=== PATIENT | male | born 1955 | race Caucasian/White ===

== ENCOUNTER 2016-06-23 09:46 | Inpatient (IN) | payer OTHER ==
[2016-06-23] VITALS (51 sets, daily range): BP systolic 98–162; BP diastolic 46–104; PULSE 65–125; RESP 12–41; Ht 170.2 cm; Wt 114.0 kg
[~2016-06-23] VITALS: Ht 170.2 cm; Wt 114.0 kg
[~2016-06-23 09:46] MED LIST: BISA-57 PO; CEFAZOLIN 1 GM INJ ONE; ENAL10TA78 PO; HYDR-762 PO; SENN-53 PO; SUCCINYLCHOLINE CHLORIDE 100 MG/5 ML SYG IV ONE
[2016-06-23] MEDS ORDERED: morphine 2 MG INJ IV ONE (12:00)
[2016-06-23] MEDS ORDERED: MIDAZOLAM 1 MG/ML 2 ML INJ ONE ×2 (12:03→13:05)
[2016-06-23] MEDS ORDERED: GLYCOPYRROLATE 0.4 MG INJ ONE (12:03)
[2016-06-23] MEDS ORDERED: ROCURONIUM 50 MG INJ ONE (12:03)
[2016-06-23] MEDS ORDERED: PROPOFOL 20 ML ONE (12:03)
[2016-06-23] MEDS ORDERED: FENTAnyl 50 MCG/ML VIAL ONE ×2 (12:03→15:34)
[2016-06-23] MEDS ORDERED: NEOSTIGMINE 3 MG/3 ML SYRINGE ONE (12:03)
[2016-06-23] MEDS ORDERED: LIDOCAINE 2% (SDV) 5 ML INJ ONE (12:03)
[2016-06-23] MEDS ORDERED: DEXAMETHASONE 4 MG/ML 1 ML INJ ONE (12:04)
[2016-06-23] MEDS ORDERED: ONDANSETRON 4 MG INJ ONE (12:04)
[2016-06-23] MEDS ORDERED: ATOR10TA65 PO (12:05)
[2016-06-23] MEDS ORDERED: QUIN10TA19 PO (12:05)
[2016-06-23] MEDS ORDERED: ASPI-664 PO (12:05)
[2016-06-23] MEDS ORDERED: DOCU-159 PO (12:05)
[2016-06-23] MEDS ORDERED: TEMA30CA PO (12:05)
[2016-06-23] MEDS ORDERED: CEPH500C PO (12:05)
--- NOTE | 2016-06-23 12:09 | HPN ---
Date/Time of Note Date/Time of Note DATE: 06/23/16 TIME: 12:09 Interval H&P Admission Note Pt. seen H&P reviewed: No system changes SHERLY ROGERS PA-C Jun 23, 2016 12:09
[2016-06-23] MEDS ORDERED: morphine 4 MG/ML VIAL IV STA (12:13)
[2016-06-23] MEDS ORDERED: FENTAnyl 50 MCG/ML VIAL IV PRN ×2 (12:30)
[2016-06-23] MEDS ORDERED: EPHEDrine SULFATE 50 MG/5 ML SYG IV PRN (12:30)
[2016-06-23] MEDS ORDERED: morphine (1 MG/ML) 10ML SYRINGE IV PRN ×3 (12:30)
[2016-06-23] MEDS ORDERED: DIPHENHYDRAMINE 50 MG INJ IV PRN (12:30)
[2016-06-23] MEDS ORDERED: HYDROmorphONE (0.2 MG/ML) 10ML SYG IV PRN ×2 (12:30)
[2016-06-23] MEDS ORDERED: MEPERIDINE 25 MG INJ IV PRN (12:30)
[2016-06-23] MEDS ORDERED: ATROPINE 1 MG/10 ML SYRINGE IV PRN (12:30)
[2016-06-23] MEDS ORDERED: OXYCODONE/ACETAMINOPHEN (5/325) TAB PO PRN ×2 (12:30)
[2016-06-23] MEDS ORDERED: MIDAZOLAM 1 MG/ML 2 ML INJ IV PRN (12:30)
[2016-06-23] MEDS ORDERED: ONDANSETRON 4 MG INJ IV PRN ×2 (12:30→14:30)
[2016-06-23] MEDS ORDERED: hydrALAzine 20 MG INJ IV PRN (12:30)
[2016-06-23] MEDS ORDERED: LABETALOL HCL 20MG INJ IV PRN (12:30)
[2016-06-23] MEDS ORDERED: MIDAZOLAM 1 MG/ML 2 ML INJ IV ONE (13:00)
[2016-06-23] MEDS ORDERED: LIDOCAINE 0.5%/EPI (MDV) 50 ML INJ ONE (13:03)
[2016-06-23] MEDS ORDERED: GELATIN SIZE 100 SPONGE ONE (13:03)
[2016-06-23] MEDS ORDERED: THROMBIN 5000 UNIT VIAL ONE (13:04)
[2016-06-23] MEDS ORDERED: POLYMYXIN/BACITRACIN 1L IRRIG ONE (13:04)
--- NOTE | 2016-06-23 13:42 | PREOPHP ---
DATE OF ADMISSION: 06/23/2016 HISTORY OF PRESENT ILLNESS: The patient was originally seen in the office with a complaint of low b ack pain, pain shooting down to both of his lower extremities, especially on the right side. He sta luis that he was also having neck pain, with pain to the shoulders and has not been ambulatory, using a wheelchair to get around. The patient was sent for MRI of the cervical, thoracic and lumbar spin e. Results were reviewed, which showed the patient had severe cervical stenosis at C6 C7, with evid ence of cord compression. The patient had evidence of radiculopathy, had evidence of myelopathy. H e was quadriplegic, could not walk. He uses a wheelchair to get around. His condition is getting w orse. The patient will need surgical decompression of the cervical spine as soon as possible. He i s having myelopathy with quadriparesis. PAST MEDICAL HISTORY: Per chart. PAST SURGICAL HISTORY: Complex genitalia surgery, cholecystectomy, lymphedema surgery. SOCIAL HISTORY: Lives with . ALLERGIES: PER CHART. FAMILY HISTORY: Unremarkable. REVIEW OF SYSTEMS: Additional 10-point review of systems conducted. Pertinent positives in the HPI, otherwise negative. PHYSICAL EXAMINATION: GENERAL: The patient is awake, alert, oriented, followed commands properly. HEENT: Head is atraumatic, normocephalic. Eyes, sclerae area clear, nonicteric. TMs intact. Pupi ls equal and reactive. No . NECK: Supple, no thyromegaly, no JVD. No accessory muscle usage. PULMONARY: No dyspnea, no tachypnea. CARDIOVASCULAR: The patient has extensive pedal edema, especially on the right side, possibly lymph edema as well. ABDOMEN: Soft, without guarding. PERIPHERAL VASCULAR: Has lymphedema, right greater than left. NEUROLOGIC: GCS 15. Cranial nerves I through XII are intact. No gross abnormalities noted. EXTREMITIES: Upper extremity examination, the patient has weakness in both of his lower and upper ex tremities, right side greater than the left. Sensation is intact throughout. Lower extremity exami nation difficulty with range of motion in the hips, right greater than left. Difficulty with range of motion of the right knee, greater than left. Difficulty with ankle flexion and extension, right greater than left. Sensation is intact. Strength, right side is weaker compared to the left. MRI findings: Severe cervical stenosis C6-C7, with cord compression. RECOMMENDATION: The patient is a middle-aged male who arrived to the office with a complaint of nec k pain, weakness in the upper and lower extremities, and difficulty with ambulation. MRI reviewed, and shows severe cervical stenosis at C6-C7, with cord compression and myelopathy. Patient is quadr iplegic at this point. Conservative management will not benefit this patient. He has been develope d quadriplegia at this point, he has cord compression on cervical MRI. The patient will need immedi ate decompression of the cervical spine, in the form of cervical 6 and cervical 7 laminectomy with p ossible in situ fusion. The operation was discussed with the patient in great detail. Complication s were explained, including bleeding, infection, permanent neurological damage, complications with a nesthesia, including a myocardial infarction . The patient has agreed to the surgical interven tion. Preop was performed. The patient has been cleared by the primary physician. The patient will be admitted to the hospital after surgical decompression of the cervical spine for further care and management. Thank you again. The patient was seen and examined. Discussed with Dr. Castellano. Dictated By: SHERLY SUH for RAFAEL MCKINLEY/MARILYN Conf#: [id number] DID#: [id number]
[2016-06-23] MEDS ORDERED: hydrALAzine 20 MG INJ ONE (14:39)
[2016-06-23] MEDS ORDERED: LABETALOL HCL 20MG INJ ONE (15:32)
[2016-06-23] MEDS ORDERED: HYDROmorphONE (0.2 MG/ML) 10ML SYG IV ONE (16:53)
[2016-06-23] MEDS ORDERED: ALBUTEROL 0.083% (NEB) 2.5 MG/3 ML AMP ONE (17:03)
[2016-06-23] MEDS ORDERED: DIAZEPAM 5 MG/ML SYG ONE (17:06)
[2016-06-23] MEDS ORDERED: DIAZEPAM 5 MG/ML SYG IV STA (17:31)
[2016-06-23] MEDS: HYDROmorphONE (0.2 MG/ML) 10ML SYG IV PRN ×4 (17:34→18:22)
[2016-06-23] MEDS ORDERED: HALOPERIDOL 5 MG INJ ONE (19:59)
[2016-06-23] MEDS: DEXTROSE 5%-LR 1,000 ML IV SCH (20:19)
[2016-06-23] MEDS: CEFAZOLIN 1 GM/50 ML (PMX) 50 ML IVPB SCH (21:42)
[2016-06-23] MEDS: morphine 2 MG INJ IV PRN (22:10)
[2016-06-23] MEDS: HYDROCODONE/APAP (10/325) TAB PO PRN (23:45)
[2016-06-24] MEDS ORDERED: ACETAMINOPHEN 1000MG/100ML IV 100 ML IVPB PRN
[2016-06-24] MEDS: morphine 2 MG INJ IV PRN ×6 (01:03→22:26)
[2016-06-24 04:00] VITALS: BP 134/62; PULSE 92; RESP 18
[2016-06-24] MEDS: DEXTROSE 5%-LR 1,000 ML IV SCH ×2 (04:48→12:02)
[2016-06-24] MEDS: HYDROCODONE/APAP (10/325) TAB PO PRN ×3 (04:50→23:36)
[2016-06-24 05:08] LABS: ADD SCAN DIFF NO
[2016-06-24 05:17] LABS: BASOPHILS % 0.2 % (0.0-2.0); HEMATOCRIT 40.5 % (42.0-52.0); HEMOGLOBIN 13.3 g/dl (14.0-18.0); LYMPHOCYTES # 0.9 10^3/ul (0.8-2.9); LYMPHOCYTES % 7.5 % (15.0-51.0); MEAN CORPUSCULAR HGB CONC 32.8 g/dl (32.0-37.0); MEAN CORPUSCULAR VOLUME 88.2 fl (82.0-101.0); MEAN PLATELET VOLUME 10.2 fl (7.4-10.4); MONOCYTE # 0.8 10^3/ul (0.3-0.9); MONOCYTES % 6.8 % (0.0-11.0); NEUTROPHIL # 10.4 10^3/ul (1.6-7.5); NEUTROPHILS % 85.3 % (39.0-77.0); PLATELET COUNT 267 10^3/UL (140-415); RED BLOOD COUNT 4.59 10^6/ul (4.70-6.10); RED CELL DISTRIBUTION WIDTH 13.7 % (11.5-14.5); WHITE BLOOD COUNT 12.2 10^3/ul (4.8-10.8)
[2016-06-24] MEDS: LORAZEPAM 1 MG TAB PO PRN ×2 (05:33→12:02)
[2016-06-24 05:46] LABS: POTASSIUM 3.7 mmol/L (3.5-5.1)
[2016-06-24 05:49] LABS: CREATININE 0.69 mg/dl (0.61-1.24)
[2016-06-24 05:50] LABS: CALCIUM 8.6 mg/dl (8.4-10.2)
[2016-06-24] MEDS: CEFAZOLIN 1 GM/50 ML (PMX) 50 ML IVPB SCH ×3 (06:13→22:20)
[2016-06-24 07:00] VITALS: BP 167/81; RESP 20
--- NOTE | 2016-06-24 08:15 | HP ---
DATE OF ADMISSION: 06/23/2016 HISTORY OF PRESENT ILLNESS: The patient is a 60-year-old gentleman with history of hypertension, ch ronic lymphedema secondary to [place] disease, hypertension, anxiety, depression, schizoaffective dis order, coronary artery disease, peripheral vascular disease, dyslipidemia, morbid obesity. Was eval uated by Dr. Singh initially with lower back pain radiating to both lower extremities. Subsequent ly, the patient also started having neck pain with pain to the shoulder and was having difficulty am bulating and was using a wheelchair to get around. The patient underwent MRI of the C-spine, thorac ic spine and lumbar spine, and was noted to have a severe cervical stenosis at C6-C7 with evidence o f cord compression. The patient also had evidence of radiculopathy and myelopathy. The patient was quadriplegic and was progressively getting worse. The patient underwent elective decompression of the cervical spine. The patient postoperatively has transient agitation which was managed with jonah odiazepine. The patient was seen in the recovery room and was lethargic. Review of systems could n ot be obtained. Patient did not have any vomiting after surgery. The patient was not short of samara th or wheezing. PAST MEDICAL HISTORY: The patient has history of chronic pain syndrome, anxiety, hypotestosteronism . PAST SURGICAL HISTORY: Status post skin graft, cholecystectomy, debridement of the leg, skin graft of the leg, debridement of leg wounds with skin graft. FAMILY HISTORY: Father had stroke. Mother had congenital lymphedema. ALLERGIES: NONE. SOCIAL HISTORY: No smoking, no alcohol. PHYSICAL EXAMINATION: GENERAL: The patient is lethargic, arousable. C-spine collar in place. VITAL SIGNS: Temperature 97.1, pulse 98, respirations 20, blood pressure 138/72, O2 saturation 100% on mask, which was subsequently removed and the patient was put on nasal cannula and was saturating 97%. HEENT: Conjunctivae and lids normal. Nose and ears normal externally. NECK: The patient has C-spine collar on. CHEST: Fairly clear. CARDIOVASCULAR: S1, S2 normal. No murmur. ABDOMEN: Soft, obese, nontender. EXTREMITIES: Bilateral lymphedema of both lower extremities and also evidence of previous surgery i n the legs. NEUROLOGIC: The patient is lethargic but arousable, however, a detailed neurological examination wa s deferred due to patient's postoperative status. IMPRESSION: 1. Cervical myelopathy. 2. Coronary artery disease. 3. Congenital lymphedema. 4. Hypertension. 5. Depression. 6. Schizoaffective disorder. 7. Hypotestosteronism. 8. Dyslipidemia. PLAN: The patient will be admitted on medical floor. He will be continued on IV cefazolin as per pr otocol and will be given IV fluid, IV morphine for pain control. The patient will also be given Per cocet for moderate pain. The patient will be continued on Lipitor, Vasotec, and stool softener as a t home. The patient's preop labs revealed a white count of 6.3, hemoglobin 15.6. We will continue t o follow him postoperatively. Further recommendations will depend on the patient's hospital course and recommendations from Dr. Singh. Dictated By: WILIAN SAMAYOA/MARILYN Conf#: [id number] DID#: [id number] CC: RAFAEL SINGH MD; WILIAN OLIVARES MD;*End*
[2016-06-24 08:30] VITALS: BP 130/68; PULSE 90; RESP 18
[2016-06-24] MEDS: SENNA TAB PO SCH ×2 (09:00→21:00)
[2016-06-24] MEDS: BISACODYL (EC) 5 MG TAB PO SCH (09:00)
[2016-06-24] MEDS: DOCUSATE SODIUM 100 MG CAP PO SCH ×2 (09:00→21:00)
[2016-06-24] MEDS: ENALAPRIL 10 MG TAB PO SCH (09:04)
--- NOTE | 2016-06-24 10:36 | RADRPT ---
PROCEDURE: Intraoperative imaging of the cervical spine with fluoroscopy. CLINICAL INDICATION: Neck pain. Intraoperative. TECHNIQUE: A single lateral image of the cervical spine once obtained in the operating room with a n image intensifier. No radiologist was in attendance. 5.6 seconds of fluoroscopy time was used. COMPARISON: No prior study is available for comparison. FINDINGS: Surgical instruments are noted overlying the cervical spine. IMPRESSION: 1. Intraoperative imaging of the cervical spine. RPTAT: QQ .Gonsalo Christopher MD, MD Date Time Electronically viewed and signed by .Gonsalo Christopher MD, MD on 06/24/2016 10:35 .R/
--- NOTE | 2016-06-24 11:09 | PN ---
Date/Time of Note Date/Time of Note DATE: 06/24/16 TIME: 11:07 Assessment/Plan VTE Prophylaxis VTE Prophylaxis Intervention: other Lines/Catheters IV Catheter Type (from Nrsg): Peripheral IV Urinary Cath still in place: Yes Reason Cath still needed: skin wounds contaminated by urine Assessment/Plan Chief Complaint/Hosp Course 1. Cervical myelopathy. - s/p surgery 2. Coronary artery disease. - continue to monitor 3. Congenital lymphedema. 4. Hypertension. 5. Depression. 6. Schizoaffective disorder. 7. Hypotestosteronism. 8. Dyslipidemia. Problems: Subjective 24 Hr Interval Summary Free Text/Dictation Patient is uncomfortable with neck pain Exam/Review of Systems Vital Signs Vitals Vital Signs Date Time Temp Pulse Resp B/P Pulse Ox O2 Delivery O2 Flow Rate FiO2 06/24/16 07:00 98.7 90 20 167/81 99 06/24/16 04:00 Nasal Cannula 06/23/16 16:45 80 Intake and Output 06/23/16 06/23/16 06/24/16 15:00 23:00 07:00 Intake Total 20 ml 850 ml 1350 ml Output Total 850 ml 1320 ml Balance 20 ml 0 ml 30 ml Exam Constitutional: well developed Head: atraumatic, normocephalic Neck: supple Cardiovascular: regular rate and rhythm Gastrointestinal: non-tender, soft Results Result Diagram: 06/24/16 0429 06/24/16 0429 Results 24 hrs Laboratory Tests Test 06/24/16 04:29 Anion Gap 15 Basophils # 0.0 Basophils % 0.2 Blood Urea Nitrogen 10 Calcium Level 8.6 Carbon Dioxide Level 27 Chloride Level 100 Creatinine 0.69 Eosinophils # 0.0 Eosinophils % 0.0 Glucose Level 168 Hematocrit 40.5 L Hemoglobin 13.3 L Lymphocytes # 0.9 Lymphocytes % 7.5 L Mean Corpuscular Hemoglobin 29.0 Mean Corpuscular Hemoglobin Concent 32.8 Mean Corpuscular Volume 88.2 Mean Platelet Volume 10.2 Monocytes # 0.8 Monocytes % 6.8 Neutrophils # 10.4 H Neutrophils % 85.3 H Nucleated Red Blood Cells # 0.0 Nucleated Red Blood Cells % 0.0 Platelet Count 267 Potassium Level 3.7 Red Blood Count 4.59 L Red Cell Distribution Width 13.7 Sodium Level 138 White Blood Count 12.2 H Medications Medications Current Medications Dextrose/Lactated Ringer's (D5-Lr) 1,000 ml @ 70 mls/hr [id number] IV Last administered on 06/23/16 20:19; Admin Dose 70 MLS/HR; Start 06/23/16 at 14:30 Morphine Sulfate (morphine) 2 mg Q3H PRN IV severe pain Last administered on 10:24; Admin Dose 2 MG; Start 06/23/16 at 14:30 Acetaminophen/ Hydrocodone Bitart ([place] (10/325)) 1 tab Q4H PRN PO PAIN Last administered on 06/24/16 04:50; Admin Dose 1 TAB; Start 06/23/16 at 14:30 Ondansetron HCl 4 mg 4 mg Q6H PRN IV NAUSEA AND/OR VOMITING; Start 06/23/16 at 14:30 Cefazolin Sodium (Ancef 1 Gm/50 ml (Pmx)) 50 ml @ 100 mls/hr Q8 IVPB Last administered on 06/24/16 06:13; Admin Dose 100 MLS/HR; Start 06/23/16 at 22:00; Stop 06/24/16 at 22:00 Atorvastatin Calcium (Lipitor) 10 mg QHS PO ; Start 06/24/16 at 21:00 Bisacodyl (Dulcolax) 5 mg DAILY PO ; Start 06/24/16 at 09:00 Docusate Sodium (Colace) 100 mg BID PO ; Start 06/24/16 at 09:00 Enalapril Maleate (Vasotec) 10 mg DAILY PO Last administered on 06/24/16 09:04 ; Admin Dose 10 MG; Start 06/24/16 at 09:00 Senna 1 tab 1 tab BID PO ; Start 06/24/16 at 09:00 Acetaminophen (Ofirmev 1000mg/ 100ml Iv) 100 ml @ 400 mls/hr Q6H PRN IVPB PAIN LEVEL 1-3 OR FEVER; Start 06/24/16 at 00:00 Lorazepam (Ativan) 1 mg Q6H PRN PO ANXIETY Last administered on 06/24/16 05:33 ; Admin Dose 1 MG; Start 06/24/16 at 05:30 AMILCAR RICK Jun 24, 2016 11:09
[2016-06-24] MEDS: CYCLOBENZAPRINE 10 MG TAB PO PRN (16:32)
[2016-06-24 21:15] VITALS: BP 147/74; RESP 20
[2016-06-24] MEDS: ATORVASTATIN 10 MG TAB PO SCH (22:19)
[2016-06-25] MEDS: LORAZEPAM 1 MG TAB PO PRN ×2 (00:12→14:19)
[2016-06-25 00:45] VITALS: BP 142/67; RESP 20
[2016-06-25] MEDS: CYCLOBENZAPRINE 10 MG TAB PO PRN (01:08)
[2016-06-25] MEDS: DEXTROSE 5%-LR 1,000 ML IV SCH ×3 (06:10→21:21)
[2016-06-25] MEDS: HYDROCODONE/APAP (10/325) TAB PO PRN ×3 (06:54→23:29)
--- NOTE | 2016-06-25 07:18 | CONS ---
Date/Time of Note Date/Time of Note DATE: 06/25/16 TIME: 07:14 Assessment/Plan Assessment/Plan Additional Assessment/Plan seen/examined awake/alert/follows/moves all/sensation intact cervical 6-7 laminectomy drain intact,40 cc overnight will change morphine to dilaudid, pt co morphine causes dry mouth. pt/ot mri cervical pending wound care Consultation Date/Type/Reason Admit Date/Time Jun 23, 2016 at 09:46 Initial Consult Date Exam/Review of Systems Vital Signs Vitals Vital Signs Date Time Temp Pulse Resp B/P Pulse Ox O2 Delivery O2 Flow Rate FiO2 06/25/16 00:45 97.5 102 20 142/67 93 06/24/16 21:30 Nasal Cannula 2.0 06/23/16 16:45 80 Intake and Output 06/24/16 06/24/16 06/25/16 15:00 23:00 07:00 Intake Total 50 ml 1860 ml 1650 ml Output Total 3050 ml 2540 ml Balance 50 ml -1190 ml -890 ml Results Result Diagram: 06/24/16 0429 06/24/16 0429 Medications Medications Current Medications Dextrose/Lactated Ringer's (D5-Lr) 1,000 ml @ 70 mls/hr [id number] IV Last administered on 06/25/16 06:10; Admin Dose 70 MLS/HR; Start 06/23/16 at 14:30 Acetaminophen/ Hydrocodone Bitart ([place] (10/325)) 1 tab Q4H PRN PO PAIN Last administered on 06/25/16 06:54; Admin Dose 1 TAB; Start 06/23/16 at 14:30 Ondansetron HCl (Zofran Inj) 4 mg Q6H PRN IV NAUSEA AND/OR VOMITING; Start 06/23 at 14:30 Atorvastatin Calcium (Lipitor) 10 mg QHS PO Last administered on 06/24/16 22:19 ; Admin Dose 10 MG; Start 06/24/16 at 21:00 Bisacodyl (Dulcolax) 5 mg DAILY PO ; Start 06/24/16 at 09:00 Docusate Sodium (Colace) 100 mg BID PO ; Start 06/24/16 at 09:00 Enalapril Maleate (Vasotec) 10 mg DAILY PO Last administered on 06/24/16 09:04 ; Admin Dose 10 MG; Start 06/24/16 at 09:00 Senna 1 tab 1 tab BID PO ; Start 06/24/16 at 09:00 Acetaminophen (Ofirmev 1000mg/ 100ml Iv) 100 ml @ 400 mls/hr Q6H PRN IVPB PAIN LEVEL 1-3 OR FEVER; Start 06/24/16 at 00:00 Lorazepam (Ativan) 1 mg Q6H PRN PO ANXIETY Last administered on 06/25/16 00:12 ; Admin Dose 1 MG; Start 06/24/16 at 05:30 Cyclobenzaprine HCl (Flexeril) 10 mg Q8 PRN PO spasm Last administered on 01:08; Admin Dose 10 MG; Start 06/24/16 at 16:30 Hydromorphone HCl (Dilaudid) 1 mg Q4HWA PRN IV PAIN; Start 06/25/16 at 07:30; Status SHERLY JIMENES PA-C Jun 25, 2016 07:18
[2016-06-25 07:39] VITALS: BP 137/69; RESP 16
[2016-06-25] MEDS: HYDROmorphONE 1 MG/ML SYG IV PRN ×3 (07:43→11:35)
[2016-06-25] MEDS: SENNA TAB PO SCH ×2 (09:00→21:21)
[2016-06-25] MEDS: ENALAPRIL 10 MG TAB PO SCH (09:00)
[2016-06-25] MEDS: DOCUSATE SODIUM 100 MG CAP PO SCH ×2 (09:00→21:21)
[2016-06-25] MEDS: BISACODYL (EC) 5 MG TAB PO SCH (09:00)
--- NOTE | 2016-06-25 12:38 | PN ---
Date/Time of Note Date/Time of Note DATE: 06/25/16 TIME: 12:37 Assessment/Plan VTE Prophylaxis VTE Prophylaxis Intervention: other Lines/Catheters IV Catheter Type (from Nrsg): Peripheral IV Urinary Cath still in place: Yes Reason Cath still needed: skin wounds contaminated by urine Assessment/Plan Chief Complaint/Hosp Course 1. Cervical myelopathy. - s/p surgery 2. Coronary artery disease. - continue to monitor 3. Congenital lymphedema. 4. Hypertension. 5. Depression. 6. Schizoaffective disorder. 7. Hypotestosteronism. 8. Dyslipidemia. Problems: Subjective 24 Hr Interval Summary Free Text/Dictation Still with neck pain Exam/Review of Systems Vital Signs Vitals Vital Signs Date Time Temp Pulse Resp B/P Pulse Ox O2 Delivery O2 Flow Rate FiO2 06/25/16 08:00 Nasal Cannula 2.0 06/25/16 07:39 98.5 99 16 137/69 98 06/23/16 16:45 80 Intake and Output 06/24/16 06/24/16 06/25/16 15:00 23:00 07:00 Intake Total 50 ml 1860 ml 1650 ml Output Total 3050 ml 2540 ml Balance 50 ml -1190 ml -890 ml Exam Constitutional: well developed Head: normocephalic Neck: supple Respiratory: clear to auscultation Cardiovascular: regular rate and rhythm Gastrointestinal: non-tender, soft Extremities: normal pulses Results Result Diagram: 06/24/16 0429 06/24/16 0429 Medications Medications Current Medications Dextrose/Lactated Ringer's (D5-Lr) 1,000 ml @ 70 mls/hr [id number] IV Last administered on 06/25/16 06:10; Admin Dose 70 MLS/HR; Start 06/23/16 at 14:30 Acetaminophen/ Hydrocodone Bitart ([place] (10/325)) 1 tab Q4H PRN PO PAIN Last administered on 06/25/16 06:54; Admin Dose 1 TAB; Start 06/23/16 at 14:30 Ondansetron HCl (Zofran Inj) 4 mg Q6H PRN IV NAUSEA AND/OR VOMITING; Start 06/23 at 14:30 Atorvastatin Calcium (Lipitor) 10 mg QHS PO Last administered on 06/24/16 22:19 ; Admin Dose 10 MG; Start 06/24/16 at 21:00 Bisacodyl (Dulcolax) 5 mg DAILY PO ; Start 06/24/16 at 09:00 Docusate Sodium (Colace) 100 mg BID PO ; Start 06/24/16 at 09:00 Enalapril Maleate (Vasotec) 10 mg DAILY PO Last administered on 06/24/16 09:04 ; Admin Dose 10 MG; Start 06/24/16 at 09:00 Senna 1 tab 1 tab BID PO ; Start 06/24/16 at 09:00 Acetaminophen (Ofirmev 1000mg/ 100ml Iv) 100 ml @ 400 mls/hr Q6H PRN IVPB PAIN LEVEL 1-3 OR FEVER; Start 06/24/16 at 00:00 Lorazepam (Ativan) 1 mg Q6H PRN PO ANXIETY Last administered on 06/25/16 00:12 ; Admin Dose 1 MG; Start 06/24/16 at 05:30 Cyclobenzaprine HCl (Flexeril) 10 mg Q8 PRN PO spasm Last administered on 01:08; Admin Dose 10 MG; Start 06/24/16 at 16:30 Hydromorphone HCl (Dilaudid) 1 mg Q4HWA PRN IV PAIN Last administered on 11:35; Admin Dose 1 MG; Start 06/25/16 at 07:30 AMILCAR RICK 5, 2017 12:38
[2016-06-25] MEDS ORDERED: HYDROmorphONE 1 MG/ML SYG IV STA (12:51)
[2016-06-25] MEDS ORDERED: HYDROmorphONE 2 MG/ML SYG IV SCH (12:58)
[2016-06-25] MEDS: HYDROmorphONE 2 MG/ML SYG IV PRN ×3 (15:02→21:23)
--- NOTE | 2016-06-25 18:13 | RADRPT ---
PROCEDURE: MR Cervical Spine. CLINICAL INDICATION: Status post cervical decompression, cord compression. TECHNIQUE: An MRI of the cervical spine was performed on a [employer] short bore high-definition 3 meghan [employer]ir[employer] utilizing the following sequences: Sagittal T1 weighted, sagittal and axial T2 weighted, sagi ttal STIR, and axial GRE. COMPARISON: No prior studies are available for comparison. FINDINGS: There is straightening of the normal lordosis of the cervical spine. Trace anterolisthesis of C3 on C4 is evident. 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 Postsurgical changes are seen at multiple levels will be described below. The craniocervical junction is unremarkable. There is evidence of underlying congenital central s tenosis with the AP diameter of the canal measuring approximately 10 mm at multiple levels. C2-3: Moderate disk space narrowing is evident. There is a broad-based osteophyte/disk complex with a superimposed central disk protrusion measuring approximately 3.6 mm. This together ligamentum fl avum hypertrophy results in severe acquired central canal stenosis with the AP diameter of the canal measuring approximately 4.7 mm centrally. There is cord effacement without cord signal abnormality . Uncovertebral osteophytes and facet arthropathy contribute to moderate - severe bilateral foramina l narrowing. There is evidence of fluid signal intensity surrounding the right greater than left fa cet joints and lamina. Edema is seen within the adjacent soft tissues. A small amount of preverteb ral fluid is evident. C3-4: The disk is normal in height an osteophyte/disk complex is noted. This effaces the ventral th ecal sac resulting in severe acquired central canal stenosis with the AP diameter of the canal measu ring just under 6 mm. Mild cord effacement is seen without cord signal abnormality. Uncovertebral o steophytes and facet arthropathy contribute to moderate - severe right and severe left foraminal naila rowing. C4-5: Mild disk space narrowing is seen. An osteophyte/disk complex is present. There has been pos terior decompression at the lower disk level with no gross central stenosis seen at the upper C5 lev el. At the C4-5 disk level there appears to be moderate central stenosis. Moderate right and modera tely severe left foraminal narrowing is evident. Postsurgical changes are seen within the posterior soft tissues and along the lateral musculature of the spine bilaterally. 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 There appears t o have been posterior decompression at this level with partial hemilaminectomies identified. There is no gross evidence of bony central stenosis. There may be a very small amount of postoperative fl uid or possibly blood products in the posterior epidural space, though no significant mass effect up on the cord is seen. The foramen appear adequately patent. Postsurgical changes are seen in the la teral neck musculature as described above. C6-7: There is moderately severe discogenic disease with Modic type 2 discogenic endplate changes. T here is prominent anterior spondylosis. There is an osteophyte/disk complex with prominent T2-weigh luis hypointensity and T1-weighted hyperintensity in what appears to be a central disk extrusion that migrates below the disk space. This may reflect blood products or calcification. This presumed ex truded disk measures just over 5 mm in AP diameter. There has been posterior decompression at this level without evidence of significant residual central stenosis. The cord is displaced posteriorly by this presumed disk extrusion. There is increased T2-weighted signal intensity seen within the co rd at the lower C6 level and extending down to the mid C7 level, likely reflecting edema/myelomalaci a. Minimal postoperative changes are seen within the posterior epidural space, likely reflecting fl uid or possibly hemorrhage. This measures less than 2 mm in thickness and does not cause significant mass effect on the cord. Uncovertebral osteophytes and facet arthropathy contributes to severe bilateral foraminal narrowing. Postoperative changes are seen within the posterior and later al soft tissues. C7-T1: The disk is normal in height. There is a small osteophyte/disk complex with what appears to be minimal extruded disk extending below the disk space measuring approximate 2 mm in AP diameter. There is no significant central stenosis. There has been posterior decompression at the C7 level wi th a small amount of postoperative fluid or hemorrhage in the epidural space posteriorly. This does not cause significant mass effect upon the thecal sac. Uncovertebral osteophytes and facet arthrop athy results in moderately severe left and minimal right foraminal narrowing. IMPRESSION: 1. The patient has undergone recent posterior decompression from C5-C7 with no gross bony central s tenosis seen at these levels as described above. Postoperative changes are seen within the adjacent soft tissues. There is minimal fluid/hemorrhage in the posterior epidural space without significan t mass effect upon the thecal sac. 2. At C6-7, there is moderately severe discogenic disease. There is what appears to be extruded di sk, containing possibly blood products or significant calcifications, measuring just over 5 mm in AP diameter. This does displace the cervical cord; where, due to posterior decompression there is no significant mass effect at this time upon the cord. There is evidence of myelomalacia/edema within the cord. Continued follow-up is recommended. Correlated with prior studies may be useful. 3. Severe acquired central canal stenosis at C2-3 and C3-4 as described above. The findings are mo re pronounced at C2-3. Again, this is superimposed upon a congenitally slender canal. 4. There is moderate central stenosis at C4-5 just above the posterior decompression level. 5. 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 6. Multilevel significant foraminal stenosis as outlined above. RPTAT: HJAH .Nehal Claros MD, MD Date Time Electronically viewed and signed by .Nehal Claros MD, on 06/25/2016 18:13 .H/
[2016-06-25 19:59] VITALS: BP 131/80; RESP 20
[2016-06-25] MEDS: ATORVASTATIN 10 MG TAB PO SCH (21:21)
[2016-06-26] MEDS: HYDROmorphONE 2 MG/ML SYG IV PRN ×5 (00:59→15:31)
[2016-06-26 08:39] VITALS: BP 138/81; RESP 20
[2016-06-26] MEDS: HYDROCODONE/APAP (10/325) TAB PO PRN ×2 (08:46→22:56)
[2016-06-26] MEDS: ENALAPRIL 10 MG TAB PO SCH (08:47)
[2016-06-26] MEDS: SENNA TAB PO SCH ×2 (09:00→21:00)
[2016-06-26] MEDS: DOCUSATE SODIUM 100 MG CAP PO SCH ×2 (09:00→21:00)
[2016-06-26] MEDS: BISACODYL (EC) 5 MG TAB PO SCH (09:00)
[2016-06-26] MEDS: CYCLOBENZAPRINE 10 MG TAB PO PRN ×2 (09:11→20:43)
[2016-06-26 11:16] LABS: ADD SCAN DIFF NO
[2016-06-26 11:25] LABS: BASOPHILS % 0.3 % (0.0-2.0); EOSINOPHILS # 0.1 10^3/ul (0.0-0.5); EOSINOPHILS % 1.1 % (0.0-7.0); HEMATOCRIT 38.1 % (42.0-52.0); HEMOGLOBIN 12.4 g/dl (14.0-18.0); LYMPHOCYTES # 1.5 10^3/ul (0.8-2.9); LYMPHOCYTES % 14.3 % (15.0-51.0); MEAN CORPUSCULAR HGB CONC 32.5 g/dl (32.0-37.0); MEAN CORPUSCULAR VOLUME 89.2 fl (82.0-101.0); MEAN PLATELET VOLUME 9.9 fl (7.4-10.4); MONOCYTE # 1.1 10^3/ul (0.3-0.9); NEUTROPHIL # 7.8 10^3/ul (1.6-7.5); PLATELET COUNT 226 10^3/UL (140-415); RED BLOOD COUNT 4.27 10^6/ul (4.70-6.10); RED CELL DISTRIBUTION WIDTH 13.4 % (11.5-14.5); WHITE BLOOD COUNT 10.5 10^3/ul (4.8-10.8)
[2016-06-26] MEDS: DEXTROSE 5%-LR 1,000 ML IV SCH (12:34)
--- NOTE | 2016-06-26 16:38 | CONS ---
Date/Time of Note Date/Time of Note DATE: 06/26/16 TIME: 16:37 Assessment/Plan Assessment/Plan Additional Assessment/Plan seen/examined awake/alert/moves upper extremities/weakness in lower extremities cervical lami with in situ fusion repeat mri shows good decompression drain dced cont pt/ot dc planning Consultation Date/Type/Reason Admit Date/Time Jun 23, 2016 at 09:46 Exam/Review of Systems Vital Signs Vitals Vital Signs Date Time Temp Pulse Resp B/P Pulse Ox O2 Delivery O2 Flow Rate FiO2 06/26/16 08:39 97.8 74 20 138/81 96 06/25/16 08:00 Nasal Cannula 2.0 06/23/16 16:45 80 Intake and Output 06/25/16 06/25/16 06/26/16 15:00 23:00 07:00 Intake Total 750 ml 975 ml Output Total 1150 ml 2545 ml Balance -400 ml -1570 ml Results Result Diagram: 06/26/16 1105 06/24/16 0429 Results 24 hrs Laboratory Tests Test 06/25/16 20:34 06/26/16 11:05 Bedside Glucose 137 Basophils # 0.0 Basophils % 0.3 Eosinophils # 0.1 Eosinophils % 1.1 Hematocrit 38.1 L Hemoglobin 12.4 L Lymphocytes # 1.5 Lymphocytes % 14.3 L Mean Corpuscular Hemoglobin 29.0 Mean Corpuscular Hemoglobin Concent 32.5 Mean Corpuscular Volume 89.2 Mean Platelet Volume 9.9 Monocytes # 1.1 H Monocytes % 10.0 Neutrophils # 7.8 H Neutrophils % 74.0 Nucleated Red Blood Cells # 0.0 Nucleated Red Blood Cells % 0.0 Platelet Count 226 Red Blood Count 4.27 L Red Cell Distribution Width 13.4 White Blood Count 10.5 Medications Medications Current Medications Dextrose/Lactated Ringer's (D5-Lr) 1,000 ml @ 70 mls/hr [id number] IV Last administered on 06/26/16 12:34; Admin Dose 70 MLS/HR; Start 06/23/16 at 14:30 Acetaminophen/ Hydrocodone Bitart ([place] (10/325)) 1 tab Q4H PRN PO PAIN Last administered on 06/26/16 08:46; Admin Dose 1 TAB; Start 06/23/16 at 14:30 Ondansetron HCl (Zofran Inj) 4 mg Q6H PRN IV NAUSEA AND/OR VOMITING; Start 06/23 at 14:30 Atorvastatin Calcium (Lipitor) 10 mg QHS PO Last administered on 06/25/16 21:21 ; Admin Dose 10 MG; Start 06/24/16 at 21:00 Bisacodyl (Dulcolax) 5 mg DAILY PO ; Start 06/24/16 at 09:00 Docusate Sodium (Colace) 100 mg BID PO Last administered on 06/25/16 21:21; Admin Dose 100 MG; Start 06/24/16 at 09:00 Enalapril Maleate (Vasotec) 10 mg DAILY PO Last administered on 06/26/16 08:47 ; Admin Dose 10 MG; Start 06/24/16 at 09:00 Senna 1 tab 1 tab BID PO Last administered on 06/25/16 21:21; Admin Dose 1 TAB ; Start 06/24/16 at 09:00 Acetaminophen (Ofirmev 1000mg/ 100ml Iv) 100 ml @ 400 mls/hr Q6H PRN IVPB PAIN LEVEL 1-3 OR FEVER; Start 06/24/16 at 00:00 Lorazepam (Ativan) 1 mg Q6H PRN PO ANXIETY Last administered on 06/25/16 14:19 ; Admin Dose 1 MG; Start 06/24/16 at 05:30 Cyclobenzaprine HCl (Flexeril) 10 mg Q8 PRN PO spasm Last administered on 09:11; Admin Dose 10 MG; Start 06/24/16 at 16:30 Hydromorphone HCl (Dilaudid) 1.5 mg Q3H PRN IV PAIN Last administered on 15:31; Admin Dose 1.5 MG; Start 06/25/16 at 15:00 SHERLY ROGERS PA-C Jun 26, 2016 16:38
--- NOTE | 2016-06-26 16:49 | PN ---
Date/Time of Note Date/Time of Note DATE: 06/26/16 TIME: 16:43 Assessment/Plan VTE Prophylaxis VTE Prophylaxis Intervention: SCD's Lines/Catheters [facility]from [facility]): Peripheral IV Urinary Cath still in place: Yes Reason Cath still needed: urinary retention Assessment/Plan Assessment/Plan 1. Cervical myelopathy. Status post cervical 6-7 laminectomy. Continue to follow-up surgery recommendations. 2. Coronary artery disease. 3. Congenital lymphedema. 4. Hypertension. 5. Depression. 6. Schizoaffective disorder. 7. Hypotestosteronism. 8. Dyslipidemia. Continue Lipitor Further recommendations based on clinical course. Plan of care discussed with Dr. Olivera. Exam/Review of Systems Vital Signs Vitals Vital Signs Date Time Temp Pulse Resp B/P Pulse Ox O2 Delivery O2 Flow Rate FiO2 06/26/16 08:39 97.8 74 20 138/81 96 06/25/16 08:00 Nasal Cannula 2.0 06/23/16 16:45 80 Intake and Output 06/25/16 06/25/16 06/26/16 15:00 23:00 07:00 Intake Total 750 ml 975 ml Output Total 1150 ml 2545 ml Balance -400 ml -1570 ml Exam PHYSICAL EXAMINATION: GENERAL: Well-developed male in no acute distress HEENT: Conjunctivae and lids normal. Nose and ears normal externally. NECK: The patient has C-spine collar on. CHEST: Clear bilaterally CARDIOVASCULAR: S1, S2 normal. No murmur. ABDOMEN: Soft, obese, nontender. EXTREMITIES: Bilateral lymphedema of both lower extremities. Status post left above ankle amputation. NEUROLOGIC: Alert and oriented 3 Results Result Diagram: 06/26/16 1105 06/24/16 0429 Results 24 hrs Laboratory Tests Test 06/25/16 20:34 06/26/16 11:05 Bedside Glucose 137 Basophils # 0.0 Basophils % 0.3 Eosinophils # 0.1 Eosinophils % 1.1 Hematocrit 38.1 L Hemoglobin 12.4 L Lymphocytes # 1.5 Lymphocytes % 14.3 L Mean Corpuscular Hemoglobin 29.0 Mean Corpuscular Hemoglobin Concent 32.5 Mean Corpuscular Volume 89.2 Mean Platelet Volume 9.9 Monocytes # 1.1 H Monocytes % 10.0 Neutrophils # 7.8 H Neutrophils % 74.0 Nucleated Red Blood Cells # 0.0 Nucleated Red Blood Cells % 0.0 Platelet Count 226 Red Blood Count 4.27 L Red Cell Distribution Width 13.4 White Blood Count 10.5 Medications Medications Current Medications Dextrose/Lactated Ringer's (D5-Lr) 1,000 ml @ 70 mls/hr [id number] IV Last administered on 06/26/16 12:34; Admin Dose 70 MLS/HR; Start 06/23/16 at 14:30 Acetaminophen/ Hydrocodone Bitart ([place] (10/325)) 1 tab Q4H PRN PO PAIN Last administered on 06/26/16 08:46; Admin Dose 1 TAB; Start 06/23/16 at 14:30 Ondansetron HCl (Zofran Inj) 4 mg Q6H PRN IV NAUSEA AND/OR VOMITING; Start 06/23 at 14:30 Atorvastatin Calcium (Lipitor) 10 mg QHS PO Last administered on 06/25/16 21:21 ; Admin Dose 10 MG; Start 06/24/16 at 21:00 Bisacodyl (Dulcolax) 5 mg DAILY PO ; Start 06/24/16 at 09:00 Docusate Sodium (Colace) 100 mg BID PO Last administered on 06/25/16 21:21; Admin Dose 100 MG; Start 06/24/16 at 09:00 Enalapril Maleate (Vasotec) 10 mg DAILY PO Last administered on 06/26/16 08:47 ; Admin Dose 10 MG; Start 06/24/16 at 09:00 Senna 1 tab 1 tab BID PO Last administered on 06/25/16 21:21; Admin Dose 1 TAB ; Start 06/24/16 at 09:00 Acetaminophen (Ofirmev 1000mg/ 100ml Iv) 100 ml @ 400 mls/hr Q6H PRN IVPB PAIN LEVEL 1-3 OR FEVER; Start 06/24/16 at 00:00 Lorazepam (Ativan) 1 mg Q6H PRN PO ANXIETY Last administered on 06/25/16 14:19 ; Admin Dose 1 MG; Start 06/24/16 at 05:30 Cyclobenzaprine HCl (Flexeril) 10 mg Q8 PRN PO spasm Last administered on 09:11; Admin Dose 10 MG; Start 06/24/16 at 16:30 Hydromorphone HCl (Dilaudid) 1 mg Q2H PRN IV PAIN; Start 06/26/16 at 17:00; Status TIMV MICHELLE KOROMA Jun 26, 2016 16:48
[2016-06-26] MEDS: HYDROmorphONE 1 MG/ML SYG IV PRN ×2 (17:45→20:43)
[2016-06-26 20:08] VITALS: BP 132/79; RESP 20
[2016-06-26] MEDS: ATORVASTATIN 10 MG TAB PO SCH (20:43)
[2016-06-27] MEDS: HYDROCODONE/APAP (10/325) TAB PO PRN ×4 (04:34→23:47)
[2016-06-27] MEDS: DEXTROSE 5%-LR 1,000 ML IV SCH ×2 (04:34→18:26)
[2016-06-27 04:57] LABS: ADD SCAN DIFF NO
[2016-06-27 05:08] LABS: BASOPHILS % 0.4 % (0.0-2.0); EOSINOPHILS # 0.2 10^3/ul (0.0-0.5); EOSINOPHILS % 2.1 % (0.0-7.0); HEMATOCRIT 38.6 % (42.0-52.0); HEMOGLOBIN 12.8 g/dl (14.0-18.0); LYMPHOCYTES # 2.5 10^3/ul (0.8-2.9); LYMPHOCYTES % 23.8 % (15.0-51.0); MEAN CORPUSCULAR HEMOGLOBIN 29.3 pg (29.0-33.0); MEAN CORPUSCULAR HGB CONC 33.2 g/dl (32.0-37.0); MEAN CORPUSCULAR VOLUME 88.3 fl (82.0-101.0); MEAN PLATELET VOLUME 9.9 fl (7.4-10.4); MONOCYTE # 1.1 10^3/ul (0.3-0.9); MONOCYTES % 10.2 % (0.0-11.0); NEUTROPHIL # 6.6 10^3/ul (1.6-7.5); NEUTROPHILS % 63.2 % (39.0-77.0); PLATELET COUNT 265 10^3/UL (140-415); RED BLOOD COUNT 4.37 10^6/ul (4.70-6.10); RED CELL DISTRIBUTION WIDTH 13.2 % (11.5-14.5); WHITE BLOOD COUNT 10.4 10^3/ul (4.8-10.8)
[2016-06-27 05:33] LABS: CREATININE 0.68 mg/dl (0.61-1.24)
[2016-06-27 05:34] LABS: CALCIUM 8.8 mg/dl (8.4-10.2)
[2016-06-27 08:17] VITALS: BP 130/80; RESP 20
[2016-06-27] MEDS: DOCUSATE SODIUM 100 MG CAP PO SCH ×2 (09:00→19:47)
[2016-06-27] MEDS: BISACODYL (EC) 5 MG TAB PO SCH (09:00)
[2016-06-27] MEDS: SENNA TAB PO SCH ×2 (09:00→19:47)
[2016-06-27] MEDS: CYCLOBENZAPRINE 10 MG TAB PO PRN ×2 (09:59→19:46)
[2016-06-27] MEDS: ENALAPRIL 10 MG TAB PO SCH (09:59)
--- NOTE | 2016-06-27 18:33 | PN ---
Date/Time of Note Date/Time of Note DATE: 06/27/16 TIME: 18:32 Assessment/Plan VTE Prophylaxis VTE Prophylaxis Intervention: SCD's Lines/Catheters IV Catheter Type (from [facility]): Peripheral IV Central line still needed: Yes Urinary Cath still in place: Yes Reason Cath still needed: urinary retention Assessment/Plan Chief Complaint/Hosp Course Assessment/Plan 1. Cervical myelopathy. Status post cervical 6-7 laminectomy. Continue to follow-up surgery recommendations. 2. Coronary artery disease. 3. Congenital lymphedema. 4. Hypertension. 5. Depression. 6. Schizoaffective disorder. 7. Hypotestosteronism. 8. Dyslipidemia. Continue Lipitor Further recommendations based on clinical course. Plan of care discussed with Dr. Olivera. Problems: Subjective 24 Hr Interval Summary Free Text/Dictation Patient stated he has less pain today, had bowel movement, refused PT due to pain. Exam/Review of Systems Vital Signs Vitals Vital Signs Date Time Temp Pulse Resp B/P Pulse Ox O2 Delivery O2 Flow Rate FiO2 06/27/16 08:17 98.0 100 20 130/80 94 06/25/16 08:00 Nasal Cannula 2.0 06/23/16 16:45 80 Intake and Output 06/26/16 06/26/16 06/27/16 15:00 23:00 07:00 Intake Total 350 ml 1150 ml 840 ml Output Total 1150 ml Balance 350 ml 0 ml 840 ml Exam PHYSICAL EXAMINATION: GENERAL: Well-developed male in no acute distress HEENT: Conjunctivae and lids normal. Nose and ears normal externally. NECK: The patient has C-spine collar on. CHEST: Clear bilaterally CARDIOVASCULAR: S1, S2 normal. No murmur. ABDOMEN: Soft, obese, nontender. EXTREMITIES: Bilateral lymphedema of both lower extremities. Status post left above ankle amputation. NEUROLOGIC: Alert and oriented 3 Results Result Diagram: 06/27/16 0440 06/27/16 0440 Results 24 hrs Laboratory Tests Test 06/27/16 04:40 06/27/16 08:05 Anion Gap 13 Basophils # 0.0 Basophils % 0.4 Blood Urea Nitrogen 9 Calcium Level 8.8 Carbon Dioxide Level 32 H Chloride Level 96 L Creatinine 0.68 Eosinophils # 0.2 Eosinophils % 2.1 Glucose Level 115 Hematocrit 38.6 L Hemoglobin 12.8 L Lymphocytes # 2.5 Lymphocytes % 23.8 Mean Corpuscular Hemoglobin 29.3 Mean Corpuscular Hemoglobin Concent 33.2 Mean Corpuscular Volume 88.3 Mean Platelet Volume 9.9 Monocytes # 1.1 H Monocytes % 10.2 Neutrophils # 6.6 Neutrophils % 63.2 Nucleated Red Blood Cells # 0.0 Nucleated Red Blood Cells % 0.0 Platelet Count 265 Potassium Level 4.0 Red Blood Count 4.37 L Red Cell Distribution Width 13.2 Sodium Level 137 White Blood Count 10.4 Bedside Glucose 130 Medications Medications Current Medications Dextrose/Lactated Ringer's (D5-Lr) 1,000 ml @ 70 mls/hr [id number] IV Last administered on 06/27/16 18:26; Admin Dose 70 MLS/HR; Start 06/23/16 at 14:30 Acetaminophen/ Hydrocodone Bitart ([place] (10/325)) 1 tab Q4H PRN PO PAIN Last administered on 06/27/16 15:26; Admin Dose 1 TAB; Start 06/23/16 at 14:30 Ondansetron HCl (Zofran Inj) 4 mg Q6H PRN IV NAUSEA AND/OR VOMITING; Start 06/23 at 14:30 Atorvastatin Calcium (Lipitor) 10 mg QHS PO Last administered on 06/26/16 20:43 ; Admin Dose 10 MG; Start 06/24/16 at 21:00 Bisacodyl (Dulcolax) 5 mg DAILY PO ; Start 06/24/16 at 09:00 Docusate Sodium (Colace) 100 mg BID PO Last administered on 06/25/16 21:21; Admin Dose 100 MG; Start 06/24/16 at 09:00 Enalapril Maleate (Vasotec) 10 mg DAILY PO Last administered on 06/27/16 09:59 ; Admin Dose 10 MG; Start 06/24/16 at 09:00 Senna 1 tab 1 tab BID PO Last administered on 06/25/16 21:21; Admin Dose 1 TAB ; Start 06/24/16 at 09:00 Acetaminophen (Ofirmev 1000mg/ 100ml Iv) 100 ml @ 400 mls/hr Q6H PRN IVPB PAIN LEVEL 1-3 OR FEVER; Start 06/24/16 at 00:00 Lorazepam (Ativan) 1 mg Q6H PRN PO ANXIETY Last administered on 06/25/16 14:19 ; Admin Dose 1 MG; Start 06/24/16 at 05:30 Cyclobenzaprine HCl (Flexeril) 10 mg Q8 PRN PO spasm Last administered on 09:59; Admin Dose 10 MG; Start 06/24/16 at 16:30 Hydromorphone HCl (Dilaudid) 1 mg Q2H PRN IV PAIN Last administered on 20:43; Admin Dose 1 MG; Start 06/26/16 at 17:00 MICHELLE KOROMA Jun 27, 2016 18:32
[2016-06-27] MEDS: ATORVASTATIN 10 MG TAB PO SCH (19:46)
[2016-06-27 20:12] VITALS: BP 117/69; RESP 20
[2016-06-28] MEDS: HYDROCODONE/APAP (10/325) TAB PO PRN ×4 (04:00→20:06)
[2016-06-28 05:42] LABS: ADD SCAN DIFF NO
[2016-06-28 05:53] LABS: BASOPHILS % 0.3 % (0.0-2.0); EOSINOPHILS # 0.2 10^3/ul (0.0-0.5); EOSINOPHILS % 3.1 % (0.0-7.0); HEMATOCRIT 36.7 % (42.0-52.0); LYMPHOCYTES # 1.7 10^3/ul (0.8-2.9); LYMPHOCYTES % 23.1 % (15.0-51.0); MEAN CORPUSCULAR HEMOGLOBIN 28.8 pg (29.0-33.0); MEAN CORPUSCULAR HGB CONC 32.7 g/dl (32.0-37.0); MEAN CORPUSCULAR VOLUME 88.2 fl (82.0-101.0); MONOCYTE # 0.7 10^3/ul (0.3-0.9); MONOCYTES % 9.7 % (0.0-11.0); NEUTROPHIL # 4.8 10^3/ul (1.6-7.5); NEUTROPHILS % 63.5 % (39.0-77.0); PLATELET COUNT 239 10^3/UL (140-415); RED BLOOD COUNT 4.16 10^6/ul (4.70-6.10); RED CELL DISTRIBUTION WIDTH 13.2 % (11.5-14.5); WHITE BLOOD COUNT 7.5 10^3/ul (4.8-10.8)
[2016-06-28 06:23] LABS: POTASSIUM 3.8 mmol/L (3.5-5.1)
[2016-06-28 06:26] LABS: CREATININE 0.63 mg/dl (0.61-1.24)
[2016-06-28 06:27] LABS: CALCIUM 8.3 mg/dl (8.4-10.2)
[2016-06-28 08:24] VITALS: BP 128/75; RESP 18
[2016-06-28] MEDS: DEXTROSE 5%-LR 1,000 ML IV SCH ×2 (08:54→23:12)
[2016-06-28] MEDS: SENNA TAB PO SCH ×2 (09:00→21:00)
[2016-06-28] MEDS: BISACODYL (EC) 5 MG TAB PO SCH (09:00)
[2016-06-28] MEDS: DOCUSATE SODIUM 100 MG CAP PO SCH ×2 (09:00→21:00)
[2016-06-28] MEDS: ENALAPRIL 10 MG TAB PO SCH (09:05)
[2016-06-28] MEDS: CYCLOBENZAPRINE 10 MG TAB PO PRN ×2 (12:05→20:06)
[2016-06-28] MEDS: HYDROmorphONE 1 MG/ML SYG IV PRN ×2 (16:14→23:50)
--- NOTE | 2016-06-28 16:37 | OPR ---
DATE OF OPERATION: 06/28/2016 PREOPERATIVE DIAGNOSES: 1. Cervical stenosis. 2. Cervical radiculopathy. 3. Cervical myelopathy with cervical quadriparesis. POSTOPERATIVE DIAGNOSES: 1. Cervical stenosis. 2. Cervical radiculopathy. 3. Cervical myelopathy with cervical quadriparesis. PROCEDURE: 1. C6-C7 posterolateral in situ fusion; CPT 30353. 2. C6 bilateral laminectomy, medial facetotomy, and foraminotomy; CPT 96327. 3. C7 bilateral laminectomy, medial facetotomy, and foraminotomy, CPT 82937. SURGEON: Rafael Castellano MD TELECOMMUNICATION LINES REPAIRER: VIKASH Corey COMPLICATIONS THROUGHOUT OPERATION: None. ANESTHESIA: General endotracheal. ESTIMATED BLOOD LOSS: Less than 100. COUNTS: Needle counts and sponge counts were correct. SPECIMENS: Multiple fragments of the lamina was sent to pathology. INDICATIONS FOR THE OPERATION: Patient is a well-known patient and has been seen in my office on multiple occasions, originally at the request of the primary care physician, Dr. Doris Salmeron. Patient has cervical and thoracic and lumbar stenosis. We will proceed with decompressive laminectomy of the cervical spine first. Then, we will address the thoracic and lumbar spine later phase. Neurologically, patient is alert, awake, oriented. The patient agreed to proceed with the operation and signed the consent. PROCEDURE IN DETAIL: The patient was placed in supine position. Adequate general endotracheal anesthesia was obtained. Patient was turned prone on vertical bolsters. Back and neck was shaved, prepped and draped in normal sterile fashion, was infiltrated with lidocaine and epinephrine solution. Midline incision was made with a #10 blade, was carried to the lamina of C6-C7. Deep retractors were placed, and lateral masses were identified at C6-C7 level. Laminectomy first started with drilling the lamina with the high-speed Midas Sherman drill. All the bone was harvested in the Luk[place] trap. Laminectomy was done with #2, #3, and #4 Kerrison punch. Medial facetotomy and foraminotomy was done. Spinal monitoring showed improvement of signal. Following this, the area was irrigated with bacitracin saline solution. The bone that was harvested during laminectomy was packed and was placed as an onlay graft on the lateral mass of C6 and C7 after the lateral masses were completely decorticated. The closure of the wound at this time was started with placement of medium size Hemovac drain exiting from skin through a separate stab incision and was secured to the skin with sutures. Closure of the wound done with #1 Vicryl for cervical fascia, 2-0 and 3-0 Vicryl for subcutaneous tissue and dermis with Steri-Strips for the skin. Patient tolerated the procedure well, was taken to postanesthesia recovery in stable condition. Dictated By: RAFAEL SANDY/MARILYN Conf#: [id number] DID#: [id number] MTDD
--- NOTE | 2016-06-28 17:02 | PN ---
Date/Time of Note Date/Time of Note DATE: 06/28/16 TIME: 17:01 Assessment/Plan VTE Prophylaxis VTE Prophylaxis Intervention: SCD's Lines/Catheters [facility] [place] Urinary Cath still in place: No Assessment/Plan Chief Complaint/Hosp Course Assessment/Plan 1. Cervical myelopathy. Status post cervical 6-7 laminectomy. Continue to follow-up surgery recommendations. 2. Coronary artery disease. 3. Congenital lymphedema. 4. Hypertension. 5. Depression. 6. Schizoaffective disorder. 7. Hypotestosteronism. 8. Dyslipidemia. Continue Lipitor Patient did not qualify for acute rehab. [facility] facility placement pending. Further recommendations based on clinical course. Plan of care discussed with Dr. Olivera. Problems: Subjective 24 Hr Interval Summary Free Text/Dictation Patient refused to get out of bed with physical therapy stated that she is feeling tired, pain is better controlled with Flexeril, patient denies any nausea vomiting denies fever. Exam/Review of Systems Vital Signs Vitals Vital Signs Date Time Temp Pulse Resp B/P Pulse Ox O2 Delivery O2 Flow Rate FiO2 06/28/16 08:24 98.3 79 18 128/75 95 06/25/16 08:00 Nasal Cannula 2.0 Intake and Output 06/27/16 06/27/16 06/28/16 15:00 23:00 07:00 Intake Total 1400 ml 1660 ml Output Total 1300 ml 1800 ml Balance 100 ml -140 ml Exam PHYSICAL EXAMINATION: GENERAL: Well-developed male in no acute distress HEENT: Conjunctivae and lids normal. Nose and ears normal externally. NECK: The patient has C-spine collar on. CHEST: Clear bilaterally CARDIOVASCULAR: S1, S2 normal. No murmur. ABDOMEN: Soft, obese, nontender. EXTREMITIES: Bilateral lymphedema of both lower extremities. Status post left above ankle amputation. NEUROLOGIC: Alert and oriented 3 Results Result Diagram: 06/28/165 06/28/16444 Results 24 hrs Laboratory Tests Test 06/28/16 04:45 Anion Gap 14 Basophils # 0.0 Basophils % 0.3 Blood Urea Nitrogen 9 Calcium Level 8.3 L Carbon Dioxide Level 27 Chloride Level 98 Creatinine 0.63 Eosinophils # 0.2 Eosinophils % 3.1 Glucose Level 139 Hematocrit 36.7 L Hemoglobin 12.0 L Lymphocytes # 1.7 Lymphocytes % 23.1 Mean Corpuscular Hemoglobin 28.8 L Mean Corpuscular Hemoglobin Concent 32.7 Mean Corpuscular Volume 88.2 Mean Platelet Volume 10.0 Monocytes # 0.7 Monocytes % 9.7 Neutrophils # 4.8 Neutrophils % 63.5 Nucleated Red Blood Cells # 0.0 Nucleated Red Blood Cells % 0.0 Platelet Count 239 Potassium Level 3.8 Red Blood Count 4.16 L Red Cell Distribution Width 13.2 Sodium Level 135 White Blood Count 7.5 # Medications Medications Current Medications Dextrose/Lactated Ringer's (D5-Lr) 1,000 ml @ 70 mls/hr [id number] IV Last administered on 06/27/16 18:26; Admin Dose 70 MLS/HR; Start 06/23/16 at 14:30 Acetaminophen/ Hydrocodone Bitart ([place] (10/325)) 1 tab Q4H PRN PO PAIN Last administered on 06/28/16 13:37; Admin Dose 1 TAB; Start 06/23/16 at 14:30 Ondansetron HCl (Zofran Inj) 4 mg Q6H PRN IV NAUSEA AND/OR VOMITING; Start 06/23 at 14:30 Atorvastatin Calcium (Lipitor) 10 mg QHS PO Last administered on 06/27/16 19:46 ; Admin Dose 10 MG; Start 06/24/16 at 21:00 Bisacodyl (Dulcolax) 5 mg DAILY PO ; Start 06/24/16 at 09:00 Docusate Sodium (Colace) 100 mg BID PO Last administered on 06/25/16 21:21; Admin Dose 100 MG; Start 06/24/16 at 09:00 Enalapril Maleate (Vasotec) 10 mg DAILY PO Last administered on 06/28/16 09:05 ; Admin Dose 10 MG; Start 06/24/16 at 09:00 Senna 1 tab 1 tab BID PO Last administered on 06/25/16 21:21; Admin Dose 1 TAB ; Start 06/24/16 at 09:00 Acetaminophen (Ofirmev 1000mg/ 100ml Iv) 100 ml @ 400 mls/hr Q6H PRN IVPB PAIN LEVEL 1-3 OR FEVER; Start 06/24/16 at 00:00 Lorazepam (Ativan) 1 mg Q6H PRN PO ANXIETY Last administered on 06/25/16 14:19 ; Admin Dose 1 MG; Start 06/24/16 at 05:30 Cyclobenzaprine HCl (Flexeril) 10 mg Q8 PRN PO spasm Last administered on 12:05; Admin Dose 10 MG; Start 06/24/16 at 16:30 Hydromorphone HCl (Dilaudid) 1 mg Q2H PRN IV PAIN Last administered on 16:14; Admin Dose 1 MG; Start 06/26/16 at 17:00 MICHELLE KOROMA Jun 28, 2016 17:02
--- NOTE | 2016-06-28 17:35 | CONS ---
Date/Time of Note Date/Time of Note DATE: 06/28/16 TIME: 17:31 Assessment/Plan Assessment/Plan Additional Assessment/Plan seen/examined awake/alert/follows/moves all sp cervical lami with in situ fusion cont pt/ot rehab eval rehab eval if not accepted dc planning snf with rehab Consultation Date/Type/Reason Admit Date/Time Jun 23, 2016 at 09:46 Exam/Review of Systems Vital Signs Vitals Vital Signs Date Time Temp Pulse Resp B/P Pulse Ox O2 Delivery O2 Flow Rate FiO2 06/28/16 08:24 98.3 79 18 128/75 95 06/25/16 08:00 Nasal Cannula 2.0 Intake and Output 06/27/16 06/27/16 06/28/16 15:00 23:00 07:00 Intake Total 1400 ml 1660 ml Output Total 1300 ml 1800 ml Balance 100 ml -140 ml Results Result Diagram: 06/28/16 0445 06/28/16 0445 Results 24 hrs Laboratory Tests Test 06/28/16 04:45 Anion Gap 14 Basophils # 0.0 Basophils % 0.3 Blood Urea Nitrogen 9 Calcium Level 8.3 L Carbon Dioxide Level 27 Chloride Level 98 Creatinine 0.63 Eosinophils # 0.2 Eosinophils % 3.1 Glucose Level 139 Hematocrit 36.7 L Hemoglobin 12.0 L Lymphocytes # 1.7 Lymphocytes % 23.1 Mean Corpuscular Hemoglobin 28.8 L Mean Corpuscular Hemoglobin Concent 32.7 Mean Corpuscular Volume 88.2 Mean Platelet Volume 10.0 Monocytes # 0.7 Monocytes % 9.7 Neutrophils # 4.8 Neutrophils % 63.5 Nucleated Red Blood Cells # 0.0 Nucleated Red Blood Cells % 0.0 Platelet Count 239 Potassium Level 3.8 Red Blood Count 4.16 L Red Cell Distribution Width 13.2 Sodium Level 135 White Blood Count 7.5 # Medications Medications Current Medications Dextrose/Lactated Ringer's (D5-Lr) 1,000 ml @ 70 mls/hr [id number] IV Last administered on 06/27/16 18:26; Admin Dose 70 MLS/HR; Start 06/23/16 at 14:30 Acetaminophen/ Hydrocodone Bitart ([place] (10/325)) 1 tab Q4H PRN PO PAIN Last administered on 06/28/16 13:37; Admin Dose 1 TAB; Start 06/23/16 at 14:30 Ondansetron HCl (Zofran Inj) 4 mg Q6H PRN IV NAUSEA AND/OR VOMITING; Start 06/23 at 14:30 Atorvastatin Calcium (Lipitor) 10 mg QHS PO Last administered on 06/27/16 19:46 ; Admin Dose 10 MG; Start 06/24/16 at 21:00 Bisacodyl (Dulcolax) 5 mg DAILY PO ; Start 06/24/16 at 09:00 Docusate Sodium (Colace) 100 mg BID PO Last administered on 06/25/16 21:21; Admin Dose 100 MG; Start 06/24/16 at 09:00 Enalapril Maleate (Vasotec) 10 mg DAILY PO Last administered on 06/28/16 09:05 ; Admin Dose 10 MG; Start 06/24/16 at 09:00 Senna 1 tab 1 tab BID PO Last administered on 06/25/16 21:21; Admin Dose 1 TAB ; Start 06/24/16 at 09:00 Acetaminophen (Ofirmev 1000mg/ 100ml Iv) 100 ml @ 400 mls/hr Q6H PRN IVPB PAIN LEVEL 1-3 OR FEVER; Start 06/24/16 at 00:00 Lorazepam (Ativan) 1 mg Q6H PRN PO ANXIETY Last administered on 06/25/16 14:19 ; Admin Dose 1 MG; Start 06/24/16 at 05:30 Cyclobenzaprine HCl (Flexeril) 10 mg Q8 PRN PO spasm Last administered on 12:05; Admin Dose 10 MG; Start 06/24/16 at 16:30 Hydromorphone HCl (Dilaudid) 1 mg Q2H PRN IV PAIN Last administered on 16:14; Admin Dose 1 MG; Start 06/26/16 at 17:00 SHERLY ROGERS PA-C Jun 28, 2016 17:35
[2016-06-28] MEDS: ATORVASTATIN 10 MG TAB PO SCH (20:06)
[2016-06-28 20:56] VITALS: BP 139/78; RESP 18
[2016-06-29] MEDS: LORAZEPAM 1 MG TAB PO PRN ×2 (01:42→10:04)
[2016-06-29] MEDS: HYDROCODONE/APAP (10/325) TAB PO PRN ×2 (04:19→18:43)
[2016-06-29] MEDS: CYCLOBENZAPRINE 10 MG TAB PO PRN (04:19)
[2016-06-29 05:23] LABS: ADD SCAN DIFF NO
[2016-06-29 05:37] LABS: BASOPHILS % 0.2 % (0.0-2.0); EOSINOPHILS # 0.2 10^3/ul (0.0-0.5); EOSINOPHILS % 1.8 % (0.0-7.0); HEMATOCRIT 35.6 % (42.0-52.0); HEMOGLOBIN 12.1 g/dl (14.0-18.0); LYMPHOCYTES # 1.4 10^3/ul (0.8-2.9); LYMPHOCYTES % 15.5 % (15.0-51.0); MEAN CORPUSCULAR HEMOGLOBIN 29.7 pg (29.0-33.0); MEAN CORPUSCULAR VOLUME 87.3 fl (82.0-101.0); MEAN PLATELET VOLUME 9.8 fl (7.4-10.4); MONOCYTE # 0.8 10^3/ul (0.3-0.9); MONOCYTES % 8.6 % (0.0-11.0); NEUTROPHIL # 6.8 10^3/ul (1.6-7.5); NEUTROPHILS % 73.7 % (39.0-77.0); PLATELET COUNT 280 10^3/UL (140-415); RED BLOOD COUNT 4.08 10^6/ul (4.70-6.10); WHITE BLOOD COUNT 9.2 10^3/ul (4.8-10.8)
[2016-06-29 05:39] LABS: CREATININE 0.85 mg/dl (0.61-1.24)
[2016-06-29 05:40] LABS: CALCIUM 8.2 mg/dl (8.4-10.2)
[2016-06-29 08:01] VITALS: BP 124/82; RESP 20
[2016-06-29] MEDS: DOCUSATE SODIUM 100 MG CAP PO SCH ×2 (09:00→21:00)
[2016-06-29] MEDS: SENNA TAB PO SCH ×2 (09:00→21:00)
[2016-06-29] MEDS: BISACODYL (EC) 5 MG TAB PO SCH (09:00)
[2016-06-29] MEDS: ENALAPRIL 10 MG TAB PO SCH (09:00)
[2016-06-29] MEDS: HYDROmorphONE 1 MG/ML SYG IV PRN ×4 (10:03→23:26)
[2016-06-29] MEDS: DEXTROSE 5%-LR 1,000 ML IV SCH (13:30)
--- NOTE | 2016-06-29 16:06 | CONS ---
Date/Time of Note Date/Time of Note DATE: 06/29/16 TIME: 16:05 Assessment/Plan Assessment/Plan Additional Assessment/Plan seen/examined awake/alert/follows/sensation intact cervical decompression dc planning home with pt/ot fu 1 week. Consultation Date/Type/Reason Admit Date/Time Jun 23, 2016 at 09:46 Exam/Review of Systems Vital Signs Vitals Vital Signs Date Time Temp Pulse Resp B/P Pulse Ox O2 Delivery O2 Flow Rate FiO2 06/29/16 08:01 98.0 80 20 124/82 100 06/25/16 08:00 Nasal Cannula 2.0 Intake and Output 06/28/16 06/28/16 06/29/16 15:00 23:00 07:00 Intake Total 700 ml 2640 ml Output Total 2200 ml 1680 ml Balance -1500 ml 960 ml Results Result Diagram: 06/29/16 0435 06/29/16 0435 Results 24 hrs Laboratory Tests Test 06/29/16 04:35 Anion Gap 13 Basophils # 0.0 Basophils % 0.2 Blood Urea Nitrogen 11 Calcium Level 8.2 L Carbon Dioxide Level 29 Chloride Level 96 L Creatinine 0.85 Eosinophils # 0.2 Eosinophils % 1.8 Glucose Level 112 Hematocrit 35.6 L Hemoglobin 12.1 L Lymphocytes # 1.4 Lymphocytes % 15.5 Mean Corpuscular Hemoglobin 29.7 Mean Corpuscular Hemoglobin Concent 34.0 Mean Corpuscular Volume 87.3 Mean Platelet Volume 9.8 Monocytes # 0.8 Monocytes % 8.6 Neutrophils # 6.8 Neutrophils % 73.7 Nucleated Red Blood Cells # 0.0 Nucleated Red Blood Cells % 0.0 Platelet Count 280 Potassium Level 4.0 Red Blood Count 4.08 L Red Cell Distribution Width 13.0 Sodium Level 134 L White Blood Count 9.2 # Medications Medications Current Medications Dextrose/Lactated Ringer's (D5-Lr) 1,000 ml @ 70 mls/hr [id number] IV Last administered on 06/27/16 18:26; Admin Dose 70 MLS/HR; Start 06/23/16 at 14:30 Acetaminophen/ Hydrocodone Bitart ([place] (10/325)) 1 tab Q4H PRN PO PAIN Last administered on 06/29/16 04:19; Admin Dose 1 TAB; Start 06/23/16 at 14:30 Ondansetron HCl (Zofran Inj) 4 mg Q6H PRN IV NAUSEA AND/OR VOMITING; Start 06/23 at 14:30 Atorvastatin Calcium (Lipitor) 10 mg QHS PO Last administered on 06/28/16 20:06 ; Admin Dose 10 MG; Start 06/24/16 at 21:00 Bisacodyl (Dulcolax) 5 mg DAILY PO ; Start 06/24/16 at 09:00 Docusate Sodium (Colace) 100 mg BID PO Last administered on 06/25/16 21:21; Admin Dose 100 MG; Start 06/24/16 at 09:00 Enalapril Maleate (Vasotec) 10 mg DAILY PO Last administered on 06/28/16 09:05 ; Admin Dose 10 MG; Start 06/24/16 at 09:00 Senna 1 tab 1 tab BID PO Last administered on 06/25/16 21:21; Admin Dose 1 TAB ; Start 06/24/16 at 09:00 Acetaminophen (Ofirmev 1000mg/ 100ml Iv) 100 ml @ 400 mls/hr Q6H PRN IVPB PAIN LEVEL 1-3 OR FEVER; Start 06/24/16 at 00:00 Lorazepam (Ativan) 1 mg Q6H PRN PO ANXIETY Last administered on 06/29/16 10:04 ; Admin Dose 1 MG; Start 06/24/16 at 05:30 Cyclobenzaprine HCl (Flexeril) 10 mg Q8 PRN PO spasm Last administered on 04:19; Admin Dose 10 MG; Start 06/24/16 at 16:30 Hydromorphone HCl (Dilaudid) 1 mg Q2H PRN IV PAIN Last administered on 15:11; Admin Dose 1 MG; Start 06/26/16 at 17:00 SHERLY ROGERS PA-C Jun 29, 2016 16:06
--- NOTE | 2016-06-29 16:41 | PN ---
Date/Time of Note Date/Time of Note DATE: 06/29/16 TIME: 16:40 Assessment/Plan VTE Prophylaxis VTE Prophylaxis Intervention: other Lines/Catheters IV Catheter Type (from [facility]): Saline Lock Urinary Cath still in place: No Assessment/Plan Assessment/Plan 1. Cervical myelopathy. Status post cervical 6-7 laminectomy. Continue to follow-up surgery recommendations. 2. Coronary artery disease. 3. Congenital lymphedema. 4. Hypertension. 5. Depression. 6. Schizoaffective disorder. 7. Hypotestosteronism. 8. Dyslipidemia. Continue Lipitor Patient did not qualify for acute rehab. assisted facility placement pending. Further recommendations based on clinical course. Plan of care discussed with Dr. Olivera. Subjective 24 Hr Interval Summary Eyes: no complaints ENT: no complaints Respiratory: no complaints Cardiovascular: no complaints Gastrointestinal: no complaints Genitourinary: no complaints Musculoskeletal: no complaints Skin: no complaints Neurologic: no complaints Exam/Review of Systems Vital Signs Vitals Vital Signs Date Time Temp Pulse Resp B/P Pulse Ox O2 Delivery O2 Flow Rate FiO2 06/29/16 08:01 98.0 80 20 124/82 100 06/25/16 08:00 Nasal Cannula 2.0 Intake and Output 06/28/16 06/28/16 06/29/16 15:00 23:00 07:00 Intake Total 700 ml 2640 ml Output Total 2200 ml 1680 ml Balance -1500 ml 960 ml Exam Constitutional: alert Psych: nl mood/affect Eyes: nl sclera ENMT: nl external ears & nose Neck: non-tender Respiratory: clear to auscultation Cardiovascular: nl pulses Gastrointestinal: non-tender, soft Musculoskeletal: nl extremities to inspection Neurological: nl mental status, nl speech Lymph: nontender Results Result Diagram: 06/29/16 0435 06/29/165 Results 24 hrs Laboratory Tests Test 06/29/16 04:35 Anion Gap 13 Basophils # 0.0 Basophils % 0.2 Blood Urea Nitrogen 11 Calcium Level 8.2 L Carbon Dioxide Level 29 Chloride Level 96 L Creatinine 0.85 Eosinophils # 0.2 Eosinophils % 1.8 Glucose Level 112 Hematocrit 35.6 L Hemoglobin 12.1 L Lymphocytes # 1.4 Lymphocytes % 15.5 Mean Corpuscular Hemoglobin 29.7 Mean Corpuscular Hemoglobin Concent 34.0 Mean Corpuscular Volume 87.3 Mean Platelet Volume 9.8 Monocytes # 0.8 Monocytes % 8.6 Neutrophils # 6.8 Neutrophils % 73.7 Nucleated Red Blood Cells # 0.0 Nucleated Red Blood Cells % 0.0 Platelet Count 280 Potassium Level 4.0 Red Blood Count 4.08 L Red Cell Distribution Width 13.0 Sodium Level 134 L White Blood Count 9.2 # Medications Medications Current Medications Dextrose/Lactated Ringer's (D5-Lr) 1,000 ml @ 70 mls/hr [id number] IV Last administered on 06/27/16 18:26; Admin Dose 70 MLS/HR; Start 06/23/16 at 14:30 Acetaminophen/ Hydrocodone Bitart ([place] (10/325)) 1 tab Q4H PRN PO PAIN Last administered on 06/29/16 04:19; Admin Dose 1 TAB; Start 06/23/16 at 14:30 Ondansetron HCl (Zofran Inj) 4 mg Q6H PRN IV NAUSEA AND/OR VOMITING; Start 06/23 at 14:30 Atorvastatin Calcium (Lipitor) 10 mg QHS PO Last administered on 06/28/16 20:06 ; Admin Dose 10 MG; Start 06/24/16 at 21:00 Bisacodyl (Dulcolax) 5 mg DAILY PO ; Start 06/24/16 at 09:00 Docusate Sodium (Colace) 100 mg BID PO Last administered on 06/25/16 21:21; Admin Dose 100 MG; Start 06/24/16 at 09:00 Enalapril Maleate (Vasotec) 10 mg DAILY PO Last administered on 06/28/16 09:05 ; Admin Dose 10 MG; Start 06/24/16 at 09:00 Senna 1 tab 1 tab BID PO Last administered on 06/25/16 21:21; Admin Dose 1 TAB ; Start 06/24/16 at 09:00 Acetaminophen (Ofirmev 1000mg/ 100ml Iv) 100 ml @ 400 mls/hr Q6H PRN IVPB PAIN LEVEL 1-3 OR FEVER; Start 06/24/16 at 00:00 Lorazepam (Ativan) 1 mg Q6H PRN PO ANXIETY Last administered on 06/29/16 10:04 ; Admin Dose 1 MG; Start 06/24/16 at 05:30 Cyclobenzaprine HCl (Flexeril) 10 mg Q8 PRN PO spasm Last administered on 04:19; Admin Dose 10 MG; Start 06/24/16 at 16:30 Hydromorphone HCl (Dilaudid) 1 mg Q2H PRN IV PAIN Last administered on 15:11; Admin Dose 1 MG; Start 06/26/16 at 17:00 MAME SINGH Jun 29, 2016 16:41
[2016-06-29 19:53] VITALS: BP 149/84; RESP 20
[2016-06-29] MEDS: ATORVASTATIN 10 MG TAB PO SCH (21:00)
[2016-06-30] MEDS: HYDROmorphONE 1 MG/ML SYG IV PRN ×6 (03:17→16:56)
[2016-06-30] MEDS: DEXTROSE 5%-LR 1,000 ML IV SCH ×2 (03:48→17:19)
[2016-06-30 05:48] LABS: ADD SCAN DIFF NO
[2016-06-30 05:55] LABS: BASOPHILS % 0.3 % (0.0-2.0); EOSINOPHILS # 0.3 10^3/ul (0.0-0.5); EOSINOPHILS % 2.9 % (0.0-7.0); HEMATOCRIT 36.4 % (42.0-52.0); HEMOGLOBIN 12.1 g/dl (14.0-18.0); LYMPHOCYTES # 1.6 10^3/ul (0.8-2.9); LYMPHOCYTES % 18.2 % (15.0-51.0); MEAN CORPUSCULAR HEMOGLOBIN 29.2 pg (29.0-33.0); MEAN CORPUSCULAR HGB CONC 33.2 g/dl (32.0-37.0); MEAN CORPUSCULAR VOLUME 87.9 fl (82.0-101.0); MEAN PLATELET VOLUME 9.6 fl (7.4-10.4); MONOCYTE # 0.8 10^3/ul (0.3-0.9); MONOCYTES % 9.7 % (0.0-11.0); NEUTROPHILS % 68.7 % (39.0-77.0); PLATELET COUNT 283 10^3/UL (140-415); RED BLOOD COUNT 4.14 10^6/ul (4.70-6.10); RED CELL DISTRIBUTION WIDTH 13.1 % (11.5-14.5); WHITE BLOOD COUNT 8.7 10^3/ul (4.8-10.8)
[2016-06-30 06:10] LABS: POTASSIUM 3.7 mmol/L (3.5-5.1)
[2016-06-30 06:12] LABS: CREATININE 0.77 mg/dl (0.61-1.24)
[2016-06-30 06:13] LABS: CALCIUM 8.6 mg/dl (8.4-10.2)
[2016-06-30 07:00] VITALS: BP 138/84; RESP 20
[2016-06-30] MEDS: LORAZEPAM 1 MG TAB PO PRN (08:25)
[2016-06-30] MEDS: DOCUSATE SODIUM 100 MG CAP PO SCH ×2 (08:25→20:42)
[2016-06-30] MEDS: ENALAPRIL 10 MG TAB PO SCH (08:25)
[2016-06-30] MEDS: SENNA TAB PO SCH ×2 (08:25→20:41)
[2016-06-30] MEDS: BISACODYL (EC) 5 MG TAB PO SCH (08:25)
[2016-06-30] MEDS: HYDROCODONE/APAP (10/325) TAB PO PRN ×3 (11:20→22:39)
--- NOTE | 2016-06-30 15:22 | CONS ---
Date/Time of Note Date/Time of Note DATE: 06/30/16 TIME: 15:21 Assessment/Plan Assessment/Plan Additional Assessment/Plan seen/examined awake/alert/follows cervical decompression doing better may leave hosp fu office 1 week. Consultation Date/Type/Reason Admit Date/Time Jun 23, 2016 at 09:46 Exam/Review of Systems Vital Signs Vitals Vital Signs Date Time Temp Pulse Resp B/P Pulse Ox O2 Delivery O2 Flow Rate FiO2 06/30/16 07:00 98.7 101 20 138/84 96 Intake and Output 06/29/16 06/29/16 06/30/16 15:00 23:00 07:00 Intake Total 1660 ml 300 ml Output Total 1000 ml 400 ml Balance 660 ml -100 ml Results Result Diagram: 06/30/16 0425 06/30/16 0425 Results 24 hrs Laboratory Tests Test 06/30/16 04:25 Anion Gap 13 Basophils # 0.0 Basophils % 0.3 Blood Urea Nitrogen 12 Calcium Level 8.6 Carbon Dioxide Level 31 Chloride Level 97 Creatinine 0.77 Eosinophils # 0.3 Eosinophils % 2.9 Glucose Level 94 Hematocrit 36.4 L Hemoglobin 12.1 L Lymphocytes # 1.6 Lymphocytes % 18.2 Mean Corpuscular Hemoglobin 29.2 Mean Corpuscular Hemoglobin Concent 33.2 Mean Corpuscular Volume 87.9 Mean Platelet Volume 9.6 Monocytes # 0.8 Monocytes % 9.7 Neutrophils # 6.0 Neutrophils % 68.7 Nucleated Red Blood Cells # 0.0 Nucleated Red Blood Cells % 0.0 Platelet Count 283 Potassium Level 3.7 Red Blood Count 4.14 L Red Cell Distribution Width 13.1 Sodium Level 137 White Blood Count 8.7 Medications Medications Current Medications Dextrose/Lactated Ringer's (D5-Lr) 1,000 ml @ 70 mls/hr [id number] IV Last administered on 06/27/16 18:26; Admin Dose 70 MLS/HR; Start 06/23/16 at 14:30 Acetaminophen/ Hydrocodone Bitart ([place] (10/325)) 1 tab Q4H PRN PO PAIN Last administered on 06/30/16 11:20; Admin Dose 1 TAB; Start 06/23/16 at 14:30 Ondansetron HCl (Zofran Inj) 4 mg Q6H PRN IV NAUSEA AND/OR VOMITING; Start 06/23 at 14:30 Atorvastatin Calcium (Lipitor) 10 mg QHS PO Last administered on 06/29/16 21:00 ; Admin Dose 10 MG; Start 06/24/16 at 21:00 Bisacodyl (Dulcolax) 5 mg DAILY PO ; Start 06/24/16 at 09:00 Docusate Sodium (Colace) 100 mg BID PO Last administered on 06/25/16 21:21; Admin Dose 100 MG; Start 06/24/16 at 09:00 Enalapril Maleate (Vasotec) 10 mg DAILY PO Last administered on 06/28/16 09:05 ; Admin Dose 10 MG; Start 06/24/16 at 09:00 Senna 1 tab 1 tab BID PO Last administered on 06/25/16 21:21; Admin Dose 1 TAB ; Start 06/24/16 at 09:00 Acetaminophen (Ofirmev 1000mg/ 100ml Iv) 100 ml @ 400 mls/hr Q6H PRN IVPB PAIN LEVEL 1-3 OR FEVER; Start 06/24/16 at 00:00 Lorazepam (Ativan) 1 mg Q6H PRN PO ANXIETY Last administered on 06/30/16 08:25 ; Admin Dose 1 MG; Start 06/24/16 at 05:30 Cyclobenzaprine HCl (Flexeril) 10 mg Q8 PRN PO spasm Last administered on 04:19; Admin Dose 10 MG; Start 06/24/16 at 16:30 Hydromorphone HCl (Dilaudid) 1 mg Q2H PRN IV PAIN Last administered on 14:58; Admin Dose 1 MG; Start 06/26/16 at 17:00 SHERLY ROGERS PA-C Jun 30, 2016 15:22
[2016-06-30 20:07] VITALS: BP 137/84; RESP 19
[2016-06-30] MEDS: ATORVASTATIN 10 MG TAB PO SCH (20:41)
[2016-06-30 21:19] VITALS: BP 130/72; PULSE 70; RESP 18
--- NOTE | 2016-07-02 21:52 | DS ---
DATE OF ADMISSION: 06/23/2016 DATE OF DISCHARGE: 06/30/2016 FINAL DIAGNOSES: 1. 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 2. Coronary artery disease. 3. Congenital lymphedema. 4. Hypertension. 5. Depression. 6. Schizoaffective disorder. 7. Hypotestosteronism. 8. Dyslipidemia. 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 The patient was evaluated by Dr Nat Castellano for low back pain radiating to both lower extremities, neck pain, and shoulder pain. The patient underwent an MRI of the C spine, thoracic and lumbar spine, and noted to have severe cervica l stenosis at C6-C7 without evidence of cord compression. The patient was brought to the hospital a nd underwent surgery with Dr. Castellano on 06/23/2016. Postoperatively, the patient experienced some pain and transient agitation and patient was admitted for further evaluation and management. HOSPITAL COURSE: The patient was given Dilaudid for pain and Flexeril. The patient was also given IV fluids and postop regimen and antibiotics. The patient was also given some Valium p.r.n. for erickson tation in the immediate postoperative period. Gradually, the patient's condition improved and the p ain was better managed. The patient also complained of constipation and was started on bowel regime n with some resolution of constipation. The patient's condition improved and patient was discharged home with home health services. CONDITION ON DISCHARGE: Hemodynamically stable. ACTIVITY: As patient tolerates. DIET: A 2 g sodium, low fat, low cholesterol diet. MEDICATIONS ON DISCHARGE: 1. Aspirin. 2. Atorvastatin. 3. Dulcolax. 4. Colace. 5. Vasotec. 6. Quinapril. 7. Senna. 8. Temazepam. 9. The patient was given prescriptions for [place] 10/325 mg p.o. q.4h. p.r.n. for pain. FOLLOWUP: The patient was instructed to follow up with Dr. Castellano in postoperative appointment in 1 to 2 weeks. Interdisciplinary plan of care was established for this patient. Plan of care was discussed with Dr Nat Olivares. Dictated By: MICHELLE KOROMA ORDERING BOX OPERATOR for WILIAN OLIVARES MD SR/NTS Conf#: [id number] DID#: [id number] CC: RAFEAL CASTELLANO MD;*EndCC*
== END 2016-06-30 23:00 | disposition home health service (06) | DRG 471 ==
LOC: REC 09:46 → MS1 20:15
PROVIDERS: ADMIT Neurological Surgery; ATTEND Neurological Surgery
PROC: 0RG1071 Fusion of Cervical Vertebral Joint with Autologous Tissue Substitute, Posterior Approach, Posterior Column, Open Approach (ICD-10-PCS; principal; 2016-06-28)
DX: M48.02 Spinal stenosis, cervical region (principal); G82.50 Quadriplegia, unspecified; G95.29 Other cord compression; E66.01 Morbid (severe) obesity due to excess calories; I10 Essential (primary) hypertension; Z99.3 Dependence on wheelchair; Q82.0 Hereditary lymphedema; I25.10 Atherosclerotic heart disease of native coronary artery without angina pectoris; F25.9 Schizoaffective disorder, unspecified; I73.9 Peripheral vascular disease, unspecified; E78.5 Hyperlipidemia, unspecified; R45.1 Restlessness and agitation; E29.1 Testicular hypofunction; F32.9 Major depressive disorder, single episode, unspecified; K59.00 Constipation, unspecified; M54.12 Radiculopathy, cervical region; Z68.39 Body mass index [BMI] 39.0-39.9, adult
CPT/HCPCS: 72040; 72141; 80048; 82962; 85025; 86850; 86900; 86901; 87086; 94002; 97110; 97162; 97530; J0330; J0360; J0690; J1100; J1170; J1200; J1630; J1644; J2250; J2270; J2405; J2710; J3010; J3360; J7121

== ENCOUNTER 2016-11-23 09:52 | Inpatient (IN) | payer OTHER ==
[~2016-11-23] VITALS: Ht 170.2 cm; Wt 113.5 kg
[2016-11-23] VITALS (19 sets, daily range): BP systolic 124–150; BP diastolic 64–81; PULSE 65–88; RESP 16–38; Ht 170.2 cm; Wt 113.5 kg
[~2016-11-23 09:52] MED LIST changes: +ASPI-664 PO; +ATOR10TA65 PO; -CEFAZOLIN 1 GM INJ ONE; +DEXAMETHASONE 4 MG/ML 1 ML INJ ONE; +DOCU-159 PO; +ONDANSETRON 4 MG INJ ONE; +QUIN10TA19 PO; -SUCCINYLCHOLINE CHLORIDE 100 MG/5 ML SYG IV ONE; +TEMA30CA PO
[2016-11-23] MEDS ORDERED: FENTAnyl 50 MCG/ML VIAL ONE (10:21)
[2016-11-23] MEDS ORDERED: MIDAZOLAM 1 MG/ML 2 ML INJ ONE (10:21)
[2016-11-23] MEDS ORDERED: GLYCOPYRROLATE 0.4 MG INJ ONE (10:21)
[2016-11-23] MEDS ORDERED: PROPOFOL 20 ML ONE (10:21)
[2016-11-23] MEDS ORDERED: ROCURONIUM 50 MG INJ ONE (10:21)
[2016-11-23] MEDS ORDERED: NEOSTIGMINE 3 MG/3 ML SYRINGE ONE (10:21)
[2016-11-23] MEDS ORDERED: LIDOCAINE 2% (SDV) 5 ML INJ ONE (10:21)
[2016-11-23] MEDS ORDERED: DIPHENHYDRAMINE 50 MG INJ IV PRN (10:30)
[2016-11-23] MEDS ORDERED: HYDROmorphONE (0.2 MG/ML) 10ML SYG IV PRN ×2 (10:30)
[2016-11-23] MEDS ORDERED: morphine (1 MG/ML) 10ML SYRINGE IV PRN ×3 (10:30)
[2016-11-23] MEDS ORDERED: FENTAnyl 50 MCG/ML VIAL IV PRN ×2 (10:30)
[2016-11-23] MEDS ORDERED: MIDAZOLAM 1 MG/ML 2 ML INJ IV PRN (10:30)
[2016-11-23] MEDS ORDERED: EPHEDrine SULFATE 50 MG/5 ML SYG IV PRN (10:30)
[2016-11-23] MEDS ORDERED: hydrALAzine 20 MG INJ IV PRN (10:30)
[2016-11-23] MEDS ORDERED: MEPERIDINE 25 MG INJ IV PRN (10:30)
[2016-11-23] MEDS ORDERED: OXYCODONE/ACETAMINOPHEN (5/325) TAB PO PRN ×2 (10:30)
[2016-11-23] MEDS ORDERED: ATROPINE 1 MG/10 ML SYRINGE IV PRN (10:30)
[2016-11-23] MEDS ORDERED: LABETALOL HCL 20MG INJ IV PRN (10:30)
[2016-11-23] MEDS ORDERED: ONDANSETRON 4 MG INJ IV PRN ×2 (10:30→13:00)
[2016-11-23] MEDS ORDERED: THROMBIN 5000 UNIT VIAL ONE (10:45)
[2016-11-23] MEDS ORDERED: GELATIN SIZE 100 SPONGE ONE (10:45)
[2016-11-23] MEDS ORDERED: POLYMYXIN/BACITRACIN 1L IRRIG ONE (10:45)
[2016-11-23] MEDS ORDERED: LIDOCAINE 1% (MPF) 30 ML INJ ONE (10:45)
[2016-11-23] MEDS ORDERED: BUPIVACAINE 0.25% (MPF) 30 ML INJ ONE (10:45)
[2016-11-23 12:29] LABS: BASOPHILS % 0.6 % (0.0-2.0); EOSINOPHILS # 0.1 10^3/ul (0.0-0.5); EOSINOPHILS % 1.1 % (0.0-7.0); HEMATOCRIT 39.8 % (42.0-52.0); HEMOGLOBIN 13.6 g/dl (14.0-18.0); LYMPHOCYTES # 1.5 10^3/ul (0.8-2.9); LYMPHOCYTES % 28.1 % (15.0-51.0); MEAN CORPUSCULAR HEMOGLOBIN 28.8 pg (29.0-33.0); MEAN CORPUSCULAR HGB CONC 34.2 g/dl (32.0-37.0); MEAN CORPUSCULAR VOLUME 84.1 fl (82.0-101.0); MEAN PLATELET VOLUME 9.6 fl (7.4-10.4); MONOCYTE # 0.6 10^3/ul (0.3-0.9); MONOCYTES % 10.8 % (0.0-11.0); NEUTROPHIL # 3.1 10^3/ul (1.6-7.5); NEUTROPHILS % 59.2 % (39.0-77.0); PLATELET COUNT 222 10^3/UL (140-415); RED BLOOD COUNT 4.73 10^6/ul (4.70-6.10); RED CELL DISTRIBUTION WIDTH 14.4 % (11.5-14.5); WHITE BLOOD COUNT 5.3 10^3/ul (4.8-10.8)
--- NOTE | 2016-11-23 12:32 | HPN ---
Date/Time of Note Date/Time of Note DATE: 11/23/16 TIME: 12:31 Interval H&P Admission Note Pt. seen H&P reviewed: No system changes SHERLY ROGERS PA-C Nov 23, 2016 12:32
[2016-11-23 12:44] LABS: INR 0.97; PARTIAL THROMBOPLASTIN TIME 26.9 Sec (25.0-35.0); PROTIME 12.9 Sec (12.2-14.2)
[2016-11-23 12:46] LABS: ALBUMIN 4.1 g/dl (3.3-4.9); ALBUMIN/GLOBULIN RATIO 1.24; BILIRUBIN,INDIRECT 0.7 mg/dl (0-1.1); BILIRUBIN,TOTAL 0.7 mg/dl (0.2-1.3); TOTAL PROTEIN 7.4 g/dl (6.1-8.1)
[2016-11-23] MEDS ORDERED: niCARdipine 25 MG in SOD CHLORIDE 0.9% 250 ML IV PRN (13:00)
[2016-11-23 13:05] LABS: CALCIUM 9.2 mg/dl (8.4-10.2); CREATININE 0.83 mg/dl (0.61-1.24)
--- NOTE | 2016-11-23 13:38 | HP ---
DATE OF ADMISSION: 11/23/2016 HISTORY OF PRESENT ILLNESS: The patient is a 61-year-old male who originally was seen in the office for evaluation of gait instability. 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 Conservative management was offered to the patient. The patient has failed outpatient therapy and has failed conservative management. The patient is myelopathic. He has lower extremity paresis. His condition is not getting worse. Surgical intervention was discussed with the patient. The patient has agreed to surgery in the form of T10-T11 laminectomy with possible C2 fusion. PAST MEDICAL HISTORY: He has a history of severe cervical stenosis with cord compression, history of thoracic spine stenosis, as well as lumbar stenosis. SURGICAL HISTORY: Cervical 3-7 laminectomy. SOCIAL HISTORY: Lives with family. ALLERGIES: NONE. MEDICATIONS: Taking . FAMILY HISTORY: Unremarkable. REVIEW OF SYSTEMS: Additional 10-point review of systems conducted. Pertinent positives stated. PHYSICAL EXAMINATION: GENERAL APPEARANCE: The patient is awake, alert and oriented. Follows commands properly. HEENT: Unremarkable. Mouth, no lesions. NECK: Supple. No thyromegaly. PULMONARY: No dyspnea or tachypnea. CARDIAC: No JVD. No pedal edema. ABDOMEN: Soft without guarding. NEUROLOGIC: GCS 15, cranial II-XII are in intact. EXTREMITIES: Upper extremity examination, he moves both upper extremities equally but has a significant lymphedema in the right upper extremity compared to the left. The left side has significant muscle atrophy. Lower extremity examination, he is having difficult with the range of motion of the hips, knees and ankles. Overall strength is about 3/5. The patient is mostly well-chair bound. IMAGING STUDIES: MRI of the thoracic spine shows a severe stenosis T10 to T11 with cord compression. RECOMMENDATIONS: Recommendation is for patient to undergo surgical intervention in the form of thoracic T10-T11 laminectomy and if possible C2 fusion. This was discussed with the patient in great detail. Complications were explained in detail. The patient has agreed and wants to go ahead and proceed with the surgery. The patient will be admitted to the hospital and we will follow and make further recommendations. Dictated By: Diony Castellano MD /keegan/josefa /Document#: [id number]
[2016-11-23] MEDS: CEFAZOLIN 1 GM/50 ML (PMX) 50 ML IVPB SCH ×2 (14:00→20:08)
[2016-11-23] MEDS ORDERED: hydrALAzine 20 MG INJ ONE (14:30)
--- NOTE | 2016-11-23 14:32 | RADRPT ---
Vent Rate: 64 bpm RR Interval: 0 msec [place] Interval: 160 msec QRS Duration: 90 msec QT Interval: 404 msec QTC Interval: 416 msec P-R-T [place]: 38 - 77 - 13 degrees Normal sinus rhythm with sinus arrhythmia Normal ECG Electronically Signed By: Wallace Hernandez [id number]
[2016-11-23] MEDS ORDERED: SUGAMMADEX SODIUM 200 MG/2 ML VIAL IV ONE (14:37)
--- NOTE | 2016-11-23 15:34 | OPR ---
Date/Time of Note Date/Time of Note DATE: 11/23/16 TIME: 15:31 Operative Report Procedure Date: Nov 23, 2016 Preoperative Diagnosis thoracic stenosis t10-11 Postoperative Diagnosis MYELOPATHY WITH PARAPLEGIA DUE TO CORD COMPRESSION Operation Performed THORACIC 10-11 LAMIECTOMY WITH POSTEROLATERAL FUSION Surgeon: RAFAEL SINGH MD Client Executive: SHERLY ROGERS PA-C Anesthesiologist: VASQUEZ GARCIA MD Estimated Blood Loss: 250 - 300 ml's Specimens thoracic lamina Complications: None Pt Condition Post Procedure: stable Disposition: PACU RAFAEL SINGH MD Nov 23, 2016 15:34
[2016-11-23] MEDS ORDERED: HYDROmorphONE (0.2 MG/ML) 10ML SYG IV ONE (16:19)
[2016-11-23] MEDS: HYDROmorphONE (0.2 MG/ML) 10ML SYG IV PRN ×2 (16:39→16:49)
--- NOTE | 2016-11-23 17:07 | RADRPT ---
PROCEDURE: Intraoperative imaging of the thoracic spine with fluoroscopy. CLINICAL INDICATION: Back pain. Intraoperative. TECHNIQUE: 19 images of the thoracic spine were obtained in the operating room with an image inten sifier. No radiologist was in attendance. Fluoroscopy time is 54 seconds. COMPARISON: No prior study is available for comparison. FINDINGS: Images demonstrate surgical instruments overlying the thoracic spine posteriorly. IMPRESSION: 1. Intraoperative imaging of the thoracic spine. RPTAT: QQ .Gonsalo Christopher MD, MD Date Time Electronically viewed and signed by .Gonsalo Christopher MD, on 11/23/2016 17:06 .R/
[2016-11-23] MEDS: morphine 4 MG/ML VIAL IV PRN (18:21)
[2016-11-23] MEDS: DEXAMETHASONE 4 MG/ML 1 ML INJ IV SCH (18:22)
[2016-11-23] MEDS: HYDROmorphONE 0.2 MG/ML PCA IV SCH (18:40)
[2016-11-23] MEDS: DEXTROSE 5%-LR 1,000 ML IV SCH (20:07)
[2016-11-24] VITALS: BP 142/64; PULSE 70; RESP 16
[2016-11-24] MEDS: DEXAMETHASONE 4 MG/ML 1 ML INJ IV SCH ×4 (00:17→17:43)
[2016-11-24 02:00] VITALS: BP 121/56; RESP 19
[2016-11-24] MEDS: DEXTROSE 5%-LR 1,000 ML IV SCH ×2 (03:18→05:26)
[2016-11-24] MEDS: CEFAZOLIN 1 GM/50 ML (PMX) 50 ML IVPB SCH ×2 (05:26→13:01)
[2016-11-24 05:30] VITALS: BP 120/56; PULSE 75; RESP 18
[2016-11-24] MEDS: HYDROmorphONE 0.2 MG/ML PCA IV SCH (05:41)
[2016-11-24 07:19] LABS: ABNORMAL IP MESSAGE 1; BASOPHILS % 0.1 % (0.0-2.0); HEMATOCRIT 39.2 % (42.0-52.0); HEMOGLOBIN 12.7 g/dl (14.0-18.0); LYMPHOCYTES # 0.6 10^3/ul (0.8-2.9); LYMPHOCYTES % 6.3 % (15.0-51.0); MEAN CORPUSCULAR HGB CONC 32.4 g/dl (32.0-37.0); MEAN CORPUSCULAR VOLUME 86.3 fl (82.0-101.0); MEAN PLATELET VOLUME 9.7 fl (7.4-10.4); MONOCYTE # 0.4 10^3/ul (0.3-0.9); MONOCYTES % 4.2 % (0.0-11.0); NEUTROPHILS % 89.1 % (39.0-77.0); PLATELET COUNT 232 10^3/UL (140-415); POSITIVE DIFF @See below; RED BLOOD COUNT 4.54 10^6/ul (4.70-6.10); RED CELL DISTRIBUTION WIDTH 14.7 % (11.5-14.5)
[2016-11-24 08:11] VITALS: BP 123/57; RESP 20
[2016-11-24 14:22] VITALS: BP 130/69; RESP 20
--- NOTE | 2016-11-24 14:43 | HP ---
Date/Time of Note Date/Time of Note DATE: 11/24/16 TIME: 14:42 Assessment/Plan VTE Prophylaxis VTE Prophylaxis Intervention: other Lines/Catheters IV Catheter Type (from Nrs): Peripheral IV Urinary Cath still in place: Yes Reason Cath still needed: skin wounds contaminated by urine Assessment/Plan Chief Complaint/Hosp Course 1) spinal stenosis - s/p laminectomy Problems: HPI/ROS Admit Date/Time Admit Date/Time Nov 23, 2016 at 09:52 Hx of Present Illness Patient with gait instability was found to have spinal stenosis. Patient under laminectomy and is now having postoperative care. PMH/Family/Social Past Medical History obesity Social History Smoking Status: Never smoker Exam/Review of Systems Vital Signs Vitals Vital Signs Date Time Temp Pulse Resp B/P Pulse Ox O2 Delivery O2 Flow Rate FiO2 11/24/16 14:22 98.0 88 20 130/69 94 11/24/16 05:30 Nasal Cannula 2.0 Intake and Output 11/23/16 11/23/16 11/24/16 14:59 22:59 06:59 Intake Total 2100 ml 1220 ml Output Total 800 ml 1900 ml Balance 1300 ml -680 ml Exam Constitutional: well developed Head: atraumatic, normocephalic Neck: supple Respiratory: clear to auscultation Cardiovascular: regular rate and rhythm Gastrointestinal: non-tender, soft Extremities: normal pulses Labs Result Diagram: 11/24/16 0650 11/23/16 1201 Medications Medications Current Medications Dextrose/Lactated Ringer's (D5-Lr) 1,000 ml @ 70 mls/hr [id number] IV Last administered on 11/24/16 05:26; Admin Dose 70 MLS/HR; Start 11/23/16 at 13:00 Ondansetron HCl (Zofran Inj) 4 mg Q4H PRN IV NAUSEA AND/OR VOMITING; Start 11/23 at 13:00 Dexamethasone (Decadron) 4 mg Q6 IV Last administered on 11/24/16 13:01; Admin Dose 4 MG; Start 11/23/16 at 18:00 Morphine Sulfate (morphine) 2 mg Q3H PRN IV PAIN Last administered on 11/23/16 18:21; Admin Dose 2 MG; Start 11/23/16 at 18:12 Hydromorphone HCl (Dilaudid [employer]) MG/HR CONTINUOUS RATE ... Q4PCA IV Last administered on 11/24/16t 05:41; Admin Dose 6 MG; Start 11/23/16 at 18:30 AMILCAR RICK Nov 24, 2016 14:43
[2016-11-24] MEDS: morphine 4 MG/ML VIAL IV PRN ×2 (15:41→19:58)
[2016-11-24] MEDS: HYDROmorphONE 2 MG/ML SYG IV PRN ×2 (17:38→21:47)
[2016-11-24 19:52] VITALS: BP 124/63; RESP 20
[2016-11-25] MEDS: DEXAMETHASONE 4 MG/ML 1 ML INJ IV SCH ×4 (00:11→17:06)
[2016-11-25] MEDS: DEXTROSE 5%-LR 1,000 ML IV SCH ×2 (02:45→21:06)
[2016-11-25 02:58] VITALS: BP 129/50; RESP 18
[2016-11-25] MEDS: HYDROmorphONE 2 MG/ML SYG IV PRN ×2 (06:39→10:28)
[2016-11-25 08:37] VITALS: BP 115/59; RESP 18
--- NOTE | 2016-11-25 10:39 | CONS ---
Date/Time of Note Date/Time of Note DATE: 11/25/16 TIME: 10:38 Assessment/Plan Assessment/Plan Additional Assessment/Plan seen/examined awake/alert/follows, still having weakness in lower extremities sp T10-11 lami with in situ fusion drain with minimal collection, will dc pt/ot adjust pain meds. Consultation Date/Type/Reason Admit Date/Time Nov 23, 2016 at 09:52 Initial Consult Date Exam/Review of Systems Vital Signs Vitals Vital Signs Date Time Temp Pulse Resp B/P Pulse Ox O2 Delivery O2 Flow Rate FiO2 11/25/16 08:37 98.4 74 18 115/59 95 11/24/16 14:30 Nasal Cannula 1.0 Intake and Output 11/24/16 11/24/16 11/25/16 15:00 23:00 07:00 Intake Total 50 ml 1300 ml 860 ml Output Total 1840 ml 1600 ml Balance 50 ml -540 ml -740 ml Results Result Diagram: 11/24/16 0650 11/23/16 1201 Medications Medications Current Medications Dextrose/Lactated Ringer's (D5-Lr) 1,000 ml @ 70 mls/hr [id number] IV Last administered on 11/25/16 02:45; Admin Dose 70 MLS/HR; Start 11/23/16 at 13:00 Ondansetron HCl (Zofran Inj) 4 mg Q4H PRN IV NAUSEA AND/OR VOMITING; Start 11/23 at 13:00 Dexamethasone (Decadron) 4 mg Q6 IV Last administered on 11/25/16 06:42; Admin Dose 4 MG; Start 11/23/16 at 18:00 Morphine Sulfate (morphine) 2 mg Q3H PRN IV PAIN Last administered on 11/24/16 19:58; Admin Dose 2 MG; Start 11/23/16 at 18:12 Hydromorphone HCl (Dilaudid) 2 mg Q4H PRN IV PAIN Last administered on 10:28; Admin Dose 2 MG; Start 11/24/16 at 15:00 SHERLY ROGERS PA-C Nov 25, 2016 10:39
--- NOTE | 2016-11-25 12:04 | PN ---
Date/Time of Note Date/Time of Note DATE: 11/25/16 TIME: 12:03 Assessment/Plan VTE Prophylaxis VTE Prophylaxis Intervention: other Lines/Catheters IV Catheter Type (from Nrsg): Peripheral IV Urinary Cath still in place: Yes Reason Cath still needed: skin wounds contaminated by urine Assessment/Plan Chief Complaint/Hosp Course 1) spinal stenosis - s/p laminectomy Problems: Subjective 24 Hr Interval Summary Free Text/Dictation Patient complain of back pain, wants to have physical therapy Exam/Review of Systems Vital Signs Vitals Vital Signs Date Time Temp Pulse Resp B/P Pulse Ox O2 Delivery O2 Flow Rate FiO2 11/25/16 08:37 98.4 74 18 115/59 95 11/24/16 14:30 Nasal Cannula 1.0 Intake and Output 11/24/16 11/24/16 11/25/16 14:59 22:59 06:59 Intake Total 50 ml 1300 ml 860 ml Output Total 1840 ml 1600 ml Balance 50 ml -540 ml -740 ml Exam Constitutional: well developed Head: atraumatic, normocephalic Neck: supple Respiratory: clear to auscultation Cardiovascular: regular rate and rhythm Gastrointestinal: non-tender, soft Extremities: normal pulses Results Result Diagram: 11/24/16 0650 11/23/16 1201 Medications Medications Current Medications Dextrose/Lactated Ringer's (D5-Lr) 1,000 ml @ 70 mls/hr [id number] IV Last administered on 11/25/16 02:45; Admin Dose 70 MLS/HR; Start 11/23/16 at 13:00 Ondansetron HCl (Zofran Inj) 4 mg Q4H PRN IV NAUSEA AND/OR VOMITING; Start 11/23 at 13:00 Dexamethasone (Decadron) 4 mg Q6 IV Last administered on 11/25/16 06:42; Admin Dose 4 MG; Start 11/23/16 at 18:00 Morphine Sulfate (morphine) 2 mg Q3H PRN IV PAIN Last administered on 11/24/16 19:58; Admin Dose 2 MG; Start 11/23/16 at 18:12 Acetaminophen/ Hydrocodone Bitart ([place] (10/325)) 1 tab Q4H PRN PO mild to mod pain; Start 11/25/16 at 11:00 AMILCAR RICK Nov 25, 2016 12:04
[2016-11-25] MEDS: morphine 4 MG/ML VIAL IV PRN ×3 (15:07→21:07)
[2016-11-25 15:44] VITALS: BP 131/80; RESP 18
[2016-11-25 20:40] VITALS: BP 140/81; RESP 20
[2016-11-26] MEDS: DEXAMETHASONE 4 MG/ML 1 ML INJ IV SCH ×4 (00:09→17:46)
[2016-11-26] MEDS: morphine 4 MG/ML VIAL IV PRN ×5 (03:14→21:52)
[2016-11-26 03:48] VITALS: BP 129/64; RESP 20
[2016-11-26 07:58] VITALS: BP 127/61; RESP 20
--- NOTE | 2016-11-26 11:59 | PN ---
Date/Time of Note Date/Time of Note DATE: 11/26/16 TIME: 11:58 Assessment/Plan VTE Prophylaxis VTE Prophylaxis Intervention: other Lines/Catheters IV Catheter Type (from Nrsg): Peripheral IV Urinary Cath still in place: Yes Reason Cath still needed: skin wounds contaminated by urine Assessment/Plan Chief Complaint/Hosp Course 1) spinal stenosis - s/p laminectomy Problems: Subjective 24 Hr Interval Summary Free Text/Dictation Patient complain that he doesn't get enough pain medication Exam/Review of Systems Vital Signs Vitals Vital Signs Date Time Temp Pulse Resp B/P Pulse Ox O2 Delivery O2 Flow Rate FiO2 11/26/16 07:58 97.8 61 20 127/61 96 11/24/16 14:30 Nasal Cannula 1.0 Intake and Output 11/25/16 11/25/16 11/26/16 15:00 23:00 07:00 Intake Total 1680 ml 1360 ml Output Total 2200 ml 2600 ml Balance -520 ml -1240 ml Exam Constitutional: well developed Head: atraumatic, normocephalic Neck: supple Respiratory: clear to auscultation Cardiovascular: regular rate and rhythm Gastrointestinal: non-tender, soft Extremities: normal pulses Results Result Diagram: 11/24/16 0650 11/23/16 1201 Medications Medications Current Medications Dextrose/Lactated Ringer's (D5-Lr) 1,000 ml @ 70 mls/hr [id number] IV Last administered on 11/25/16 21:06; Admin Dose 70 MLS/HR; Start 11/23/16 at 13:00 Ondansetron HCl (Zofran Inj) 4 mg Q4H PRN IV NAUSEA AND/OR VOMITING; Start 11/23 at 13:00 Dexamethasone (Decadron) 4 mg Q6 IV Last administered on 11/26/16 05:55; Admin Dose 4 MG; Start 11/23/16 at 18:00 Morphine Sulfate (morphine) 2 mg Q3H PRN IV PAIN Last administered on 11/26/16 10:32; Admin Dose 2 MG; Start 11/23/16 at 18:12 Acetaminophen/ Hydrocodone Bitart ([place] (10/325)) 1 tab Q4H PRN PO mild to mod pain; Start 11/25/16 at 11:00 AMILCAR RICK Nov 26, 2016 11:59
[2016-11-26] MEDS: DEXTROSE 5%-LR 1,000 ML IV SCH (17:00)
--- NOTE | 2016-11-26 17:55 | CONS ---
Date/Time of Note Date/Time of Note DATE: 11/26/16 TIME: 17:51 Assessment/Plan Assessment/Plan Chief Complaint/Hosp Course co abd pain, no bm yet only flatus Problems: Additional Assessment/Plan seen/examined awake/alert/follows/moves all, weakness bilateral lower extremities, same as preop. right upper quadrant/ right lower quadrant tenderness cbc,liver panel,bmp abd ct with contrast Consultation Date/Type/Reason Admit Date/Time Nov 23, 2016 at 09:52 Exam/Review of Systems Vital Signs Vitals Vital Signs Date Time Temp Pulse Resp B/P Pulse Ox O2 Delivery O2 Flow Rate FiO2 11/26/16 07:58 97.8 61 20 127/61 96 11/24/16 14:30 Nasal Cannula 1.0 Intake and Output 11/25/16 11/25/16 11/26/16 15:00 23:00 07:00 Intake Total 1680 ml 1360 ml Output Total 2200 ml 2600 ml Balance -520 ml -1240 ml Results Result Diagram: 11/24/16 0650 11/23/16 1201 Medications Medications Current Medications Dextrose/Lactated Ringer's (D5-Lr) 1,000 ml @ 70 mls/hr [id number] IV Last administered on 11/25/16 21:06; Admin Dose 70 MLS/HR; Start 11/23/16 at 13:00 Ondansetron HCl (Zofran Inj) 4 mg Q4H PRN IV NAUSEA AND/OR VOMITING; Start 11/23 at 13:00 Dexamethasone (Decadron) 4 mg Q6 IV Last administered on 11/26/16 17:46; Admin Dose 4 MG; Start 11/23/16 at 18:00 Morphine Sulfate (morphine) 2 mg Q3H PRN IV PAIN Last administered on 11/26/16 15:18; Admin Dose 2 MG; Start 11/23/16 at 18:12 Acetaminophen/ Hydrocodone Bitart ([place] (10/325)) 1 tab Q4H PRN PO mild to mod pain; Start 11/25/16 at 11:00 HSERLY ROGERS PA-C Nov 26, 2016 17:55
[2016-11-26] MEDS ORDERED: BARIUM SULF 2% 450 ML BTL (BERRY SMOOTHIE) PO ONE (18:00)
[2016-11-26 18:56] LABS: HEMATOCRIT 33.9 % (42.0-52.0); LYMPHOCYTES # 0.8 10^3/ul (0.8-2.9); MEAN CORPUSCULAR HEMOGLOBIN 28.2 pg (29.0-33.0); MEAN CORPUSCULAR HGB CONC 32.4 g/dl (32.0-37.0); MEAN CORPUSCULAR VOLUME 86.9 fl (82.0-101.0); MONOCYTE # 0.4 10^3/ul (0.3-0.9); NEUTROPHIL # 6.4 10^3/ul (1.6-7.5); NEUTROPHILS % 84.5 % (39.0-77.0); PLATELET COUNT 206 10^3/UL (140-415); RED CELL DISTRIBUTION WIDTH 14.7 % (11.5-14.5); WHITE BLOOD COUNT 7.6 10^3/ul (4.8-10.8)
[2016-11-26 19:21] LABS: ALBUMIN 3.4 g/dl (3.3-4.9); BILIRUBIN,INDIRECT 0.1 mg/dl (0-1.1); BILIRUBIN,TOTAL 0.1 mg/dl (0.2-1.3); CALCIUM 8.6 mg/dl (8.4-10.2); CREATININE 0.68 mg/dl (0.61-1.24); POTASSIUM 4.4 mmol/L (3.5-5.1); TOTAL PROTEIN 6.1 g/dl (6.1-8.1)
[2016-11-26 20:26] VITALS: BP 129/75; RESP 16
[2016-11-26] MEDS: HYDROCODONE/APAP (10/325) TAB PO PRN (20:44)
[2016-11-26] MEDS ORDERED: SOD CHLORIDE 0.9% 100 ML ONE (21:03)
[2016-11-26] MEDS ORDERED: IOHEXOL 300MG/ML 150 ML BTL ONE (21:03)
[2016-11-27] MEDS: morphine 4 MG/ML VIAL IV PRN ×6 (01:19→19:27)
[2016-11-27 02:44] VITALS: BP 115/56; RESP 16
[2016-11-27] MEDS: HYDROCODONE/APAP (10/325) TAB PO PRN ×3 (05:02→22:05)
--- NOTE | 2016-11-27 07:09 | RADRPT ---
PROCEDURE: CT Abdomen and Pelvis with contrast. CLINICAL INDICATION: right-sided abdominal pain TECHNIQUE: CT of the abdomen and pelvis was performed on a multi-detector scanner following the un complicated IV administration of 100 cc of Omnipaque 300. Coronal and sagittal images were reformat luis from the axial data set. One or more of the following dose reduction techniques were used: auto mated exposure control, adjustment of the mA and/or kV according to patient size, use of iterative reconstruction technique. CTDI = 23.41 mGy. DLP = 1431.09 mGy-cm. COMPARISON: None. FINDINGS: CT abdomen: Reticulonodular hyperdensities are noted at the lung bases, possibly sequelae of prior aspirated bar ium. There is mild cardiomegaly, without pericardial effusion. The liver is enlarged (23 cm) and f atty infiltrated, without evidence of focal mass. Gallbladder is surgically absent. Biliary tree, pancreas, spleen, adrenal glands and kidneys are unremarkable except for benign renal cysts. No uro lithiasis or obstructive uropathy is identified. The stomach is grossly unremarkable. There is no abdominal aortic aneurysm or dissection. There is no retroperitoneal lymphadenopathy. The rebeka hepatis region is clear. CT pelvis: No bowel obstruction, free intraperitoneal air or abscess is identified. The appendix is well visua lized and normal. There is no diverticulosis, diverticulitis or colitis. Coles catheter balloon is within the urinary bladder. No pelvic mass, free fluid or lymphadenopathy is identified. The surrounding osseous structures are remarkable for degenerative enthesopathy of the spine. No os teolytic or osteoblastic lesion is detected. The patient is status post T9, T10 and T11 laminectomie s. IMPRESSION: 1. Hepatic steatosis and hepatomegaly. 2. Gallbladder is surgically absent. 3. Reticulonodular hyperdensities are noted at the lung bases, possibly sequelae of prior barium as piration. 4. Mild cardiomegaly. 5. Coles catheter balloon is within the urinary bladder. 6. No mass, lymphadenopathy, or focal acute inflammatory process is identified. RPTAT: PP .Danis Olivera MD, Date Time Electronically viewed and signed by .Danis Olivera MD, on 11/27/2016 07:09 .R/
[2016-11-27] MEDS: DEXAMETHASONE 4 MG TAB PO SCH (08:11)
[2016-11-27 08:13] VITALS: BP 143/75; RESP 19
--- NOTE | 2016-11-27 08:41 | PN ---
Date/Time of Note Date/Time of Note DATE: 11/27/16 TIME: 08:40 Assessment/Plan Lines/Catheters IV Catheter Type (from Nrsg): Saline Lock Coles in Place (from Nrsg): Yes Assessment/Plan Assessment/Plan pt seen and examined doing better alert moves all still with pain rec rehab eval and transfer if accepted otherwise half-way Exam/Review of Systems Vital Signs Vitals Vital Signs Date Time Temp Pulse Resp B/P Pulse Ox O2 Delivery O2 Flow Rate FiO2 11/27/16 08:13 98.6 52 19 143/75 96 11/24/16 14:30 Nasal Cannula 1.0 Intake and Output 11/26/16 11/26/16 11/27/16 15:00 23:00 07:00 Intake Total 1020 ml 540 ml Output Total 1900 ml 2050 ml Balance -880 ml -1510 ml Results Result Diagram: 11/26/16182911/26/16 183 RAFAEL SINGH MD Nov 27, 2016 08:41
--- NOTE | 2016-11-27 10:39 | OPR ---
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 PROCEDURES: 1. T10 bilateral laminectomy,and foraminotomy, CPT 41656. 2. T11 bilateral laminectomy and foraminotomy, CPT 76094. 3. T10-T11 posterolateral fusion, CPT 40252. SURGEON: MD Rishi Bowman PA COMPLICATIONS: None. ANESTHESIA: General endotracheal. ESTIMATED BLOOD LOSS: Less than 200. SPECIMEN: T10 and T11 lamina was sent to pathology. INDICATION: The patient is approximately 61-year-old with paraplegia due to severe thoracic stenosis at T10-T11 with cord compression, signal changes in the cord. We will proceed with thoracic laminectomy T10-T11 with decompression of thoracic spine. We discussed the patient the , risks of infection, bleeding, and was explained to the patient and he agrees to proceed with the operation and signed the consent. PROCEDURE IN DETAIL: After adequate general anesthesia the patient was placed in the prone position. The lumbar region was prepped and draped in normal sterile fashion. Fluoroscopy was utilized to identify the position at the T10-T11. Decompression laminectomy of T10-T11 was carried out. There was severe stenosis at T10-11, severe hypertrophy at the facet. There was evidence of old injury to the region. Across the transverse was decorticated and removed the from one pedicle to the other was done. The spinal markings showed no changes in the signal. Following this I proceeded with laminectomy at T10-T11. I pressed the bone the was harvested during the laminectomy across the transverse in the intervertebral space between the T10-T11 and achieved posterolateral fusion. We then space . Closure at this time was started. Irrigation of space. All the bleeders were stopped with bipolar cautery. Gelfoam was applied to stop any additional bleeding. Closure of the wound was done number 1-0 Vicryl for lumbar disk fascia and 3-0 Vicryl of the subcutaneous tissues and stay sutures of the skin. The patient tolerated the procedure well. He was taken to post anesthesia in stable condition. Dictated By: Diony Castellano MD /keegan/matias /Document#: [id number] BARON
[2016-11-27 14:01] VITALS: BP 117/76; RESP 19
[2016-11-27 19:20] VITALS: BP 133/61; RESP 20
[2016-11-27] MEDS ORDERED: ACETAMINOPHEN 325 MG TAB PO PRN (19:30)
[2016-11-27] MEDS ORDERED: BISACODYL (EC) 5 MG TAB PO PRN (19:30)
[2016-11-27] MEDS ORDERED: SENNA TAB PO PRN (19:30)
--- NOTE | 2016-11-27 21:34 | RADRPT ---
PROCEDURE: Right upper extremity venous ultrasound CLINICAL INDICATION: Right arm pain and swelling, deep venous thrombosis TECHNIQUE: Peck scale, color doppler, spectral doppler ultrasound imaging of the venous system of the right upper extremity. Augmentation maneuvers were utilized. COMPARISON: No prior studies are available for comparison. FINDINGS: RIGHT: Internal jugular vein: Patent. Subclavian vein: Patent. Axillary vein: Patent. Brachial vein: Patent. Basilic vein: Patent. Cephalic vein: Patent. Radial vein: Patent. Ulnar vein: Patent. IMPRESSION: No evidence of a deep vein thrombosis involving the right upper extremity. RPTAT: AADD .Gagan Bowers MD, MD Date Time Electronically viewed and signed by .Gagan Bowers MD, on 11/27/2016 21:34 .B/
[2016-11-27] MEDS: ATORVASTATIN 10 MG TAB PO SCH (22:06)
[2016-11-28 01:36] VITALS: BP 122/69; RESP 18
[2016-11-28] MEDS: morphine 4 MG/ML VIAL IV PRN ×5 (01:53→22:41)
--- NOTE | 2016-11-28 04:05 | PN ---
DATE: 11/27/2016 SUBJECTIVE DATA: Follow up on T10 to T11 laminectomy due to thoracic stenosis, thoracic myelopathy and paraplegia at T10 and T11. The patient denies any chest pain or short of breath. The patient no abdominal pain or vomiting. The patient has not had any BM since admission. No fever or chills. OBJECTIVE DATA: GENERAL: The patient to be conscious, awake, alert. VITAL SIGNS: Stable. Afebrile. Temperature 97.5. HEENT: No eye discharge or redness. Nose is normal. Oropharynx clear. NECK: No mass. CHEST: Fairly clear. HEART: S1, S2 normal. No murmur. ABDOMEN: Soft, nontender. EXTREMITIES: Both lower extremities are edematous due to chronic lymph edema. Patient has superficial ulceration of the left leg and also partial amputation of the left foot. The patient also noted to have right upper extremity swelling, which he reports that he has had since after he left the hospital in June 2016. At that time, he was admitted for cervical spine laminectomy. NEUROLOGIC: Patient is awake, alert, has paraplegia and also some weakness in both upper extremities due to cervical myelopathy. PLAN: We will add Senokot and we will give Senokot and Dulcolax. We will obtain venous Doppler of the right upper extremity. The patient does have a history of [place] disease, edema, and lymphedema. Meanwhile, we will continue to hold his antihypertensive medication due to his blood pressure being in the low 100s. We will resume Lipitor. Plan of care discussed with nursing staff. Dictated By: Joshua Olivera MD /keegan/rocael /Document#: [id number] BARON
[2016-11-28 08:38] VITALS: BP 141/85; RESP 20
[2016-11-28] MEDS: DEXAMETHASONE 4 MG TAB PO SCH (10:03)
[2016-11-28 13:57] VITALS: BP 132/86; RESP 20
--- NOTE | 2016-11-28 14:04 | PN ---
Date/Time of Note Date/Time of Note DATE: 11/28/16 TIME: 13:47 Assessment/Plan VTE Prophylaxis VTE Prophylaxis Intervention: SCD's Lines/Catheters IV Catheter Type (from Nrsg): Saline Lock Urinary Cath still in place: Yes Reason Cath still needed: urinary retention Assessment/Plan Chief Complaint/Hosp Course Patient's complains of postoperative pain not relieved with 2 mg of morphine every 4 hours, dose increased by surgery. Patient denies any fever nausea vomiting. Bowel movement 1 today. Problems: Assessment/Plan -Myelopathy with paraplegia due to cord compression, status post thoracic 10-11 laminectomy with posterolateral fusion by Dr. Castellano. Continue to follow-up surgical recommendation. Continue Decadron and [place] and morphine as needed for pain. -Chronic lymphedema -Hypertension, patient is currently normotensive. -Obesity -Status post left lower extremity partial amputation. -Constipation, resolved. Further recommendations based on clinical course. Plan of care discussed with Dr. Olivera. Exam/Review of Systems Vital Signs Vitals Vital Signs Date Time Temp Pulse Resp B/P Pulse Ox O2 Delivery O2 Flow Rate FiO2 11/28/16 08:38 97.7 64 20 141/85 97 11/24/16 14:30 Nasal Cannula 1.0 Intake and Output 11/27/16 11/27/16 11/28/16 15:00 23:00 07:00 Intake Total 1320 ml Output Total 3500 ml Balance -2180 ml Exam Constitutional: alert, oriented Head: normocephalic Neck: supple Respiratory: normal air movement Cardiovascular: nl pulses Gastrointestinal: non-tender, soft Extremities: edema, other (Left lower extremity status post partial amputation , edema of the right upper and lower extremities) Skin: nl turgor Results Result Diagram: 11/26/16 18311/26/16 1830 Medications Medications Current Medications Ondansetron HCl (Zofran Inj) 4 mg Q4H PRN IV NAUSEA AND/OR VOMITING; Start 11/23 at 13:00 Acetaminophen/ Hydrocodone Bitart ([place] (10/325)) 1 tab Q4H PRN PO mild to mod pain Last administered on 11/27/16 22:05; Admin Dose 1 TAB; Start 11/25/16 at 11:00 Dexamethasone (Decadron) 4 mg DAILY PO Last administered on 11/28/16 10:03; Admin Dose 4 MG; Start 11/27/16 at 09:00; Stop 11/29/16 at 09:00 Bisacodyl (Dulcolax) 10 mg DAILY PRN PO CONSTIPATION Last administered on 22:38; Admin Dose 10 MG; Start 11/27/16 at 19:30 Senna (Senokot) 2 tab DAILY PRN PO CONSTIPATION Last administered on 11/27/16 19:26; Admin Dose 2 TAB; Start 11/27/16 at 19:30 Acetaminophen (Tylenol Tab) 650 mg Q4H PRN PO PAIN AND OR ELEVATED TEMP; Start 11/27/16 at 19:30 Atorvastatin Calcium (Lipitor) 10 mg QHS PO Last administered on 11/27/16 22:06 ; Admin Dose 10 MG; Start 11/27/16 at 21:00 Morphine Sulfate (morphine) 4 mg Q4H PRN IV PAIN; Start 11/28/16 at 12:00 MICHELLE KOROMA Nov 28, 2016 13:58
[2016-11-28 19:05] VITALS: BP 136/74; RESP 18
[2016-11-28] MEDS: ATORVASTATIN 10 MG TAB PO SCH (21:47)
[2016-11-29 01:56] VITALS: BP 134/68; RESP 18
[2016-11-29] MEDS: morphine 4 MG/ML VIAL IV PRN ×6 (02:31→23:06)
[2016-11-29 05:14] LABS: BASOPHILS % 0.1 % (0.0-2.0); EOSINOPHILS # 0.1 10^3/ul (0.0-0.5); HEMATOCRIT 35.8 % (42.0-52.0); HEMOGLOBIN 11.8 g/dl (14.0-18.0); LYMPHOCYTES # 2.7 10^3/ul (0.8-2.9); LYMPHOCYTES % 28.5 % (15.0-51.0); MEAN CORPUSCULAR HEMOGLOBIN 28.2 pg (29.0-33.0); MEAN CORPUSCULAR VOLUME 85.4 fl (82.0-101.0); MEAN PLATELET VOLUME 9.4 fl (7.4-10.4); MONOCYTE # 0.7 10^3/ul (0.3-0.9); MONOCYTES % 6.8 % (0.0-11.0); NEUTROPHILS % 62.9 % (39.0-77.0); PLATELET COUNT 256 10^3/UL (140-415); RED BLOOD COUNT 4.19 10^6/ul (4.70-6.10); RED CELL DISTRIBUTION WIDTH 14.7 % (11.5-14.5); WHITE BLOOD COUNT 9.6 10^3/ul (4.8-10.8)
[2016-11-29 05:48] LABS: CALCIUM 8.4 mg/dl (8.4-10.2); CREATININE 0.78 mg/dl (0.61-1.24); POTASSIUM 3.9 mmol/L (3.5-5.1)
[2016-11-29 07:43] VITALS: BP 126/80; RESP 18
[2016-11-29] MEDS: DEXAMETHASONE 4 MG TAB PO SCH (08:17)
--- NOTE | 2016-11-29 12:54 | PN ---
Date/Time of Note Date/Time of Note DATE: 11/29/16 TIME: 12:52 Assessment/Plan VTE Prophylaxis VTE Prophylaxis Intervention: SCD's Lines/Catheters IV Catheter Type (from Nrs): Saline Lock Urinary Cath still in place: Yes Reason Cath still needed: urinary retention Assessment/Plan Chief Complaint/Hosp Course Patient remains hemodynamically stable, however complains of significant back pain, pending acute rehab evaluation Assessment/Plan -Myelopathy with paraplegia due to cord compression, status post thoracic 10-11 laminectomy with posterolateral fusion by Dr. Castellano. Continue to follow-up surgical recommendation. Continue Decadron and [place] and morphine as needed for pain. -Chronic lymphedema -Hypertension, patient is currently normotensive. -Obesity -Status post left lower extremity partial amputation. -Constipation, resolved. Further recommendations based on clinical course. Plan of care discussed with Dr. Olivera. Problems: Exam/Review of Systems Vital Signs Vitals Vital Signs Date Time Temp Pulse Resp B/P Pulse Ox O2 Delivery O2 Flow Rate FiO2 11/29/16 07:43 97.8 91 18 126/80 98 Intake and Output 11/28/16 11/28/16 11/29/16 15:00 23:00 07:00 Intake Total 1000 ml 920 ml Output Total 1900 ml 3300 ml Balance -900 ml -2380 ml Exam Constitutional: alert, oriented Head: normocephalic Neck: supple Respiratory: normal air movement Cardiovascular: nl pulses Gastrointestinal: non-tender, soft Extremities: edema, other (Left lower extremity status post partial amputation , edema of the right upper and lower extremities) Skin: nl turgor Results Result Diagram: 11/29/16 0448 11/29/16 0448 Results 24 hrs Laboratory Tests Test 11/29/16 04:48 White Blood Count 9.6 # Red Blood Count 4.19 L Hemoglobin 11.8 L Hematocrit 35.8 L Mean Corpuscular Volume 85.4 Mean Corpuscular Hemoglobin 28.2 L Mean Corpuscular Hemoglobin Concent 33.0 Red Cell Distribution Width 14.7 H Platelet Count 256 # Mean Platelet Volume 9.4 Neutrophils % 62.9 Lymphocytes % 28.5 Monocytes % 6.8 Eosinophils % 1.0 Basophils % 0.1 Nucleated Red Blood Cells % 0.0 Neutrophils # 6.0 Lymphocytes # 2.7 Monocytes # 0.7 Eosinophils # 0.1 Basophils # 0.0 Nucleated Red Blood Cells # 0.0 Sodium Level 138 Potassium Level 3.9 Chloride Level 99 Carbon Dioxide Level 27 Anion Gap 16 Blood Urea Nitrogen 15 Creatinine 0.78 Glucose Level 154 Calcium Level 8.4 Medications Medications Current Medications Ondansetron HCl (Zofran Inj) 4 mg Q4H PRN IV NAUSEA AND/OR VOMITING; Start 11/23 at 13:00 Acetaminophen/ Hydrocodone Bitart ([place] (10/325)) 1 tab Q4H PRN PO mild to mod pain Last administered on 11/27/16 22:05; Admin Dose 1 TAB; Start 11/25/16 at 11:00 Bisacodyl (Dulcolax) 10 mg DAILY PRN PO CONSTIPATION Last administered on 22:38; Admin Dose 10 MG; Start 11/27/16 at 19:30 Senna (Senokot) 2 tab DAILY PRN PO CONSTIPATION Last administered on 11/27/16 19:26; Admin Dose 2 TAB; Start 11/27/16 at 19:30 Acetaminophen (Tylenol Tab) 650 mg Q4H PRN PO PAIN AND OR ELEVATED TEMP; Start 11/27/16 at 19:30 Atorvastatin Calcium (Lipitor) 10 mg QHS PO Last administered on 11/28/16 21:47 ; Admin Dose 10 MG; Start 11/27/16 at 21:00 Morphine Sulfate (morphine) 4 mg Q4H PRN IV PAIN Last administered on 11/29/16 11:43; Admin Dose 4 MG; Start 11/28/16 at 12:00 MICHELLE KOROMA Nov 29, 2016 12:53
[2016-11-29 15:34] VITALS: BP 106/59; RESP 20
[2016-11-29] MEDS: ATORVASTATIN 10 MG TAB PO SCH (20:24)
[2016-11-29 21:09] VITALS: BP 142/69; RESP 20
[2016-11-30] MEDS: morphine 4 MG/ML VIAL IV PRN ×3 (02:21→11:27)
[2016-11-30 02:42] VITALS: BP 110/59; RESP 18
[2016-11-30 08:47] VITALS: BP 125/73; RESP 18
--- NOTE | 2016-11-30 13:05 | DS ---
Date/Time of Note Date/Time of Note DATE: 11/30/16 TIME: 13:05 Discharge Summary Admission/Discharge Info Admit Date/Time Nov 23, 2016 at 09:52 Discharge Date/Time Nov 30, 2016 at 12:20 Discharge Diagnosis -Myelopathy with paraplegia due to cord compression, status post thoracic 10-11 laminectomy with posterolateral fusion by Dr. Castellano. Continue to follow-up surgical recommendation. Continue Decadron and [place] and morphine as needed for pain. -Chronic lymphedema -Hypertension, patient is currently normotensive. -Obesity -Status post left lower extremity partial amputation. -Constipation, resolved. Patient Condition: Stable Hospital Course This is a 61 years old male patient was admitted with c/o gait instability was found to have spinal stenosis. Patient under laminectomy and is now having postoperative care. Patient remains hemodynamically stable, however complains of back pain, dc to acute rehab today. Further recommendations based on clinical course. Plan of care discussed with Dr. Olivera. Home Meds Reported Medications Quinapril Hcl (Quinapril Hcl) 10 Mg Tablet, 10 MG PO BID, #60 TAB 06/23/16 Docusate Sodium* (Docusate Sodium*) 100 Mg Capsule, 100 MG PO BID, #60 CAP 06/23/16 Atorvastatin Calcium (Atorvastatin Calcium) 10 Mg Tablet, 10 MG PO QHS, #30 TAB 06/23/16 Hydrocodone Bit-Acetaminophen* ([place]*) 10-325 Mg Tablet, 1 TAB PO Q4H Y for PAIN, TAB 07/17/14 Enalapril Maleate* (Vasotec*) 10 Mg Tablet, 10 MG PO DAILY, TAB 07/17/14 Primary Care Provider Doris Rolle Time spent on discharge: < 30 minutes MAME SINGH Nov 30, 2016 13:05 Sennosides* (Senna Lax*) 8.6 Mg Tablet, 1 TAB PO BID, TAB 07/17/14 Primary Care Provider MAME Gonzalez Nov 30, 2016 13:05
== END 2016-11-30 12:20 | DRG 460 ==
LOC: REC 09:52 → MS1 17:29
PROVIDERS: ADMIT Neurological Surgery; ATTEND Internal Medicine
PROC: 00NX0ZZ Release Thoracic Spinal Cord, Open Approach (ICD-10-PCS; 2016-11-23)
PROC: 0RG6071 Fusion of Thoracic Vertebral Joint with Autologous Tissue Substitute, Posterior Approach, Posterior Column, Open Approach (ICD-10-PCS; principal; 2016-11-23 12:00)
DX: M48.04 Spinal stenosis, thoracic region (principal); G95.89 Other specified diseases of spinal cord; G82.20 Paraplegia, unspecified; G95.29 Other cord compression; L97.829 Non-pressure chronic ulcer of other part of left lower leg with unspecified severity; M62.522 Muscle wasting and atrophy, not elsewhere classified, left upper arm; I10 Essential (primary) hypertension; I89.0 Lymphedema, not elsewhere classified; M79.89 Other specified soft tissue disorders; K59.00 Constipation, unspecified; E66.9 Obesity, unspecified; R26.9 Unspecified abnormalities of gait and mobility; Z89.612 Acquired absence of left leg above knee; Z68.39 Body mass index [BMI] 39.0-39.9, adult; Z71.3 Dietary counseling and surveillance; Z87.828 Personal history of other (healed) physical injury and trauma
CPT/HCPCS: 72072; 74177; 80048; 80053; 80076; 85025; 85610; 85730; 86850; 86900; 86901; 86920; 87086; 88305; 88311; 93005; 93971; 97162; 97167; 97530; 97535; 97542; J0360; J0690; J1100; J1170; J2250; J2270; J2405; J2710; J3010; J7121; Q9967

== ENCOUNTER 2016-11-30 12:11 | Inpatient (IN) | payer OTHER ==
[~2016-11-30] VITALS: Ht 170.2 cm; Wt 113.4 kg
[~2016-11-30 12:11] MED LIST changes: -ASPI-664 PO; -BISA-57 PO; -DEXAMETHASONE 4 MG/ML 1 ML INJ ONE; -ONDANSETRON 4 MG INJ ONE; -SENN-53 PO; -TEMA30CA PO
[2016-11-30 13:00] VITALS: BP 121/75; RESP 20
[2016-11-30] MEDS ORDERED: ONDANSETRON 4 MG INJ IV PRN (13:14)
[2016-11-30] MEDS ORDERED: SENNA TAB PO PRN (13:14)
[2016-11-30] MEDS ORDERED: BISACODYL (EC) 5 MG TAB PO PRN (13:14)
[2016-11-30] MEDS ORDERED: ACETAMINOPHEN 325 MG TAB PO PRN (13:14)
[2016-11-30] MEDS ORDERED: [UNRECOGNIZED DRUG - REMARK] XX SCH (13:30)
[2016-11-30] MEDS: morphine 4 MG/ML VIAL IV PRN ×3 (13:50→21:28)
[2016-11-30] MEDS: HYDROCODONE/APAP (10/325) TAB PO PRN ×2 (13:56→19:35)
[2016-11-30] MEDS ORDERED: MAGNESIUM HYDROXIDE 30ML CUP PO PRN (14:00)
[2016-11-30] MEDS ORDERED: LACTULOSE 30ML CUP PO PRN (14:00)
[2016-11-30 15:59] LABS: ADD UMIC YES; UR ASCORBIC ACID NEGATIVE (NEGATIVE); UR BILIRUBIN (Dip) NEGATIVE (NEGATIVE); UR BLOOD (Dip) 2+ mg/dL (NEGATIVE); UR CLARITY CLEAR (CLEAR); UR COLOR STRAW (YELLOW); UR GLUCOSE (Dip) NEGATIVE (NEGATIVE); UR KETONES (Dip) NEGATIVE (NEGATIVE); UR LEUKOCYTE ESTERASE (Dip) NEGATIVE Leu/ul (NEGATIVE); UR NITRITE (Dip) NEGATIVE (NEGATIVE); UR RBC 1 /HPF (0-5); UR SPECIFIC GRAVITY (Dip) 1.009 (1.003-1.030); UR TOTAL PROTEIN (Dip) NEGATIVE (NEGATIVE); UR UROBILINOGEN (Dip) NEGATIVE (NEGATIVE)
[2016-11-30 19:39] VITALS: BP 98/56; PULSE 71; RESP 18
[2016-11-30 21:20] VITALS: BP 129/57; PULSE 77; RESP 18
[2016-11-30] MEDS: ATORVASTATIN 10 MG TAB PO SCH (21:26)
[2016-11-30] MEDS: DOCUSATE SODIUM 100 MG CAP PO SCH (21:27)
[2016-12-01] MEDS: HYDROCODONE/APAP (10/325) TAB PO PRN ×2 (00:21→11:44)
[2016-12-01] MEDS: morphine 4 MG/ML VIAL IV PRN ×3 (01:58→09:58)
[2016-12-01 02:00] VITALS: BP 110/62; RESP 18
[2016-12-01 07:47] LABS: BASOPHILS % 0.2 % (0.0-2.0); EOSINOPHILS # 0.2 10^3/ul (0.0-0.5); EOSINOPHILS % 2.5 % (0.0-7.0); HEMATOCRIT 34.6 % (42.0-52.0); HEMOGLOBIN 11.7 g/dl (14.0-18.0); LYMPHOCYTES # 3.1 10^3/ul (0.8-2.9); LYMPHOCYTES % 32.3 % (15.0-51.0); MEAN CORPUSCULAR HEMOGLOBIN 28.9 pg (29.0-33.0); MEAN CORPUSCULAR HGB CONC 33.8 g/dl (32.0-37.0); MEAN CORPUSCULAR VOLUME 85.4 fl (82.0-101.0); MEAN PLATELET VOLUME 9.7 fl (7.4-10.4); MONOCYTE # 0.6 10^3/ul (0.3-0.9); MONOCYTES % 6.4 % (0.0-11.0); NEUTROPHIL # 5.5 10^3/ul (1.6-7.5); NEUTROPHILS % 57.9 % (39.0-77.0); PLATELET COUNT 250 10^3/UL (140-415); RED BLOOD COUNT 4.05 10^6/ul (4.70-6.10); RED CELL DISTRIBUTION WIDTH 14.8 % (11.5-14.5); WHITE BLOOD COUNT 9.5 10^3/ul (4.8-10.8)
[2016-12-01 08:03] VITALS: BP 114/63; RESP 18
[2016-12-01 08:16] LABS: ALBUMIN 3.2 g/dl (3.3-4.9); ALBUMIN/GLOBULIN RATIO 1.14; BILIRUBIN,INDIRECT 0.2 mg/dl (0-1.1); BILIRUBIN,TOTAL 0.2 mg/dl (0.2-1.3); CALCIUM 8.7 mg/dl (8.4-10.2); CREATININE 0.71 mg/dl (0.61-1.24); POTASSIUM 4.5 mmol/L (3.5-5.1)
[2016-12-01] MEDS: DOCUSATE SODIUM 100 MG CAP PO SCH ×2 (10:01→21:19)
[2016-12-01] MEDS: ENALAPRIL 10 MG TAB PO SCH (10:01)
--- NOTE | 2016-12-01 10:07 | CONS ---
Date/Time of Note Date/Time of Note DATE: 12/01/16 TIME: 10:06 Assessment/Plan Assessment/Plan Additional Assessment/Plan REHABILITATION POST-ADMISSION PHYSICIAN EVALUATION: REHABILITATION IMPAIRMENT CATEGORY: SCI with Thoracic Myelopathy-s/p decompressive laminectomy and fusion ACTIVE COMORBIDITIES: 1.Acute pain Syndrome 2.Hypertension 3.Anemia 4. Obesity 5. history of PVD with chronic foot ulcers 6. history of Left foot transmetatarsal amputation 7. history of cervical laminectomy 8.Impairments in self-care and mobility PLAN: The patient has been admitted for comprehensive interdisciplinary acute rehab and is anticipated to tolerate 3 hours of daily therapy in divided doses for at least 5/7 days a week. The treatment plan will include: 1. Physical therapy to focus on bed mobility, transfers, and household ambulation with the goal of having the patient reach a standby assist level. 2. Occupational therapy to focus on hygiene, grooming, dressing, bathing, and toileting activities with the goal of having the patient reach a standby assist level. 3. Rehabilitation nursing for carryover of therapeutic interventions, the goal of continent of bowel and bladder, pain under adequate control, and patient and family education with regards to the aforementioned issues ESTIMATED LENGTH OF STAY: 14 days. DISPOSITION GOAL: Home. Rehabilitation Barrier: pain Intervention for barrier: interdisciplinary rehabilitation I acknowledge that I performed a full physical examination on this patient within 24 hours of admission to the rehabilitation unit and believe the patient is a good candidate for comprehensive interdisciplinary rehab care and is anticipated to make reasonable goals in a reasonable period of time as outlined above. Consultation Date/Type/Reason Admit Date/Time Nov 30, 2016 at 12:40 Hx of Present Illness Patient is a 61-year-old gentleman with a history of left transmetatarsal amputation in addition to severe thoracic stenosis with cord compression and myelopathy who underwent a decompressive laminectomy and fusion. His postoperative course has been notable for significant pain in addition to impairments in self-care and mobility as compared to baseline. Patient has been cleared to transfer to the rehabilitation unit for conference of interdisciplinary rehab care Past Medical History 1. Thoracic myelopathy with functional paraplegia 2..Hypertension 3.Anemia 4. Obesity 5. history of PVD with chronic foot ulcers 6. history of Left foot transmetatarsal amputation 7. history of cervical laminectomy FUNCTIONAL HISTORY: Prior to recent events, the patient was independent in self-care tasks and mobility at the wheelchair level Currently, patient requires maximal assist for self-care and mobility tasks. I have reviewed the preadmission screen and the patient's current functional status is consistent with the preadmission screen. SOCIAL HISTORY: The patient lives at home and hopes to return there upon discharge. Social History Smoking Status: Never smoker Exam/Review of Systems Vital Signs Vitals Vital Signs Date Time Temp Pulse Resp B/P Pulse Ox O2 Delivery O2 Flow Rate FiO2 12/01/16 08:03 98.1 77 18 114/63 96 11/30/16 21:20 Room Air Intake and Output 11/30/16 11/30/16 12/01/16 14:59 22:59 06:59 Intake Total 860 ml 750 ml Output Total 800 ml Balance 60 ml 750 ml Exam He is awake and alert and oriented 3 he will follow simple one-step commands he has antigravity strength in bilateral upper extremity and 3- strength in bilateral lower extremity Constitutional: No alert, No distress, No frail, No non-verbal, No obese, No oriented, No other, No well developed Psych: anxiety Head: No atraumatic, No hematomas, No lacerations, No normocephalic, No other Eyes: No EOMI, No PERRL, No fundi, disc, No icteric, No nl conjunctiva, No nl lids, No nl sclera, No other ENMT: No intubated, No mucosa pink and moist, No nl external ears & nose, No nl lips & teeth, No nl nasal mucosa & septum, No other, No tympanic membranes Neck: No bruits, No jvd, No masses, No non-tender, No nuchal rigidity, No other , No supple, No thyromegaly Respiratory: No clear to auscultation, No congested cough, No crackles/rales, No diminished breath sounds, No intercostal retraction, No labored breathing, No normal air movement, No other, No respirations, No tactile fremitus, No wheezing Cardiovascular: No S3, No S4, No bruits, No diastolic murmur, No edema, No gallop, No irregular rhythm, No jugular venous distention (JVD), No murmurs/ extra sounds, No nl pulses, No other, No regular rate and rhythm, No rub, No systolic murmur Gastrointestinal: No ascites, No bowel sounds, No distended, No firm, No hepatomegaly, No mass, No nl liver, spleen, No non-tender, No other, No rebound or guarding, No soft, No splenomegaly, No surgical scars, No tender Extremities: other (Lower extremity ulcers) Results Result Diagram: 12/01/16 0646 12/01/16 0646 Results 24 hrs Laboratory Tests Test 11/30/16 15:15 12/01/16 06:46 Urine Color STRAW Urine Clarity CLEAR Urine pH 6.0 Urine Specific [place] 1.009 Urine Ketones NEGATIVE Urine Nitrite NEGATIVE Urine Bilirubin NEGATIVE Urine Urobilinogen NEGATIVE Urine Leukocyte Esterase NEGATIVE Urine Microscopic RBC 1 Urine Microscopic WBC 0 Urine Hemoglobin 2+ H Urine Glucose NEGATIVE Urine Total Protein NEGATIVE White Blood Count 9.5 Red Blood Count 4.05 L Hemoglobin 11.7 L Hematocrit 34.6 L Mean Corpuscular Volume 85.4 Mean Corpuscular Hemoglobin 28.9 L Mean Corpuscular Hemoglobin Concent 33.8 Red Cell Distribution Width 14.8 H Platelet Count 250 Mean Platelet Volume 9.7 Neutrophils % 57.9 Lymphocytes % 32.3 Monocytes % 6.4 Eosinophils % 2.5 Basophils % 0.2 Nucleated Red Blood Cells % 0.0 Neutrophils # 5.5 Lymphocytes # 3.1 H Monocytes # 0.6 Eosinophils # 0.2 Basophils # 0.0 Nucleated Red Blood Cells # 0.0 Sodium Level 139 Potassium Level 4.5 Chloride Level 98 Carbon Dioxide Level 29 Anion Gap 17 H Blood Urea Nitrogen 18 Creatinine 0.71 Glucose Level 85 Calcium Level 8.7 Total Bilirubin 0.2 Direct Bilirubin 0.00 Indirect Bilirubin 0.2 Aspartate Amino Transf (AST/SGOT) 22 Alanine Aminotransferase (ALT/SGPT) 39 Alkaline Phosphatase 72 Total Protein 6.0 L Albumin 3.2 L Globulin 2.80 Albumin/Globulin Ratio 1.14 Medications Medications Current Medications Ondansetron HCl (Zofran Inj) 4 mg Q4H PRN IV NAUSEA AND/OR VOMITING; Start 02/06 at 13:14 Acetaminophen/ Hydrocodone Bitart ([place] (10/325)) 1 tab Q4H PRN PO mild to mod pain Last administered on 12/01/16t 00:21; Admin Dose 1 TAB; Start 11/30/16 at 13:14 Bisacodyl (Dulcolax) 10 mg DAILY PRN PO CONSTIPATION; Start 11/30/16 at 13:14 Senna (Senokot) 2 tab DAILY PRN PO CONSTIPATION; Start 11/30/16 at 13:14 Acetaminophen (Tylenol Tab) 650 mg Q4H PRN PO PAIN AND OR ELEVATED TEMP; Start 11/30/16 at 13:14 Atorvastatin Calcium (Lipitor) 10 mg QHS PO Last administered on 11/30/16 21: 26; Admin Dose 10 MG; Start 11/30/16 at 13:14 Morphine Sulfate (morphine) 3 mg Q3H PRN IV PAIN Last administered on 09:58; Admin Dose 3 MG; Start 11/30/16 at 13:14 Docusate Sodium (Colace) 100 mg BID PO Last administered on 12/01/16 10:01; Admin Dose 100 MG; Start 11/30/16 at 21:00 Magnesium Hydroxide (Milk Of Mag) 30 ml BID PRN PO CONSTIPATION; Start at 14:00 Lactulose (Enulose) 20 gm DAILY PRN PO CONSTIPATION; Start 11/30/16 at 14:00 Enalapril Maleate (Vasotec) 10 mg AM PO Last administered on 12/01/16 10:01; Admin Dose 10 MG; Start 12/01/16 at 09:00 SYD SANCHEZ MD Dec 01, 2016 10:07
[2016-12-01] MEDS ORDERED: morphine 4 MG/ML VIAL IV PRN (13:14)
[2016-12-01] MEDS: GABAPENTIN 100 MG CAP PO SCH ×2 (13:15→21:19)
[2016-12-01] MEDS: morphine 2 MG INJ IV PRN ×3 (16:14→22:04)
--- NOTE | 2016-12-01 16:31 | RADRPT ---
PROCEDURE: US right upper extremity veins. CLINICAL INDICATION: Right arm pain and swelling. TECHNIQUE: Multiple longitudinal and transverse images of the right upper extremity venous tree wa s obtained with encarnacion scale, pulsed Doppler, and color Doppler imaging. COMPARISON: 11/27/2016. FINDINGS: The right internal jugular, subclavian, axillary, brachial, basilic, cephalic, radial, and ulnar vei ns are patent. There is normal flow with augmentation and compressibility throughout. There is no t hrombus or occlusion. The right subclavian vein is small indicating it may have been previously thro mbosed or stenotic. IMPRESSION: 1. Small right subclavian vein. 2. Otherwise unremarkable right upper extremity venous Doppler. No evidence of thrombus or occlusio n. RPTAT: QQ .Gonsalo Christopher MD, MD Date Time Electronically viewed and signed by .Gonsalo Christopher MD, MD on 12/01/2016 16:31 .R/
--- NOTE | 2016-12-01 17:28 | CONS ---
Date/Time of Note Date/Time of Note DATE: 12/01/16 TIME: 17:27 Assessment/Plan Assessment/Plan Additional Assessment/Plan seen/examined awake/alert/follows/moves all, still having weakness lower extremities wound looks good pt allergic to plastic tape, use paper tape only good post op progress pain under controll Consultation Date/Type/Reason Admit Date/Time Nov 30, 2016 at 12:40 Initial Consult Date Exam/Review of Systems Vital Signs Vitals Vital Signs Date Time Temp Pulse Resp B/P Pulse Ox O2 Delivery O2 Flow Rate FiO2 12/01/16 08:03 98.1 77 18 114/63 96 11/30/16 21:20 Room Air Intake and Output 11/30/16 11/30/16 12/01/16 15:00 23:00 07:00 Intake Total 860 ml 750 ml Output Total 800 ml Balance 60 ml 750 ml Results Result Diagram: 12/01/16 0646 12/01/16 0646 Results 24 hrs Laboratory Tests Test 12/01/16 06:46 White Blood Count 9.5 Red Blood Count 4.05 L Hemoglobin 11.7 L Hematocrit 34.6 L Mean Corpuscular Volume 85.4 Mean Corpuscular Hemoglobin 28.9 L Mean Corpuscular Hemoglobin Concent 33.8 Red Cell Distribution Width 14.8 H Platelet Count 250 Mean Platelet Volume 9.7 Neutrophils % 57.9 Lymphocytes % 32.3 Monocytes % 6.4 Eosinophils % 2.5 Basophils % 0.2 Nucleated Red Blood Cells % 0.0 Neutrophils # 5.5 Lymphocytes # 3.1 H Monocytes # 0.6 Eosinophils # 0.2 Basophils # 0.0 Nucleated Red Blood Cells # 0.0 Sodium Level 139 Potassium Level 4.5 Chloride Level 98 Carbon Dioxide Level 29 Anion Gap 17 H Blood Urea Nitrogen 18 Creatinine 0.71 Glucose Level 85 Calcium Level 8.7 Total Bilirubin 0.2 Direct Bilirubin 0.00 Indirect Bilirubin 0.2 Aspartate Amino Transf (AST/SGOT) 22 Alanine Aminotransferase (ALT/SGPT) 39 Alkaline Phosphatase 72 Total Protein 6.0 L Albumin 3.2 L Globulin 2.80 Albumin/Globulin Ratio 1.14 Medications Medications Current Medications Ondansetron HCl (Zofran Inj) 4 mg Q4H PRN IV NAUSEA AND/OR VOMITING; Start 02/06 at 13:14 Acetaminophen/ Hydrocodone Bitart ([place] (10/325)) 1 tab Q4H PRN PO mild to mod pain Last administered on 12/01/16 11:44; Admin Dose 1 TAB; Start 11/30/16 at 13:14 Bisacodyl (Dulcolax) 10 mg DAILY PRN PO CONSTIPATION; Start 11/30/16 at 13:14 Senna (Senokot) 2 tab DAILY PRN PO CONSTIPATION; Start 11/30/16 at 13:14 Acetaminophen (Tylenol Tab) 650 mg Q4H PRN PO PAIN AND OR ELEVATED TEMP; Start 11/30/16 at 13:14 Atorvastatin Calcium (Lipitor) 10 mg QHS PO Last administered on 11/30/16 21: 26; Admin Dose 10 MG; Start 11/30/16 at 13:14 Docusate Sodium (Colace) 100 mg BID PO Last administered on 12/01/16 10:01; Admin Dose 100 MG; Start 11/30/16 at 21:00 Magnesium Hydroxide (Milk Of Mag) 30 ml BID PRN PO CONSTIPATION; Start at 14:00 Lactulose (Enulose) 20 gm DAILY PRN PO CONSTIPATION; Start 11/30/16 at 14:00 Enalapril Maleate (Vasotec) 10 mg AM PO Last administered on 12/01/16 10:01; Admin Dose 10 MG; Start 12/01/16 at 09:00 Gabapentin (Neurontin) 100 mg TID PO Last administered on 12/01/16 13:15; Admin Dose 100 MG; Start 12/01/16 at 13:00 Morphine Sulfate (morphine) 2 mg Q2H PRN IV PAIN Last administered on 16:14; Admin Dose 2 MG; Start 12/01/16 at 15:00 SHERLY ROGERS PA-C Dec 01, 2016 17:28
--- NOTE | 2016-12-01 17:56 | HP ---
Date/Time of Note Date/Time of Note DATE: 12/01/16 TIME: 17:55 Assessment/Plan VTE Prophylaxis VTE Prophylaxis Intervention: anti-embolic stocking Lines/Catheters IV Catheter Type (from Nrs): Peripheral IV Urinary Cath still in place: No Assessment/Plan Chief Complaint/Hosp Course Assessment/Plan -Myelopathy with paraplegia due to cord compression, status post thoracic 10-11 laminectomy with posterolateral fusion by Dr. Castellano. Continue [place] as needed for pain. Continue PT/OT. -Chronic lymphedema -Hypertension, patient is currently normotensive. -Obesity -Status post left lower extremity partial amputation. Further recommendations based on clinical course. Plan of care discussed with Dr. Olivera. Problems: HPI/ROS Admit Date/Time Admit Date/Time Nov 30, 2016 at 12:40 Hx of Present Illness The patient is a 61-year-old male with obesity, HTN, chronic lymphedema, s/p multiple LLE surgeries, s/p LLE partial amputation. 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 The patient has failed outpatient therapy and has failed conservative management. Patient underwent thoracic 10-11 laminectomy with posterolateral fusion by Dr. Castellano. Postoperatively, patient experienced pain and has slow progress with PT. Patient is admitted to acute rehab for further management and therapy. ROS negative unless what mentioned in HPI. Psychological: anxiety PMH/Family/Social Past Medical History per HPI Medical History: hypertension Past Surgical History per HPI Family History Significant Family History: no pertinent family hx Social History Alcohol Use: none Smoking Status: Former smoker Drug Use: none Exam/Review of Systems Vital Signs Vitals Vital Signs Date Time Temp Pulse Resp B/P Pulse Ox O2 Delivery O2 Flow Rate FiO2 12/01/16 08:03 98.1 77 18 114/63 96 11/30/16 21:20 Room Air Intake and Output 11/30/16 11/30/16 12/01/16 15:00 23:00 07:00 Intake Total 860 ml 750 ml Output Total 800 ml Balance 60 ml 750 ml Exam Constitutional: alert, oriented Psych: no complaints Head: normocephalic Neck: supple Respiratory: normal air movement Cardiovascular: nl pulses Gastrointestinal: non-tender, soft Extremities: other (Right upper and lower extremities lymphedema, left lower extremity status post partial amputation) Neurological: nl mental status Labs Result Diagram: 12/01/16 0646 12/01/16 0646 Medications Medications Current Medications Ondansetron HCl (Zofran Inj) 4 mg Q4H PRN IV NAUSEA AND/OR VOMITING; Start 02/06 at 13:14 Acetaminophen/ Hydrocodone Bitart ([place] (10/325)) 1 tab Q4H PRN PO mild to mod pain Last administered on 12/01/16 11:44; Admin Dose 1 TAB; Start 11/30/16 at 13:14 Bisacodyl (Dulcolax) 10 mg DAILY PRN PO CONSTIPATION; Start 11/30/16 at 13:14 Senna (Senokot) 2 tab DAILY PRN PO CONSTIPATION; Start 11/30/16 at 13:14 Acetaminophen (Tylenol Tab) 650 mg Q4H PRN PO PAIN AND OR ELEVATED TEMP; Start 11/30/16 at 13:14 Atorvastatin Calcium (Lipitor) 10 mg QHS PO Last administered on 11/30/16 21: 26; Admin Dose 10 MG; Start 11/30/16 at 13:14 Docusate Sodium (Colace) 100 mg BID PO Last administered on 12/01/16 10:01; Admin Dose 100 MG; Start 11/30/16 at 21:00 Magnesium Hydroxide (Milk Of Mag) 30 ml BID PRN PO CONSTIPATION; Start at 14:00 Lactulose (Enulose) 20 gm DAILY PRN PO CONSTIPATION; Start 11/30/16 at 14:00 Enalapril Maleate (Vasotec) 10 mg AM PO Last administered on 12/01/16 10:01; Admin Dose 10 MG; Start 12/01/16 at 09:00 Gabapentin (Neurontin) 100 mg TID PO Last administered on 12/01/16 13:15; Admin Dose 100 MG; Start 12/01/16 at 13:00 Morphine Sulfate (morphine) 2 mg Q2H PRN IV PAIN Last administered on 16:14; Admin Dose 2 MG; Start 12/01/16 at 15:00 MICHELLE KOROMA Dec 01, 2016 17:56
[2016-12-01 20:00] VITALS: BP 110/58; PULSE 70; RESP 18
[2016-12-01] MEDS: ATORVASTATIN 10 MG TAB PO SCH (21:19)
[2016-12-02] MEDS: morphine 2 MG INJ IV PRN ×8 (01:52→23:42)
[2016-12-02 02:00] VITALS: BP 118/68; RESP 18
[2016-12-02 07:30] VITALS: BP 128/73; RESP 20
[2016-12-02] MEDS: GABAPENTIN 100 MG CAP PO SCH ×3 (09:18→20:46)
[2016-12-02] MEDS: DOCUSATE SODIUM 100 MG CAP PO SCH ×2 (09:18→20:46)
[2016-12-02] MEDS: ENALAPRIL 10 MG TAB PO SCH (09:19)
[2016-12-02] MEDS: HYDROCODONE/APAP (10/325) TAB PO PRN ×2 (09:19→21:09)
--- NOTE | 2016-12-02 11:23 | PN ---
Date/Time of Note Date/Time of Note DATE: 12/02/16 TIME: 11:16 Assessment/Plan VTE Prophylaxis VTE Prophylaxis Intervention: other Lines/Catheters IV Catheter Type (from Nrsg): Saline Lock Urinary Cath still in place: No Assessment/Plan Assessment/Plan 1. 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 Continue PT/OT. Min assist for transfers, min to mod assist for bed mobility. Surgical site care. Followed by spine surgeon. 2.Acute post op pain syndrome in addition to chronic pain syndrome. Nursing attempting to find peripheral IV access at this time. In the meantime, will add 2 tabs of norco 10/325mg q6h prn severe breakthrough pain. Will adjust PO regimen further as needed. 3.Hypertension. BP controlled. Continue medical management. 4.Anemia. Monitor hemoglobin/hematocrit, stable. 5. Obesity 6. Peripheral vascular disease with chronic foot ulcers, history of left TMA. Continue medical management. 7. History of cervical laminectomy 8. Chronic lymphedema. 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 Continue contact isolation. Subjective 24 Hr Interval Summary Free Text/Dictation Rehab progress note Subjective: Reports significant pain in mid back region, nursing reports peripheral line not working to give IV morphine and currently attempting to insert new peripheral line. ROS: Denies chest pain, no shortness of breath, no abdominal pain, no nausea or vomiting, no chills, no constipation, no new weakness or new paresthesias. Exam/Review of Systems Vital Signs Vitals Vital Signs Date Time Temp Pulse Resp B/P Pulse Ox O2 Delivery O2 Flow Rate FiO2 12/02/16 07:30 98.1 70 20 128/73 96 12/01/16 20:00 Room Air Intake and Output 12/01/16 12/01/16 12/02/16 15:00 23:00 07:00 Intake Total 760 ml 360 ml 300 ml Output Total 1100 ml 1000 ml Balance 760 ml -740 ml -700 ml Exam General: Awake, alert, no acute distress, obese CV: Regular rate, s1s2 audible Lungs: Clear to auscultation anteriorly, no wheezing Abdomen soft, nontender, +bowel sounds Extremities: +Edema. Neuro: No apparent focal changes. Paraparesis. Good cross cut sawyer strength. Follow simple commands. Results Result Diagram: 12/01/1646 12/01/1646 Medications Medications Current Medications Ondansetron HCl (Zofran Inj) 4 mg Q4H PRN IV NAUSEA AND/OR VOMITING; Start 02/06 at 13:14 Acetaminophen/ Hydrocodone Bitart ([place] (10/325)) 1 tab Q4H PRN PO mild to mod pain Last administered on 12/02/16 09:19; Admin Dose 1 TAB; Start 11/30/16 at 13:14 Bisacodyl (Dulcolax) 10 mg DAILY PRN PO CONSTIPATION; Start 11/30/16 at 13:14 Senna (Senokot) 2 tab DAILY PRN PO CONSTIPATION; Start 11/30/16 at 13:14 Acetaminophen (Tylenol Tab) 650 mg Q4H PRN PO PAIN AND OR ELEVATED TEMP; Start 11/30/16 at 13:14 Atorvastatin Calcium (Lipitor) 10 mg QHS PO Last administered on 12/01/16 21: 19; Admin Dose 10 MG; Start 11/30/16 at 13:14 Docusate Sodium (Colace) 100 mg BID PO Last administered on 12/02/16 09:18; Admin Dose 100 MG; Start 11/30/16 at 21:00 Magnesium Hydroxide (Milk Of Mag) 30 ml BID PRN PO CONSTIPATION; Start at 14:00 Lactulose (Enulose) 20 gm DAILY PRN PO CONSTIPATION; Start 11/30/16 at 14:00 Enalapril Maleate (Vasotec) 10 mg AM PO Last administered on 12/02/16 09:19; Admin Dose 10 MG; Start 12/01/16 at 09:00 Gabapentin (Neurontin) 100 mg TID PO Last administered on 12/02/16 09:18; Admin Dose 100 MG; Start 12/01/16 at 13:00 Morphine Sulfate (morphine) 2 mg Q2H PRN IV PAIN Last administered on 09:57; Admin Dose 2 MG; Start 12/01/16 at 15:00 Mupirocin (Bactroban) 1 applic BID TOP ; Start 12/02/16 at 10:30; Stop 12/10/16 at 08:55 Acetaminophen/ Hydrocodone Bitart ([place] (10/325)) 2 tab Q6H PRN PO Severe pain ; Start 12/02/16 at 11:30 Acetaminophen/ Hydrocodone Bitart ([place] (10/325)) 1 tab ONCE ONCE PO ; Start 12/02/16 at 11:30; Stop 12/02/16 at 11:31; Status TIM WEBER Dec 02, 2016 11:23
[2016-12-02] MEDS ORDERED: HYDROCODONE/APAP (10/325) TAB PO ONE (11:30)
[2016-12-02] MEDS ORDERED: morphine 2 MG INJ IV STA (11:33)
[2016-12-02] MEDS: MUPIROCIN 2% 22 GM OINT TOP SCH ×2 (13:35→20:47)
[2016-12-02 14:00] VITALS: BP 121/64; RESP 20
[2016-12-02 19:30] VITALS: BP 116/71; RESP 19
--- NOTE | 2016-12-02 19:47 | PN ---
Date/Time of Note Date/Time of Note DATE: 12/02/16 TIME: 19:01 Assessment/Plan VTE Prophylaxis VTE Prophylaxis Intervention: other Lines/Catheters IV Catheter Type (from Nrsg): Saline Lock Urinary Cath still in place: No Assessment/Plan Assessment/Plan - left abdominal pain, without nausea/vomitting - stat EKG - STAT CXR - STAT abd/pelvis CT scan - fu results - MRSA Nares- Bactroban, contact isolation - constipation- resolved -Myelopathy with paraplegia due to cord compression, status post thoracic 10-11 laminectomy with posterolateral fusion by Dr. Castellano. - Continue [place] as needed for pain. Continue PT/OT. -Chronic lymphedema -Hypertension, patient is currently normotensive. -Obesity - weight managment -Status post left lower extremity partial amputation. - Further recommendations based on clinical course. Plan of care discussed with Dr. Olivera. Subjective 24 Hr Interval Summary Free Text/Dictation c/o left sided abdominal pain, denies any nausea/vomitting. denies any chest pain, dizziness, palpitations, afebrile, dw staff Respiratory: no complaints Cardiovascular: no complaints Gastrointestinal: pain Genitourinary: no complaints Musculoskeletal: bone/joint pain, no complaints Skin: other Neurologic: no complaints Exam/Review of Systems Vital Signs Vitals Vital Signs Date Time Temp Pulse Resp B/P Pulse Ox O2 Delivery O2 Flow Rate FiO2 12/02/16 14:00 98.4 77 20 121/64 95 12/01/16 20:00 Room Air Intake and Output 12/01/16 12/01/16 12/02/16 15:00 23:00 07:00 Intake Total 760 ml 360 ml 300 ml Output Total 1100 ml 1000 ml Balance 760 ml -740 ml -700 ml Exam Constitutional: alert, obese, oriented Respiratory: diminished breath sounds Cardiovascular: nl pulses, regular rate and rhythm Gastrointestinal: soft, tender (LUQ tenderness ) Musculoskeletal: other (BLE lymphedema, LLE sp partial amputation- DDI) Extremities: edema Neurological: nl mental status, nl speech Skin: other Results Result Diagram: 12/01/16 0646 12/01/16 0646 Medications Medications Current Medications Ondansetron HCl (Zofran Inj) 4 mg Q4H PRN IV NAUSEA AND/OR VOMITING; Start 02/06 at 13:14 Acetaminophen/ Hydrocodone Bitart ([place] (10/325)) 1 tab Q4H PRN PO mild to mod pain Last administered on 12/02/16 09:19; Admin Dose 1 TAB; Start 11/30/16 at 13:14 Bisacodyl (Dulcolax) 10 mg DAILY PRN PO CONSTIPATION; Start 11/30/16 at 13:14 Senna (Senokot) 2 tab DAILY PRN PO CONSTIPATION; Start 11/30/16 at 13:14 Acetaminophen (Tylenol Tab) 650 mg Q4H PRN PO PAIN AND OR ELEVATED TEMP; Start 11/30/16 at 13:14 Atorvastatin Calcium (Lipitor) 10 mg QHS PO Last administered on 12/01/16 21: 19; Admin Dose 10 MG; Start 11/30/16 at 13:14 Docusate Sodium (Colace) 100 mg BID PO Last administered on 12/02/16 09:18; Admin Dose 100 MG; Start 11/30/16 at 21:00 Magnesium Hydroxide (Milk Of Mag) 30 ml BID PRN PO CONSTIPATION; Start at 14:00 Lactulose (Enulose) 20 gm DAILY PRN PO CONSTIPATION; Start 11/30/16 at 14:00 Enalapril Maleate (Vasotec) 10 mg AM PO Last administered on 12/02/16 09:19; Admin Dose 10 MG; Start 12/01/16 at 09:00 Gabapentin (Neurontin) 100 mg TID PO Last administered on 12/02/16 13:35; Admin Dose 100 MG; Start 12/01/16 at 13:00 Morphine Sulfate (morphine) 2 mg Q2H PRN IV PAIN Last administered on 17:29; Admin Dose 2 MG; Start 12/01/16 at 15:00 Mupirocin (Bactroban) 1 applic BID TOP Last administered on 12/02/16 13:35; Admin Dose 1 APPLIC; Start 12/02/16 at 10:30; Stop 12/10/16 at 08:55 Acetaminophen/ Hydrocodone Bitart ([place] (10/325)) 2 tab Q6H PRN PO Severe pain ; Start 12/02/16 at 11:30 MAME SINGH Dec 02, 2016 19:11
[2016-12-02] MEDS ORDERED: BARIUM SULF 2% 450 ML BTL (BERRY SMOOTHIE) PO ONE (20:00)
[2016-12-02] MEDS: ATORVASTATIN 10 MG TAB PO SCH (20:46)
[2016-12-02 21:00] LABS: BASOPHILS % 0.2 % (0.0-2.0); EOSINOPHILS # 0.2 10^3/ul (0.0-0.5); EOSINOPHILS % 2.2 % (0.0-7.0); HEMATOCRIT 35.3 % (42.0-52.0); HEMOGLOBIN 11.6 g/dl (14.0-18.0); LYMPHOCYTES # 2.5 10^3/ul (0.8-2.9); LYMPHOCYTES % 25.8 % (15.0-51.0); MEAN CORPUSCULAR HEMOGLOBIN 28.5 pg (29.0-33.0); MEAN CORPUSCULAR HGB CONC 32.9 g/dl (32.0-37.0); MEAN CORPUSCULAR VOLUME 86.7 fl (82.0-101.0); MEAN PLATELET VOLUME 9.5 fl (7.4-10.4); MONOCYTE # 0.9 10^3/ul (0.3-0.9); NEUTROPHIL # 6.1 10^3/ul (1.6-7.5); NEUTROPHILS % 62.2 % (39.0-77.0); PLATELET COUNT 270 10^3/UL (140-415); RED BLOOD COUNT 4.07 10^6/ul (4.70-6.10); RED CELL DISTRIBUTION WIDTH 15.3 % (11.5-14.5); WHITE BLOOD COUNT 9.7 10^3/ul (4.8-10.8)
[2016-12-02 21:19] LABS: CALCIUM 8.7 mg/dl (8.4-10.2); CREATININE 0.83 mg/dl (0.61-1.24); POTASSIUM 4.5 mmol/L (3.5-5.1)
[2016-12-02] MEDS ORDERED: BISACODYL 10 MG SUPP PR PRN (22:30)
--- NOTE | 2016-12-03 00:06 | RADRPT ---
PROCEDURE: CT ABDOMEN AND PELVIS WITHOUT CONTRAST: CLINICAL INDICATION: 61 years of age, male , abdominal pain. COMPARISON: November 26, 2016 TECHNIQUE: CT of the abdomen, and pelvis was performed without intravenous contrast. Oral contrast w as administered prior to the examination. Coronal and sagittal reformatted images were obtained from the axial source images. Images were revi ewed on a high-resolution PACS workstation. Dose information: Based on a 32 cm phantom, the estimated radiation dose (CTDI vol mGy) for each ser ies in this exam is 23 . The estimated cumulative dose (DLP mGy-cm) is 1324 . FINDINGS: In the absence of intravenous contrast, the study constitutes a limited assessment of the solid orga ns and vessels. LUNG BASES: There is hyperdense nodularity with tree in bud branching structures of bilateral lung b ases concerning for bronchiolitis that is unchanged from prior exam. ABDOMEN/PELVIS: Liver: Normal. Gallbladder: Status post cholecystectomy. Bile ducts: No intrahepatic or extrahepatic biliary duct dilatation. Spleen: Normal. Pancreas: Normal. Adrenal glands: Normal. Kidneys and ureters: Left renal parenchymal hypodensities likely represent cysts. Negative for urina ry calculi or hydronephrosis. Aorta and IVC: Mild atherosclerosis. No aneurysm. Lymph nodes: Normal. Gastrointestinal tract: There is hyperdense material in the wall of the anus presumably from prior i ntervention possibly for hemorrhoids. Few scattered colonic diverticula without diverticulitis. [place] el loops are decompressed. Appendix: Normal Bladder: Normal. Pelvic Organs: Normal. Peritoneal cavity: No free fluid or free intraperitoneal air. Abdominal wall: Body wall edema and edema extending into bilateral findings. BONES: Musculoskeletal: There are multilevel degenerative changes in the spine. There has been laminectom y for posterior decompression in the lower thoracic spine with un-incorporated bone graft at the fac et joints. There is multilevel severe spinal canal stenosis in the lumbar spine due to a congenitall y narrow spinal canal and degenerative changes No suspicious bone lesions. IMPRESSION: Negative for an acute abnormality to explain abdominal pain. Hyperdense nodularity at bilateral lung bases suggest small airways disease with bronchiolitis that is unchanged from prior exam. Status post multilevel posterior decompression in the lower thoracic spine. 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 RPTAT: HCTS Rehana Zavaleta, Physician Date Time Electronically viewed and signed by Rehana Zavaleta, Physician on 12/03/2016 00:05 /
--- NOTE | 2016-12-03 00:08 | RADRPT ---
PROCEDURE: Portable chest x-ray. CLINICAL INDICATION: 61-year-old male. Pain. TECHNIQUE: Portable AP view of the chest. COMPARISON: None FINDINGS: Enlarged cardiopericardial silhouette. Mediastinal contours are otherwise normal. Streaky linear opacity left upper lung zone likely represents scar possibly from old healed mycobact erial infection. There is fine nodularity at bilateral lung bases. Negative for pleural effusion or pneumothorax.. No acute bony abnormality. IMPRESSION: Streaky linear opacity left upper lung zone likely represents scar possibly from old healed granulom atous infection. Nodularity at bilateral lung bases corresponds to small airways disease with presu med bronchiolitis on recent CT. RPTAT: HCTS Physician Juan Date Time Electronically viewed and signed by Rehana Zavaleta Physician on 12/03/2016 00:07 /
[2016-12-03] MEDS: morphine 2 MG INJ IV PRN ×9 (01:46→22:16)
[2016-12-03 02:00] VITALS: BP 95/59; RESP 19
[2016-12-03] MEDS ORDERED: morphine 4 MG/ML VIAL IV PRN (04:00)
[2016-12-03] MEDS ORDERED: morphine 4 MG/ML VIAL ONE (05:43)
[2016-12-03 07:06] LABS: BASOPHILS % 0.2 % (0.0-2.0); EOSINOPHILS # 0.2 10^3/ul (0.0-0.5); EOSINOPHILS % 2.5 % (0.0-7.0); HEMATOCRIT 34.2 % (42.0-52.0); HEMOGLOBIN 11.3 g/dl (14.0-18.0); LYMPHOCYTES # 2.3 10^3/ul (0.8-2.9); LYMPHOCYTES % 25.1 % (15.0-51.0); MEAN CORPUSCULAR HEMOGLOBIN 28.5 pg (29.0-33.0); MEAN CORPUSCULAR VOLUME 86.1 fl (82.0-101.0); MEAN PLATELET VOLUME 9.6 fl (7.4-10.4); MONOCYTE # 0.8 10^3/ul (0.3-0.9); MONOCYTES % 8.5 % (0.0-11.0); NEUTROPHIL # 5.7 10^3/ul (1.6-7.5); NEUTROPHILS % 63.1 % (39.0-77.0); PLATELET COUNT 247 10^3/UL (140-415); RED BLOOD COUNT 3.97 10^6/ul (4.70-6.10); RED CELL DISTRIBUTION WIDTH 15.1 % (11.5-14.5); WHITE BLOOD COUNT 9.1 10^3/ul (4.8-10.8)
[2016-12-03 07:24] LABS: CALCIUM 8.4 mg/dl (8.4-10.2); CREATININE 0.76 mg/dl (0.61-1.24); POTASSIUM 3.9 mmol/L (3.5-5.1)
[2016-12-03 08:00] VITALS: BP 127/88; PULSE 86; RESP 20
[2016-12-03] MEDS: DOCUSATE SODIUM 100 MG CAP PO SCH ×2 (08:53→20:04)
[2016-12-03] MEDS: GABAPENTIN 100 MG CAP PO SCH ×3 (08:53→20:05)
[2016-12-03] MEDS: HYDROCODONE/APAP (10/325) TAB PO PRN ×2 (08:53→11:19)
[2016-12-03] MEDS: MUPIROCIN 2% 22 GM OINT TOP SCH ×2 (08:53→20:04)
[2016-12-03] MEDS: ENALAPRIL 10 MG TAB PO SCH (09:10)
--- NOTE | 2016-12-03 10:29 | PN ---
Date/Time of Note Date/Time of Note DATE: 12/03/16 TIME: 10:23 Assessment/Plan VTE Prophylaxis VTE Prophylaxis Intervention: other Lines/Catheters IV Catheter Type (from Nrsg): Saline Lock Urinary Cath still in place: No Assessment/Plan Assessment/Plan 1. 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 Continue PT/OT. SPV for grooming. SPV for wheelchair mobility. Surgical site care. Followed by spine surgeon. 2.Acute post op pain syndrome in addition to chronic pain syndrome. Will increase neurontin dosing for neuropathic pain component. Monitor for sedation. Continue prn norco and morphine. Monitor pain levels closely and adjust regimen further as needed. 3. Abdominal pain. CT abdomen without acute findings. Continue bowel regimen to avoid constipation. Will defer further work up and medical management per internal medicine. 4.Hypertension. Continue medical management per internal medicine. 5.Anemia. Monitor hemoglobin/hematocrit. 6. Obesity 7. Peripheral vascular disease with chronic foot ulcers, history of left TMA. Continue medical management. 8. History of cervical laminectomy 9. Chronic lymphedema. 10. MRSA Nares. Continue treatment. Continue contact isolation. 35 minutes spent on encounter, greater than 50% face to face time with patient, counseling and discussion of plan of care and in coordination of patient care. Discussed with nursing staff. Subjective 24 Hr Interval Summary Free Text/Dictation Rehab progress note Subjective: Patient reports continued significant pain in back, IV morphine provides short term pain relief. He also reports pain in left upper abdomen. ROS: Denies constipation, no dysuria, no chills, no nausea or vomiting, no shortness of breath, no chest pain, no new weakness or new paresthesias. Exam/Review of Systems Vital Signs Vitals Vital Signs Date Time Temp Pulse Resp B/P Pulse Ox O2 Delivery O2 Flow Rate FiO2 12/03/16 02:00 98.1 68 19 95/59 97 12/01/16 20:00 Room Air Intake and Output 12/02/16 12/02/16 12/03/16 15:00 23:00 07:00 Intake Total 1170 ml 750 ml Output Total 460 ml 1401 ml Balance 710 ml -651 ml Exam General: Awake, alert, no acute distress CV: Regular rate, s1s2 Lungs: Respirations are nonlabored, no wheezing Abdomen soft, obese, +bowel sounds, no rebound or guarding, tenderness to palpation LUQ Extremities:+Edema Neuro: No focal changes. Results Result Diagram: 12/03/16 0605 12/03/16 0605 Results 24 hrs Laboratory Tests Test 12/02/16 20:05 12/03/16 06:05 White Blood Count 9.7 9.1 Red Blood Count 4.07 L 3.97 L Hemoglobin 11.6 L 11.3 L Hematocrit 35.3 L 34.2 L Mean Corpuscular Volume 86.7 86.1 Mean Corpuscular Hemoglobin 28.5 L 28.5 L Mean Corpuscular Hemoglobin Concent 32.9 33.0 Red Cell Distribution Width 15.3 H 15.1 H Platelet Count 270 247 Mean Platelet Volume 9.5 9.6 Neutrophils % 62.2 63.1 Lymphocytes % 25.8 25.1 Monocytes % 9.0 8.5 Eosinophils % 2.2 2.5 Basophils % 0.2 0.2 Nucleated Red Blood Cells % 0.0 0.0 Neutrophils # 6.1 5.7 Lymphocytes # 2.5 2.3 Monocytes # 0.9 0.8 Eosinophils # 0.2 0.2 Basophils # 0.0 0.0 Nucleated Red Blood Cells # 0.0 0.0 Sodium Level 133 L 136 Potassium Level 4.5 3.9 Chloride Level 96 L 97 Carbon Dioxide Level 30 28 Anion Gap 12 15 Blood Urea Nitrogen 19 18 Creatinine 0.83 0.76 Glucose Level 111 146 Calcium Level 8.7 8.4 Medications Medications Current Medications Ondansetron HCl (Zofran Inj) 4 mg Q4H PRN IV NAUSEA AND/OR VOMITING; Start 02/06 at 13:14 Acetaminophen/ Hydrocodone Bitart ([place] (10/325)) 1 tab Q4H PRN PO mild to mod pain Last administered on 12/02/16t 09:19; Admin Dose 1 TAB; Start 11/30/16 at 13:14 Bisacodyl (Dulcolax) 10 mg DAILY PRN PO CONSTIPATION; Start 11/30/16 at 13:14 Senna (Senokot) 2 tab DAILY PRN PO CONSTIPATION; Start 11/30/16 at 13:14 Acetaminophen (Tylenol Tab) 650 mg Q4H PRN PO PAIN AND OR ELEVATED TEMP; Start 11/30/16 at 13:14 Atorvastatin Calcium (Lipitor) 10 mg QHS PO Last administered on 12/02/16 20: 46; Admin Dose 10 MG; Start 11/30/16 at 13:14 Docusate Sodium (Colace) 100 mg BID PO Last administered on 12/03/16 08:53; Admin Dose 100 MG; Start 11/30/16 at 21:00 Magnesium Hydroxide (Milk Of Mag) 30 ml BID PRN PO CONSTIPATION; Start at 14:00 Lactulose (Enulose) 20 gm DAILY PRN PO CONSTIPATION Last administered on 09:10; Admin Dose 20 GM; Start 11/30/16 at 14:00 Enalapril Maleate (Vasotec) 10 mg AM PO Last administered on 12/03/16 09:10; Admin Dose 10 MG; Start 12/01/16 at 09:00 Morphine Sulfate (morphine) 2 mg Q2H PRN IV PAIN Last administered on 08:52; Admin Dose 2 MG; Start 12/01/16 at 15:00 Mupirocin (Bactroban) 1 applic BID TOP Last administered on 12/03/16 08:53; Admin Dose 1 APPLIC; Start 12/02/16 at 10:30; Stop 12/10/16 at 08:55 Acetaminophen/ Hydrocodone Bitart ([place] (10/325)) 2 tab Q6H PRN PO Severe pain Last administered on 12/03/16 08:53; Admin Dose 2 TAB; Start 12/02/16 at 11:30 Bisacodyl (Dulcolax Supp) 10 mg DAILY PRN [place] CONSTIPATION Last administered on 12/02/16 22:20; Admin Dose 10 MG; Start 12/02/16 at 22:30 Gabapentin (Neurontin) 200 mg TID PO ; Start 12/03/16 at 13:00; Status TIM WEBER Dec 03, 2016 10:29
--- NOTE | 2016-12-03 13:26 | PN ---
Date/Time of Note Date/Time of Note DATE: 12/03/16 TIME: 13:16 Assessment/Plan VTE Prophylaxis VTE Prophylaxis Intervention: other Lines/Catheters [facility] Saline Lock Urinary Cath still in place: No Assessment/Plan Assessment/Plan - left abdominal pain- resolved. no nausea/vomitting - STAT CXR- showed - STAT abd/pelvis CT scan - negative - MRSA Nares- Bactroban, contact isolation -Myelopathy with paraplegia due to cord compression, status post thoracic 10-11 laminectomy with posterolateral fusion by Dr. Castellano. - Continue [place] as needed for pain. Continue PT/OT. -Chronic lymphedema -Hypertension, patient is currently normotensive. -Obesity - weight management -Status post left lower extremity partial amputation. Further recommendations based on clinical course. Plan of care discussed with Dr. Olivera. c/o left sided abdominal pain, denies any nausea/vomitting. denies any chest pain, dizziness, palpitations, afebrile, dw staff Subjective 24 Hr Interval Summary Free Text/Dictation resting, afebrile, abdominal pain is improved. denies any nausea/vomit, dw staff. Respiratory: no complaints Cardiovascular: no complaints Gastrointestinal: other (improved ) Genitourinary: no complaints Musculoskeletal: no complaints Neurologic: other Exam/Review of Systems Vital Signs Vitals Vital Signs Date Time Temp Pulse Resp B/P Pulse Ox O2 Delivery O2 Flow Rate FiO2 12/03/16 02:00 98.1 68 19 95/59 97 12/01/16 20:00 Room Air Intake and Output 12/02/16 12/02/16 12/03/16 15:00 23:00 07:00 Intake Total 1170 ml 750 ml Output Total 460 ml 1401 ml Balance 710 ml -651 ml Exam Constitutional: alert, obese, oriented Respiratory: diminished breath sounds Cardiovascular: nl pulses, regular rate and rhythm Gastrointestinal: non-tender, soft Musculoskeletal: swelling Extremities: edema Neurological: nl mental status, nl speech, other (Myelopathy with paraplegia ) Results Result Diagram: 12/03/16 0605 12/03/16 0605 Results 24 hrs Laboratory Tests Test 12/02/16 20:05 12/03/16 06:05 White Blood Count 9.7 9.1 Red Blood Count 4.07 L 3.97 L Hemoglobin 11.6 L 11.3 L Hematocrit 35.3 L 34.2 L Mean Corpuscular Volume 86.7 86.1 Mean Corpuscular Hemoglobin 28.5 L 28.5 L Mean Corpuscular Hemoglobin Concent 32.9 33.0 Red Cell Distribution Width 15.3 H 15.1 H Platelet Count 270 247 Mean Platelet Volume 9.5 9.6 Neutrophils % 62.2 63.1 Lymphocytes % 25.8 25.1 Monocytes % 9.0 8.5 Eosinophils % 2.2 2.5 Basophils % 0.2 0.2 Nucleated Red Blood Cells % 0.0 0.0 Neutrophils # 6.1 5.7 Lymphocytes # 2.5 2.3 Monocytes # 0.9 0.8 Eosinophils # 0.2 0.2 Basophils # 0.0 0.0 Nucleated Red Blood Cells # 0.0 0.0 Sodium Level 133 L 136 Potassium Level 4.5 3.9 Chloride Level 96 L 97 Carbon Dioxide Level 30 28 Anion Gap 12 15 Blood Urea Nitrogen 19 18 Creatinine 0.83 0.76 Glucose Level 111 146 Calcium Level 8.7 8.4 Medications Medications Current Medications Ondansetron HCl (Zofran Inj) 4 mg Q4H PRN IV NAUSEA AND/OR VOMITING; Start 02/06 at 13:14 Acetaminophen/ Hydrocodone Bitart ([place] (10/325)) 1 tab Q4H PRN PO mild to mod pain Last administered on 12/03/16 11:19; Admin Dose 1 TAB; Start 11/30/16 at 13:14 Bisacodyl (Dulcolax) 10 mg DAILY PRN PO CONSTIPATION; Start 11/30/16 at 13:14 Senna (Senokot) 2 tab DAILY PRN PO CONSTIPATION; Start 11/30/16 at 13:14 Acetaminophen (Tylenol Tab) 650 mg Q4H PRN PO PAIN AND OR ELEVATED TEMP; Start 11/30/16 at 13:14 Atorvastatin Calcium (Lipitor) 10 mg QHS PO Last administered on 12/02/16 20: 46; Admin Dose 10 MG; Start 11/30/16 at 13:14 Docusate Sodium (Colace) 100 mg BID PO Last administered on 12/03/16 08:53; Admin Dose 100 MG; Start 11/30/16 at 21:00 Magnesium Hydroxide (Milk Of Mag) 30 ml BID PRN PO CONSTIPATION; Start at 14:00 Lactulose (Enulose) 20 gm DAILY PRN PO CONSTIPATION Last administered on 09:10; Admin Dose 20 GM; Start 11/30/16 at 14:00 Enalapril Maleate (Vasotec) 10 mg AM PO Last administered on 12/03/16 09:10; Admin Dose 10 MG; Start 12/01/16 at 09:00 Morphine Sulfate (morphine) 2 mg Q2H PRN IV PAIN Last administered on 11:20; Admin Dose 2 MG; Start 12/01/16 at 15:00 Mupirocin (Bactroban) 1 applic BID TOP Last administered on 12/03/16 08:53; Admin Dose 1 APPLIC; Start 12/02/16 at 10:30; Stop 12/10/16 at 08:55 Acetaminophen/ Hydrocodone Bitart ([place] (10/325)) 2 tab Q6H PRN PO Severe pain Last administered on 12/03/16 08:53; Admin Dose 2 TAB; Start 12/02/16 at 11:30 Bisacodyl (Dulcolax Supp) 10 mg DAILY PRN [place] CONSTIPATION Last administered on 12/02/16 22:20; Admin Dose 10 MG; Start 12/02/16 at 22:30 Gabapentin (Neurontin) 200 mg TID PO Last administered on 12/03/16 12:40; Admin Dose 200 MG; Start 12/03/16 at 13:00 MAME SINGH Dec 03, 2016 13:26
[2016-12-03 20:00] VITALS: BP 124/68; RESP 18
[2016-12-03] MEDS: ATORVASTATIN 10 MG TAB PO SCH (20:04)
[2016-12-04] MEDS: morphine 2 MG INJ IV PRN ×10 (00:06→23:01)
[2016-12-04 02:31] VITALS: BP 148/60; PULSE 82; RESP 16
[2016-12-04 07:30] VITALS: BP 106/53; RESP 18
[2016-12-04] MEDS: DOCUSATE SODIUM 100 MG CAP PO SCH ×2 (09:29→20:48)
[2016-12-04] MEDS: GABAPENTIN 100 MG CAP PO SCH ×3 (09:30→20:48)
[2016-12-04] MEDS: ENALAPRIL 10 MG TAB PO SCH (09:30)
[2016-12-04] MEDS: MUPIROCIN 2% 22 GM OINT TOP SCH ×2 (09:35→20:48)
--- NOTE | 2016-12-04 10:24 | PN ---
Date/Time of Note Date/Time of Note DATE: 12/04/16 TIME: 10:21 Assessment/Plan VTE Prophylaxis VTE Prophylaxis Intervention: anti-embolic stocking Lines/Catheters IV Catheter Type (from Nrsg): Saline Lock Urinary Cath still in place: No Assessment/Plan Chief Complaint/Hosp Course Assessment/Plan -Myelopathy with paraplegia due to cord compression, status post thoracic 10-11 laminectomy with posterolateral fusion by Dr. Castellano. Continue [place] as needed for pain. Continue PT/OT. -Chronic lymphedema -MRSA of nares infection versus colonization, continue Bactroban. -Hypertension, patient is currently normotensive. -Obesity -Status post left lower extremity partial amputation. Further recommendations based on clinical course. Plan of care discussed with Dr. Olivera. Problems: Exam/Review of Systems Vital Signs Vitals Vital Signs Date Time Temp Pulse Resp B/P Pulse Ox O2 Delivery O2 Flow Rate FiO2 12/04/16 07:30 98.3 77 18 106/53 96 12/04/16 02:31 Room Air Intake and Output 12/03/16 12/03/16 12/04/16 15:00 23:00 07:00 Intake Total 1060 ml Output Total 2125 ml Balance -1065 ml Exam Constitutional: alert, oriented Psych: no complaints Head: normocephalic Neck: supple Respiratory: normal air movement Cardiovascular: nl pulses Gastrointestinal: non-tender, soft Extremities: other (Right upper and lower extremities lymphedema, left lower extremity status post partial amputation) Neurological: nl mental status Results Result Diagram: 12/03/1660412/03/16 06 Medications Medications Current Medications Ondansetron HCl (Zofran Inj) 4 mg Q4H PRN IV NAUSEA AND/OR VOMITING; Start 02/06 at 13:14 Acetaminophen/ Hydrocodone Bitart ([place] (10/325)) 1 tab Q4H PRN PO mild to mod pain Last administered on 12/03/16t 11:19; Admin Dose 1 TAB; Start 11/30/16 at 13:14 Bisacodyl (Dulcolax) 10 mg DAILY PRN PO CONSTIPATION; Start 11/30/16 at 13:14 Senna (Senokot) 2 tab DAILY PRN PO CONSTIPATION; Start 11/30/16 at 13:14 Acetaminophen (Tylenol Tab) 650 mg Q4H PRN PO PAIN AND OR ELEVATED TEMP; Start 11/30/16 at 13:14 Atorvastatin Calcium (Lipitor) 10 mg QHS PO Last administered on 12/03/16 20: 04; Admin Dose 10 MG; Start 11/30/16 at 13:14 Docusate Sodium (Colace) 100 mg BID PO Last administered on 12/04/16 09:29; Admin Dose 100 MG; Start 11/30/16 at 21:00 Magnesium Hydroxide (Milk Of Mag) 30 ml BID PRN PO CONSTIPATION; Start at 14:00 Lactulose (Enulose) 20 gm DAILY PRN PO CONSTIPATION Last administered on 09:10; Admin Dose 20 GM; Start 11/30/16 at 14:00 Enalapril Maleate (Vasotec) 10 mg AM PO Last administered on 12/04/16 09:30; Admin Dose 10 MG; Start 12/01/16 at 09:00 Morphine Sulfate (morphine) 2 mg Q2H PRN IV PAIN Last administered on 09:35; Admin Dose 2 MG; Start 12/01/16 at 15:00 Mupirocin (Bactroban) 1 applic BID TOP Last administered on 12/04/16 09:35; Admin Dose 1 APPLIC; Start 12/02/16 at 10:30; Stop 12/10/16 at 08:55 Acetaminophen/ Hydrocodone Bitart ([place] (10/325)) 2 tab Q6H PRN PO Severe pain Last administered on 12/03/16 08:53; Admin Dose 2 TAB; Start 12/02/16 at 11:30 Bisacodyl (Dulcolax Supp) 10 mg DAILY PRN [place] CONSTIPATION Last administered on 12/02/16 22:20; Admin Dose 10 MG; Start 12/02/16 at 22:30 Gabapentin (Neurontin) 200 mg TID PO Last administered on 12/04/16 09:30; Admin Dose 200 MG; Start 12/03/16 at 13:00 MICHELLE KOROMA Dec 04, 2016 10:24
--- NOTE | 2016-12-04 13:23 | CONS ---
Date/Time of Note Date/Time of Note DATE: 12/04/16 TIME: 13:21 Consult Date/Type/Reason Admit Date/Time Nov 30, 2016 at 12:40 Initial Consult Date Objective Vital Signs Date Time Temp Pulse Resp B/P Pulse Ox O2 Delivery O2 Flow Rate FiO2 12/04/16 07:30 98.3 77 18 106/53 96 12/04/16 02:31 Room Air Intake and Output 12/03/16 12/03/16 12/04/16 15:00 23:00 07:00 Intake Total 1060 ml Output Total 2125 ml Balance -1065 ml INTERDISCIPLINARY TEAM CONFERENCE BOWEL- Cont BLADDER-Cont SKIN- intact OT- DRESSING-min/mod BATHING-min/mod TOILETING-min/mod PT- BED MOBILITY-min/mod TRANSFERS-min/mod AMBULATION-mod 8 feet [place].C. MOBILITY-CO propulsion A/P- Interdisciplinary team conference held today. Please see interdisciplinary sheet. Working toward d.c. on 12/07 with post discharge follow up of physical therapy, occupational therapy. Biggest barrier has been variable participation. A behavior contract has been instituted to assist with improved participation. Results/Medications Result Diagram: 12/03/16 0612/03/16 0605 Medications Current Medications Ondansetron HCl (Zofran Inj) 4 mg Q4H PRN IV NAUSEA AND/OR VOMITING; Start 02/06 at 13:14 Acetaminophen/ Hydrocodone Bitart ([place] (10/325)) 1 tab Q4H PRN PO mild to mod pain Last administered on 12/03/16 11:19; Admin Dose 1 TAB; Start 11/30/16 at 13:14 Bisacodyl (Dulcolax) 10 mg DAILY PRN PO CONSTIPATION; Start 11/30/16 at 13:14 Senna (Senokot) 2 tab DAILY PRN PO CONSTIPATION; Start 11/30/16 at 13:14 Acetaminophen (Tylenol Tab) 650 mg Q4H PRN PO PAIN AND OR ELEVATED TEMP; Start 11/30/16 at 13:14 Atorvastatin Calcium (Lipitor) 10 mg QHS PO Last administered on 12/03/16 20: 04; Admin Dose 10 MG; Start 11/30/16 at 13:14 Docusate Sodium (Colace) 100 mg BID PO Last administered on 12/04/16 09:29; Admin Dose 100 MG; Start 11/30/16 at 21:00 Magnesium Hydroxide (Milk Of Mag) 30 ml BID PRN PO CONSTIPATION; Start at 14:00 Lactulose (Enulose) 20 gm DAILY PRN PO CONSTIPATION Last administered on 09:10; Admin Dose 20 GM; Start 11/30/16 at 14:00 Enalapril Maleate (Vasotec) 10 mg AM PO Last administered on 12/04/16 09:30; Admin Dose 10 MG; Start 12/01/16 at 09:00 Morphine Sulfate (morphine) 2 mg Q2H PRN IV PAIN Last administered on 11:53; Admin Dose 2 MG; Start 12/01/16 at 15:00 Mupirocin (Bactroban) 1 applic BID TOP Last administered on 12/04/16 09:35; Admin Dose 1 APPLIC; Start 12/02/16 at 10:30; Stop 12/10/16 at 08:55 Acetaminophen/ Hydrocodone Bitart ([place] (10/325)) 2 tab Q6H PRN PO Severe pain Last administered on 12/03/16 08:53; Admin Dose 2 TAB; Start 12/02/16 at 11:30 Bisacodyl (Dulcolax Supp) 10 mg DAILY PRN [place] CONSTIPATION Last administered on 12/02/16 22:20; Admin Dose 10 MG; Start 12/02/16 at 22:30 Gabapentin (Neurontin) 200 mg TID PO Last administered on 12/04/16 12:59; Admin Dose 200 MG; Start 12/03/16 at 13:00 Assessment/Plan Chief Complaint/Hosp Course Patient is a 61-year-old gentleman with a history of left transmetatarsal amputation in addition to severe thoracic stenosis with cord compression and myelopathy who underwent a decompressive laminectomy and fusion. His postoperative course has been notable for significant pain in addition to impairments in self-care and mobility as compared to baseline. Patient has been cleared to transfer to the rehabilitation unit for conference of interdisciplinary rehab care Problems: SYD SANCHEZ MD Dec 04, 2016 13:23
[2016-12-04 14:00] VITALS: BP 125/70; RESP 18
--- NOTE | 2016-12-04 19:28 | RADRPT ---
Vent Rate: 71 bpm RR Interval: 0 msec ME Interval: 166 msec QRS Duration: 92 msec QT Interval: 374 msec QTC Interval: 406 msec P-R-T [place]: 51 - 82 - 1 degrees Sinus rhythm with marked sinus arrhythmia Nonspecific T wave abnormality Abnormal ECG Electronically Signed By: Junior Raza [id number]
[2016-12-04 20:00] VITALS: BP 100/51; RESP 18
[2016-12-04] MEDS: ATORVASTATIN 10 MG TAB PO SCH (20:48)
[2016-12-05 02:00] VITALS: BP 106/60; RESP 18
[2016-12-05] MEDS: morphine 2 MG INJ IV PRN ×8 (03:00→23:54)
[2016-12-05 07:45] VITALS: BP 128/86; RESP 18
[2016-12-05] MEDS: GABAPENTIN 100 MG CAP PO SCH ×3 (10:17→20:26)
[2016-12-05] MEDS: DOCUSATE SODIUM 100 MG CAP PO SCH ×2 (10:18→20:26)
[2016-12-05] MEDS: MUPIROCIN 2% 22 GM OINT TOP SCH ×2 (10:19→20:28)
[2016-12-05] MEDS: ENALAPRIL 10 MG TAB PO SCH (10:20)
--- NOTE | 2016-12-05 12:35 | CONS ---
Date/Time of Note Date/Time of Note DATE: 12/05/16 TIME: 12:23 Consult Date/Type/Reason Admit Date/Time Nov 30, 2016 at 12:40 Subjective Patient requires maximal encouragement for participation Objective Lungs clear abdomen soft Min assist transfer Vital Signs Date Time Temp Pulse Resp B/P Pulse Ox O2 Delivery O2 Flow Rate FiO2 12/05/16 07:45 98.2 69 18 128/86 97 12/04/16 02:31 Room Air Intake and Output 12/04/16 12/04/16 12/05/16 15:00 23:00 07:00 Intake Total 800 ml 350 ml Output Total 620 ml 500 ml 250 ml Balance 180 ml -500 ml 100 ml Results/Medications Result Diagram: 12/03/1660412/03/16604 Medications Current Medications Ondansetron HCl (Zofran Inj) 4 mg Q4H PRN IV NAUSEA AND/OR VOMITING; Start 02/06 at 13:14 Acetaminophen/ Hydrocodone Bitart ([place] (10/325)) 1 tab Q4H PRN PO mild to mod pain Last administered on 12/03/16 11:19; Admin Dose 1 TAB; Start 11/30/16 at 13:14 Bisacodyl (Dulcolax) 10 mg DAILY PRN PO CONSTIPATION; Start 11/30/16 at 13:14 Senna (Senokot) 2 tab DAILY PRN PO CONSTIPATION; Start 11/30/16 at 13:14 Acetaminophen (Tylenol Tab) 650 mg Q4H PRN PO PAIN AND OR ELEVATED TEMP; Start 11/30/16 at 13:14 Atorvastatin Calcium (Lipitor) 10 mg QHS PO Last administered on 12/04/16 20: 48; Admin Dose 10 MG; Start 11/30/16 at 13:14 Docusate Sodium (Colace) 100 mg BID PO Last administered on 12/05/16 10:18; Admin Dose 100 MG; Start 11/30/16 at 21:00 Magnesium Hydroxide (Milk Of Mag) 30 ml BID PRN PO CONSTIPATION; Start at 14:00 Lactulose (Enulose) 20 gm DAILY PRN PO CONSTIPATION Last administered on 09:10; Admin Dose 20 GM; Start 11/30/16 at 14:00 Enalapril Maleate (Vasotec) 10 mg AM PO Last administered on 12/05/16 10:20; Admin Dose 10 MG; Start 12/01/16 at 09:00 Morphine Sulfate (morphine) 2 mg Q2H PRN IV PAIN Last administered on 10:14; Admin Dose 2 MG; Start 12/01/16 at 15:00 Mupirocin (Bactroban) 1 applic BID TOP Last administered on 12/05/16 10:19; Admin Dose 1 APPLIC; Start 12/02/16 at 10:30; Stop 12/10/16 at 08:55 Acetaminophen/ Hydrocodone Bitart ([place] (10/325)) 2 tab Q6H PRN PO Severe pain Last administered on 12/03/16 08:53; Admin Dose 2 TAB; Start 12/02/16 at 11:30 Bisacodyl (Dulcolax Supp) 10 mg DAILY PRN [place] CONSTIPATION Last administered on 12/02/16 22:20; Admin Dose 10 MG; Start 12/02/16 at 22:30 Gabapentin (Neurontin) 200 mg TID PO Last administered on 12/05/16 10:17; Admin Dose 200 MG; Start 12/03/16 at 13:00 Assessment/Plan Chief Complaint/Hosp Course Patient is a 61-year-old gentleman with a history of left transmetatarsal amputation in addition to severe thoracic stenosis with cord compression and myelopathy who underwent a decompressive laminectomy and fusion. His postoperative course has been notable for significant pain in addition to impairments in self-care and mobility as compared to baseline. Patient has been cleared to transfer to the rehabilitation unit for conference of interdisciplinary rehab care Problems: Additional Assessment/Plan Rehabilitation-SCI with Thoracic Myelopathy-s/p decompressive laminectomy and fusion; history of Left foot transmetatarsal amputation Continue interdisciplinary treatment plan with encouragement for activities Acute pain Syndrome-continue current meds Hypertension Anemia Obesity history of PVD with chronic foot ulcers-wound care history of cervical laminectomy SYD SANCHEZ MD Dec 05, 2016 12:35
[2016-12-05] MEDS ORDERED: HYDROmorphONE 1 MG/ML SYG IV STA (14:46)
--- NOTE | 2016-12-05 16:54 | PN ---
Date/Time of Note Date/Time of Note DATE: 12/05/16 TIME: 16:53 Assessment/Plan VTE Prophylaxis VTE Prophylaxis Intervention: SCD's Lines/Catheters IV Catheter Type (from Nrsg): Saline Lock Urinary Cath still in place: No Assessment/Plan Chief Complaint/Hosp Course Patient was intermittent physical therapy participation, complaints of pain. Assessment/Plan -Myelopathy with paraplegia due to cord compression, status post thoracic 10-11 laminectomy with posterolateral fusion by Dr. Castellano. Continue [place] and Dilaudid as needed for pain. Continue PT/OT. -Chronic lymphedema -MRSA of nares infection versus colonization, continue Bactroban. -Hypertension, patient is currently normotensive. -Obesity -Status post left lower extremity partial amputation. Further recommendations based on clinical course. Plan of care discussed with Dr. Olivera. Problems: Exam/Review of Systems Vital Signs Vitals Vital Signs Date Time Temp Pulse Resp B/P Pulse Ox O2 Delivery O2 Flow Rate FiO2 12/05/16 07:45 98.2 69 18 128/86 97 12/04/16 02:31 Room Air Intake and Output 12/04/16 12/04/16 12/05/16 15:00 23:00 07:00 Intake Total 800 ml 350 ml Output Total 620 ml 500 ml 250 ml Balance 180 ml -500 ml 100 ml Exam Constitutional: alert, oriented Respiratory: normal air movement Cardiovascular: nl pulses Gastrointestinal: non-tender, soft Extremities: other (Right upper and lower extremities lymphedema, left lower extremity status post partial amputation) Neurological: nl mental status Results Result Diagram: 12/03/1660412/03/16604 Medications Medications Current Medications Ondansetron HCl (Zofran Inj) 4 mg Q4H PRN IV NAUSEA AND/OR VOMITING; Start 02/06 at 13:14 Acetaminophen/ Hydrocodone Bitart ([place] (10/325)) 1 tab Q4H PRN PO mild to mod pain Last administered on 12/03/16t 11:19; Admin Dose 1 TAB; Start 11/30/16 at 13:14 Bisacodyl (Dulcolax) 10 mg DAILY PRN PO CONSTIPATION; Start 11/30/16 at 13:14 Senna (Senokot) 2 tab DAILY PRN PO CONSTIPATION; Start 11/30/16 at 13:14 Acetaminophen (Tylenol Tab) 650 mg Q4H PRN PO PAIN AND OR ELEVATED TEMP; Start 11/30/16 at 13:14 Atorvastatin Calcium (Lipitor) 10 mg QHS PO Last administered on 12/04/16 20: 48; Admin Dose 10 MG; Start 11/30/16 at 13:14 Docusate Sodium (Colace) 100 mg BID PO Last administered on 12/05/16 10:18; Admin Dose 100 MG; Start 11/30/16 at 21:00 Magnesium Hydroxide (Milk Of Mag) 30 ml BID PRN PO CONSTIPATION; Start at 14:00 Lactulose (Enulose) 20 gm DAILY PRN PO CONSTIPATION Last administered on 09:10; Admin Dose 20 GM; Start 11/30/16 at 14:00 Enalapril Maleate (Vasotec) 10 mg AM PO Last administered on 12/05/16 10:20; Admin Dose 10 MG; Start 12/01/16 at 09:00 Morphine Sulfate (morphine) 2 mg Q2H PRN IV PAIN Last administered on 12:59; Admin Dose 2 MG; Start 12/01/16 at 15:00 Mupirocin (Bactroban) 1 applic BID TOP Last administered on 12/05/16 10:19; Admin Dose 1 APPLIC; Start 12/02/16 at 10:30; Stop 12/10/16 at 08:55 Acetaminophen/ Hydrocodone Bitart ([place] (10/325)) 2 tab Q6H PRN PO Severe pain Last administered on 12/03/16 08:53; Admin Dose 2 TAB; Start 12/02/16 at 11:30 Bisacodyl (Dulcolax Supp) 10 mg DAILY PRN [place] CONSTIPATION Last administered on 12/02/16 22:20; Admin Dose 10 MG; Start 12/02/16 at 22:30 Gabapentin (Neurontin) 200 mg TID PO Last administered on 12/05/16 13:00; Admin Dose 200 MG; Start 12/03/16 at 13:00 Hydromorphone HCl (Dilaudid) 1 mg Q3H PRN IV PAIN; Start 12/05/16 at 15:00 MICHELLE KOROMA Dec 05, 2016 16:54
[2016-12-05] MEDS: HYDROmorphONE 1 MG/ML SYG IV PRN (18:36)
[2016-12-05 20:00] VITALS: BP 110/53; RESP 20
[2016-12-05] MEDS: ATORVASTATIN 10 MG TAB PO SCH (20:26)
[2016-12-05] MEDS: HYDROCODONE/APAP (10/325) TAB PO PRN (20:27)
[2016-12-06 02:00] VITALS: BP 118/68; RESP 18
[2016-12-06] MEDS: morphine 2 MG INJ IV PRN ×5 (02:03→20:12)
[2016-12-06 06:55] LABS: BASOPHILS % 0.2 % (0.0-2.0); EOSINOPHILS # 0.1 10^3/ul (0.0-0.5); EOSINOPHILS % 2.9 % (0.0-7.0); HEMATOCRIT 34.5 % (42.0-52.0); HEMOGLOBIN 11.4 g/dl (14.0-18.0); LYMPHOCYTES # 1.3 10^3/ul (0.8-2.9); LYMPHOCYTES % 29.7 % (15.0-51.0); MEAN CORPUSCULAR HEMOGLOBIN 28.8 pg (29.0-33.0); MEAN CORPUSCULAR VOLUME 87.1 fl (82.0-101.0); MEAN PLATELET VOLUME 10.8 fl (7.4-10.4); MONOCYTE # 0.4 10^3/ul (0.3-0.9); MONOCYTES % 8.2 % (0.0-11.0); NEUTROPHILS % 58.1 % (39.0-77.0); NUCLEATED RED BLOOD CELLS% 0.5 /100WBC (0.0-0.0); POSITIVE DIFF @See below; RED BLOOD COUNT 3.96 10^6/ul (4.70-6.10); WHITE BLOOD COUNT 4.4 10^3/ul (4.8-10.8)
[2016-12-06 07:07] LABS: PLATELET COUNT 126 10^3/UL (140-415)
[2016-12-06 07:24] VITALS: BP 96/52; RESP 18
[2016-12-06 07:29] LABS: CALCIUM 8.6 mg/dl (8.4-10.2); CREATININE 0.71 mg/dl (0.61-1.24)
[2016-12-06] MEDS: HYDROmorphONE 1 MG/ML SYG IV PRN ×5 (09:12→22:03)
--- NOTE | 2016-12-06 09:21 | CONS ---
Date/Time of Note Date/Time of Note DATE: 12/06/16 TIME: 09:20 Consult Date/Type/Reason Admit Date/Time Nov 30, 2016 at 12:40 Subjective pulm-cta sba transfer Objective CFGA transfers, [place] wheelchair mobility Vital Signs Date Time Temp Pulse Resp B/P Pulse Ox O2 Delivery O2 Flow Rate FiO2 12/06/16 07:24 98.2 73 18 96/52 97 12/04/16 02:31 Room Air Intake and Output 12/05/16 12/05/16 12/06/16 14:59 22:59 06:59 Intake Total 800 ml 400 ml 360 ml Output Total 1000 ml 1430 ml Balance -200 ml 400 ml -1070 ml Results/Medications Result Diagram: 12/06/1662212/06/1623 Results 24 hrs Laboratory Tests Test 12/06/16 06:23 White Blood Count 4.4 #L Red Blood Count 3.96 L Hemoglobin 11.4 L Hematocrit 34.5 L Mean Corpuscular Volume 87.1 Mean Corpuscular Hemoglobin 28.8 L Mean Corpuscular Hemoglobin Concent 33.0 Red Cell Distribution Width 15.0 H Platelet Count 126 #L Mean Platelet Volume 10.8 H Neutrophils % 58.1 Lymphocytes % 29.7 Monocytes % 8.2 Eosinophils % 2.9 Basophils % 0.2 Nucleated Red Blood Cells % 0.5 H Neutrophils # (Manual) 2.6 Lymphocytes # 1.3 Monocytes # 0.4 Eosinophils # 0.1 Basophils # 0.0 Nucleated Red Blood Cells # 0.0 Sodium Level 135 Potassium Level 4.0 Chloride Level 105 Carbon Dioxide Level 23 Anion Gap 11 Blood Urea Nitrogen 20 Creatinine 0.71 Glucose Level 107 Calcium Level 8.6 Medications Current Medications Ondansetron HCl (Zofran Inj) 4 mg Q4H PRN IV NAUSEA AND/OR VOMITING; Start 02/06 at 13:14 Acetaminophen/ Hydrocodone Bitart ([place] (10/325)) 1 tab Q4H PRN PO mild to mod pain Last administered on 12/05/16t 20:27; Admin Dose 1 TAB; Start 11/30/16 at 13:14 Bisacodyl (Dulcolax) 10 mg DAILY PRN PO CONSTIPATION; Start 11/30/16 at 13:14 Senna (Senokot) 2 tab DAILY PRN PO CONSTIPATION; Start 11/30/16 at 13:14 Acetaminophen (Tylenol Tab) 650 mg Q4H PRN PO PAIN AND OR ELEVATED TEMP; Start 11/30/16 at 13:14 Atorvastatin Calcium (Lipitor) 10 mg QHS PO Last administered on 12/05/16 20: 26; Admin Dose 10 MG; Start 11/30/16 at 13:14 Docusate Sodium (Colace) 100 mg BID PO Last administered on 12/05/16 20:26; Admin Dose 100 MG; Start 11/30/16 at 21:00 Magnesium Hydroxide (Milk Of Mag) 30 ml BID PRN PO CONSTIPATION; Start at 14:00 Lactulose (Enulose) 20 gm DAILY PRN PO CONSTIPATION Last administered on 09:10; Admin Dose 20 GM; Start 11/30/16 at 14:00 Enalapril Maleate (Vasotec) 10 mg AM PO Last administered on 12/05/16 10:20; Admin Dose 10 MG; Start 12/01/16 at 09:00 Morphine Sulfate (morphine) 2 mg Q2H PRN IV PAIN Last administered on 06:23; Admin Dose 2 MG; Start 12/01/16 at 15:00 Mupirocin (Bactroban) 1 applic BID TOP Last administered on 12/05/16 20:28; Admin Dose 1 APPLIC; Start 12/02/16 at 10:30; Stop 12/10/16 at 08:55 Acetaminophen/ Hydrocodone Bitart ([place] (10/325)) 2 tab Q6H PRN PO Severe pain Last administered on 12/03/16 08:53; Admin Dose 2 TAB; Start 12/02/16 at 11:30 Bisacodyl (Dulcolax Supp) 10 mg DAILY PRN [place] CONSTIPATION Last administered on 12/02/16 22:20; Admin Dose 10 MG; Start 12/02/16 at 22:30 Gabapentin (Neurontin) 200 mg TID PO Last administered on 12/05/16 20:26; Admin Dose 200 MG; Start 12/03/16 at 13:00 Hydromorphone HCl (Dilaudid) 1 mg Q3H PRN IV PAIN Last administered on 09:12; Admin Dose 1 MG; Start 12/05/16 at 15:00 Assessment/Plan Additional Assessment/Plan Rehabilitation-SCI with Thoracic Myelopathy-s/p decompressive laminectomy and fusion; history of Left foot transmetatarsal amputation Continue current treatment plan Acute pain Syndrome-continue current meds Hypertension Anemia Obesity history of PVD with chronic foot ulcers-wound care history of cervical laminectomy SYD SANCHEZ MD Dec 06, 2016 09:21
[2016-12-06] MEDS: GABAPENTIN 100 MG CAP PO SCH ×3 (11:45→20:11)
[2016-12-06] MEDS: DOCUSATE SODIUM 100 MG CAP PO SCH ×2 (11:45→20:10)
[2016-12-06] MEDS: ENALAPRIL 10 MG TAB PO SCH (11:45)
[2016-12-06] MEDS: MUPIROCIN 2% 22 GM OINT TOP SCH ×2 (11:46→21:00)
[2016-12-06] MEDS: CEPHALEXIN 500 MG CAP PO SCH ×2 (14:12→20:10)
--- NOTE | 2016-12-06 16:30 | PN ---
Date/Time of Note Date/Time of Note DATE: 12/06/16 TIME: 16:29 Assessment/Plan VTE Prophylaxis VTE Prophylaxis Intervention: SCD's Lines/Catheters IV C[facility]ter Type [facility] [place] Urinary Cath still in place: No Assessment/Plan Chief Complaint/Hosp Course Assessment/Plan -Myelopathy with paraplegia due to cord compression, status post thoracic 10-11 laminectomy with posterolateral fusion by Dr. Castellano. Continue [place] and Dilaudid as needed for pain. Continue PT/OT. -Chronic lymphedema -MRSA of nares infection versus colonization, continue Bactroban. -Hypertension, patient is currently normotensive. -Obesity -Status post left lower extremity partial amputation. Further recommendations based on clinical course. Plan of care discussed with Dr. Olivera. Problems: Exam/Review of Systems Vital Signs Vitals Vital Signs Date Time Temp Pulse Resp B/P Pulse Ox O2 Delivery O2 Flow Rate FiO2 12/06/16 07:24 98.2 73 18 96/52 97 12/04/16 02:31 Room Air Intake and Output 12/05/16 12/05/16 12/06/16 15:00 23:00 07:00 Intake Total 800 ml 400 ml 360 ml Output Total 1000 ml 1430 ml Balance -200 ml 400 ml -1070 ml Exam Constitutional: alert, oriented Respiratory: normal air movement Cardiovascular: nl pulses Gastrointestinal: non-tender, soft Extremities: other (Right upper and lower extremities lymphedema, left lower extremity status post partial amputation) Neurological: nl mental status Results Result Diagram: 12/06/16 0623 12/06/16 0623 Results 24 hrs Laboratory Tests Test 12/06/16 06:23 White Blood Count 4.4 #L Red Blood Count 3.96 L Hemoglobin 11.4 L Hematocrit 34.5 L Mean Corpuscular Volume 87.1 Mean Corpuscular Hemoglobin 28.8 L Mean Corpuscular Hemoglobin Concent 33.0 Red Cell Distribution Width 15.0 H Platelet Count 126 #L Mean Platelet Volume 10.8 H Neutrophils % 58.1 Lymphocytes % 29.7 Monocytes % 8.2 Eosinophils % 2.9 Basophils % 0.2 Nucleated Red Blood Cells % 0.5 H Neutrophils # (Manual) 2.6 Lymphocytes # 1.3 Monocytes # 0.4 Eosinophils # 0.1 Basophils # 0.0 Nucleated Red Blood Cells # 0.0 Sodium Level 135 Potassium Level 4.0 Chloride Level 105 Carbon Dioxide Level 23 Anion Gap 11 Blood Urea Nitrogen 20 Creatinine 0.71 Glucose Level 107 Calcium Level 8.6 Medications Medications Current Medications Ondansetron HCl (Zofran Inj) 4 mg Q4H PRN IV NAUSEA AND/OR VOMITING; Start 02/06 at 13:14 Acetaminophen/ Hydrocodone Bitart ([place] (10325)) 1 tab Q4H PRN PO mild to mod pain Last administered on 12/05/16 20:27; Admin Dose 1 TAB; Start 11/30/16 at 13:14 Bisacodyl (Dulcolax) 10 mg DAILY PRN PO CONSTIPATION; Start 11/30/16 at 13:14 Senna (Senokot) 2 tab DAILY PRN PO CONSTIPATION; Start 11/30/16 at 13:14 Acetaminophen (Tylenol Tab) 650 mg Q4H PRN PO PAIN AND OR ELEVATED TEMP; Start 11/30/16 at 13:14 Atorvastatin Calcium (Lipitor) 10 mg QHS PO Last administered on 12/05/16 20: 26; Admin Dose 10 MG; Start 11/30/16 at 13:14 Docusate Sodium (Colace) 100 mg BID PO Last administered on 12/06/16 11:45; Admin Dose 100 MG; Start 11/30/16 at 21:00 Magnesium Hydroxide (Milk Of Mag) 30 ml BID PRN PO CONSTIPATION; Start at 14:00 Lactulose (Enulose) 20 gm DAILY PRN PO CONSTIPATION Last administered on 09:10; Admin Dose 20 GM; Start 11/30/16 at 14:00 Enalapril Maleate (Vasotec) 10 mg AM PO Last administered on 12/06/16 11:45; Admin Dose 10 MG; Start 12/01/16 at 09:00 Morphine Sulfate (morphine) 2 mg Q2H PRN IV PAIN Last administered on 12:22; Admin Dose 2 MG; Start 12/01/16 at 15:00 Mupirocin (Bactroban) 1 applic BID TOP Last administered on 12/06/16 11:46; Admin Dose 1 APPLIC; Start 12/02/16 at 10:30; Stop 12/10/16 at 08:55 Acetaminophen/ Hydrocodone Bitart ([place] (10325)) 2 tab Q6H PRN PO Severe pain Last administered on 12/03/16 08:53; Admin Dose 2 TAB; Start 12/02/16 at 11:30 Bisacodyl (Dulcolax Supp) 10 mg DAILY PRN [place] CONSTIPATION Last administered on 12/02/16 22:20; Admin Dose 10 MG; Start 12/02/16 at 22:30 Gabapentin (Neurontin) 200 mg TID PO Last administered on 12/06/16 14:12; Admin Dose 200 MG; Start 12/03/16 at 13:00 Hydromorphone HCl (Dilaudid) 1 mg Q3H PRN IV PAIN Last administered on 14:37; Admin Dose 1 MG; Start 12/05/16 at 15:00 Cephalexin (Keflex) 500 mg BID PO Last administered on 12/06/16 14:12; Admin Dose 500 MG; Start 12/06/16 at 12:00 MICHELLE KOROMA Dec 06, 2016 16:30
[2016-12-06] MEDS ORDERED: VANCOMYCIN IV PER PHARMACY XX SCH (17:00)
[2016-12-06] MEDS ORDERED: LEVOFLOXACIN 500 MG TAB PO SCH (17:00)
[2016-12-06] MEDS ORDERED: VANCOMYCIN 2 GM in SOD CHLORIDE 0.9% 500 ML IVPB SCH (19:00)
[2016-12-06] MEDS: ATORVASTATIN 10 MG TAB PO SCH (20:11)
[2016-12-06 21:00] VITALS: BP 123/57; RESP 18
[2016-12-06] MEDS: TRIMETHOPRIM/SULFAMETHOX (DS) TAB PO SCH (22:02)
[2016-12-07] MEDS: morphine 2 MG INJ IV PRN ×3 (00:16→12:17)
[2016-12-07] MEDS ORDERED: VANCOMYCIN 2 GM in SOD CHLORIDE 0.9% 500 ML IVPB SCH (01:00)
[2016-12-07 02:00] VITALS: BP 128/60; RESP 18
[2016-12-07] MEDS: HYDROmorphONE 1 MG/ML SYG IV PRN ×5 (02:00→13:53)
[2016-12-07] MEDS: HYDROCODONE/APAP (10/325) TAB PO PRN (03:39)
[2016-12-07 07:02] LABS: BASOPHILS % 0.2 % (0.0-2.0); EOSINOPHILS # 0.2 10^3/ul (0.0-0.5); EOSINOPHILS % 2.2 % (0.0-7.0); HEMATOCRIT 35.2 % (42.0-52.0); HEMOGLOBIN 11.4 g/dl (14.0-18.0); LYMPHOCYTES # 2.2 10^3/ul (0.8-2.9); LYMPHOCYTES % 26.6 % (15.0-51.0); MEAN CORPUSCULAR HEMOGLOBIN 28.1 pg (29.0-33.0); MEAN CORPUSCULAR HGB CONC 32.4 g/dl (32.0-37.0); MEAN CORPUSCULAR VOLUME 86.9 fl (82.0-101.0); MEAN PLATELET VOLUME 9.7 fl (7.4-10.4); MONOCYTE # 0.7 10^3/ul (0.3-0.9); MONOCYTES % 8.3 % (0.0-11.0); NEUTROPHILS % 62.5 % (39.0-77.0); PLATELET COUNT 241 10^3/UL (140-415); RED BLOOD COUNT 4.05 10^6/ul (4.70-6.10); WHITE BLOOD COUNT 8.4 10^3/ul (4.8-10.8)
[2016-12-07 07:21] LABS: CALCIUM 8.8 mg/dl (8.4-10.2); CREATININE 0.81 mg/dl (0.61-1.24); POTASSIUM 4.2 mmol/L (3.5-5.1)
[2016-12-07 07:30] VITALS: BP 116/75; RESP 20
--- NOTE | 2016-12-07 09:52 | PN ---
DATE: 12/06/2016 ADDENDUM: Patient is complaining of left upper extremity pain and erythema near the previous IV site. The vital signs are stable. However, CBC revealed white count of 4.4, and platelets are down to 126 from normal 247 on 12/03/2016. Will obtain venous Doppler of left upper extremity and also will start him on IV vancomycin and oral Levaquin. The patient has history of lymphedema and is also status post extensive thoracic spine surgery. We will hold off on discharge for this patient. Further recommendations depend on patient's hospital course. Plan of care discussed with nursing staff. Dictated By: Joshua Olivera MD /keegan/tabitha /Document#: [id number]
--- NOTE | 2016-12-07 09:53 | RADRPT ---
PROCEDURE: US Upper extremity venous. CLINICAL INDICATION: Arm pain, swelling TECHNIQUE: Multiple sonographic images of the left upper extremity deep venous system was obtained utilizing grayscale and Doppler/color-flow imaging. COMPARISON: None. FINDINGS: There is normal compressibility / flow within the left internal jugular, subclavian, axillary, brach ial, radial, ulnar, cephalic, and basilic veins. IMPRESSION: No sonographic evidence for deep venous thrombosis in the left upper extremity. RPTAT: VV .Chidi Naidu MD, MD Date Time Electronically viewed and signed by .Chidi Naidu MD, on 12/06/2016 17:39 .O/
[2016-12-07] MEDS: CEPHALEXIN 500 MG CAP PO SCH (10:51)
[2016-12-07] MEDS: DOCUSATE SODIUM 100 MG CAP PO SCH (10:52)
[2016-12-07] MEDS: GABAPENTIN 100 MG CAP PO SCH (10:52)
[2016-12-07] MEDS: ENALAPRIL 10 MG TAB PO SCH (10:53)
[2016-12-07] MEDS: MUPIROCIN 2% 22 GM OINT TOP SCH (10:53)
[2016-12-07] MEDS: TRIMETHOPRIM/SULFAMETHOX (DS) TAB PO SCH (10:57)
--- NOTE | 2016-12-07 11:59 | PDOCDIS ---
Discharge Instructions CONDITION Patient Condition: Stable HOME CARE INSTRUCTIONS: Diet Instructions: ACTIVITY: Activity Restrictions: Slowly Increase Activity Rest between Activity Avoid heavy lifting Do not Drive Do not operate Machinery Do not operate Power Tool Avoid Heavy Housework Bathing Restrictions: Sponge Bath FOLLOW UP/APPOINTMENTS Follow-up Plan Follow with primary in 1 week\follow-up with neurosurgery in as recommended Call 911 or go to the nearest hospital if the symptoms get worse Patient verbalized understanding of discharge instructions Discussed with staff, patient, MAME Pena Dec 07, 2016 11:59
--- NOTE | 2016-12-07 12:00 | DS ---
Date/Time of Note Date/Time of Note DATE: 12/07/16 TIME: 12:00 Discharge Summary Admission/Discharge Info Admit Date/Time Nov 30, 2016 at 12:40 Discharge Date/Time Hx of Present Illness The patient is a 61-year-old male with obesity, HTN, chronic lymphedema, s/p multiple LLE surgeries, s/p LLE partial amputation. 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 The patient has failed outpatient therapy and has failed conservative management. Patient underwent thoracic 10-11 laminectomy with posterolateral fusion by Dr. Castellano. Postoperatively, patient experienced pain and has slow progress with PT. Patient is admitted to acute rehab for further management and therapy. Hospital Course Assessment/Plan -Myelopathy with paraplegia due to cord compression, status post thoracic 10-11 laminectomy with posterolateral fusion by Dr. Castellano. Continue [place] and Dilaudid as needed for pain. Continue PT/OT. -Chronic lymphedema -MRSA of nares infection versus colonization, continue Bactroban. -Hypertension, patient is currently normotensive. -Obesity -Status post left lower extremity partial amputation. Further recommendations based on clinical course. Plan of care discussed with Dr. Olivera. Home Meds Reported Medications Quinapril Hcl (Quinapril Hcl) 10 Mg Tablet, 10 MG PO BID, #60 TAB 06/23/16 Docusate Sodium* (Docusate Sodium*) 100 Mg Capsule, 100 MG PO BID, #60 CAP 06/23/16 Atorvastatin Calcium (Atorvastatin Calcium) 10 Mg Tablet, 10 MG PO QHS, #30 TAB 06/23/16 Hydrocodone Bit-Acetaminophen* ([place]*) 10-325 Mg Tablet, 1 TAB PO Q4H Y for PAIN, TAB 07/17/14 Enalapril Maleate* (Vasotec*) 10 Mg Tablet, 10 MG PO DAILY, TAB 07/17/14 Primary Care Provider Doris Rolle Pending Labs Laboratory Tests Test 12/07/16 06:09 12/07/16 07:57 White Blood Count 8.410^3/ul (4.8-10.8) Red Blood Count 4.0510^6/ul (4.70-6.10) Hemoglobin 11.4g/dl (14.0-18.0) Hematocrit 35.2% (42.0-52.0) Mean Corpuscular Volume 86.9fl (82.0-101.0) Mean Corpuscular Hemoglobin 28.1pg (29.0-33.0) Mean Corpuscular Hemoglobin Concent 32.4g/dl (32.0-37.0) Red Cell Distribution Width 15.0% (11.5-14.5) Platelet Count 49230^3/UL (140-415) Mean Platelet Volume 9.7fl (7.4-10.4) Neutrophils % 62.5% (39.0-77.0) Lymphocytes % 26.6% (15.0-51.0) Monocytes % 8.3% (0.0-11.0) Eosinophils % 2.2% (0.0-7.0) Basophils % 0.2% (0.0-2.0) Nucleated Red Blood Cells % 0.0/100WBC (0.0-0.0) Neutrophils # (Manual) 5.210^3/ul (1.7-7.5) Lymphocytes # 2.210^3/ul (0.8-2.9) Monocytes # 0.710^3/ul (0.3-0.9) Eosinophils # 0.210^3/ul (0.0-0.5) Basophils # 0.010^3/ul (0.0-0.1) Nucleated Red Blood Cells # 0.010^3/ul (0.0-0.0) Sodium Level 136mmol/L (135-144) Potassium Level 4.2mmol/L (3.5-5.1) Chloride Level 102mmol/L (97-110) Carbon Dioxide Level 28mmol/L (21-31) Anion Gap 10 (8-16) Blood Urea Nitrogen 17mg/dl (7-20) Creatinine 0.81mg/dl (0.61-1.24) Glucose Level 94mg/dl (70-220) Calcium Level 8.8mg/dl (8.4-10.2) Bedside Glucose 96mg/dL (70-220) MAME SINGH Dec 07, 2016 12:00
--- NOTE | 2016-12-07 13:07 | DS ---
Date/Time of Note Date/Time of Note DATE: 12/07/16 TIME: 12:59 Discharge Summary Admission/Discharge Info Admit Date/Time Nov 30, 2016 at 12:40 Discharge Date/Time Discharge Diagnosis 1.SCI with Thoracic Myelopathy-s/p decompressive laminectomy and fusion 2.Acute pain Syndrome-improved 3.Anemia 4. Hypertension 5. history of PVD with chronic foot ulcers 6. history of Left foot transmetatarsal amputation 7. history of cervical laminectomy 8. Improvements in self care and mobility Patient Condition: Good Hx of Present Illness The patient was admitted for comprehensive interdisciplinary rehab and has made excellent functional gains. Patient progressed from maximal assist to sba level for self care and mobility. Patient is being discharged home with recommendation of home health PT and OT. Patient will follow up with PMD Hospital Course Assessment/Plan -Myelopathy with paraplegia due to cord compression, status post thoracic 10-11 laminectomy with posterolateral fusion by Dr. Castellano. Continue [place] and Dilaudid as needed for pain. Continue PT/OT. -Chronic lymphedema -MRSA of nares infection versus colonization, continue Bactroban. -Hypertension, patient is currently normotensive. -Obesity -Status post left lower extremity partial amputation. Further recommendations based on clinical course. Plan of care discussed with Dr. Olivera. Home Meds Reported Medications Quinapril Hcl (Quinapril Hcl) 10 Mg Tablet, 10 MG PO BID, #60 TAB 06/23/16 Docusate Sodium* (Docusate Sodium*) 100 Mg Capsule, 100 MG PO BID, #60 CAP 06/23/16 Atorvastatin Calcium (Atorvastatin Calcium) 10 Mg Tablet, 10 MG PO QHS, #30 TAB 06/23/16 Hydrocodone Bit-Acetaminophen* ([place]*) 10-325 Mg Tablet, 1 TAB PO Q4H Y for PAIN, TAB 07/17/14 Enalapril Maleate* (Vasotec*) 10 Mg Tablet, 10 MG PO DAILY, TAB 07/17/14 Primary Care Provider Doris Rolle Pending Labs Laboratory Tests Test 12/07/16 06:09 12/07/16 07:57 White Blood Count 8.410^3/ul (4.8-10.8) Red Blood Count 4.0510^6/ul (4.70-6.10) Hemoglobin 11.4g/dl (14.0-18.0) Hematocrit 35.2% (42.0-52.0) Mean Corpuscular Volume 86.9fl (82.0-101.0) Mean Corpuscular Hemoglobin 28.1pg (29.0-33.0) Mean Corpuscular Hemoglobin Concent 32.4g/dl (32.0-37.0) Red Cell Distribution Width 15.0% (11.5-14.5) Platelet Count 66164^3/UL (140-415) Mean Platelet Volume 9.7fl (7.4-10.4) Neutrophils % 62.5% (39.0-77.0) Lymphocytes % 26.6% (15.0-51.0) Monocytes % 8.3% (0.0-11.0) Eosinophils % 2.2% (0.0-7.0) Basophils % 0.2% (0.0-2.0) Nucleated Red Blood Cells % 0.0/100WBC (0.0-0.0) Neutrophils # (Manual) 5.210^3/ul (1.7-7.5) Lymphocytes # 2.210^3/ul (0.8-2.9) Monocytes # 0.710^3/ul (0.3-0.9) Eosinophils # 0.210^3/ul (0.0-0.5) Basophils # 0.010^3/ul (0.0-0.1) Nucleated Red Blood Cells # 0.010^3/ul (0.0-0.0) Sodium Level 136mmol/L (135-144) Potassium Level 4.2mmol/L (3.5-5.1) Chloride Level 102mmol/L (97-110) Carbon Dioxide Level 28mmol/L (21-31) Anion Gap 10 (8-16) Blood Urea Nitrogen 17mg/dl (7-20) Creatinine 0.81mg/dl (0.61-1.24) Glucose Level 94mg/dl (70-220) Calcium Level 8.8mg/dl (8.4-10.2) Bedside Glucose 96mg/dL (70-220) SYD SANCHEZ MD Dec 07, 2016 13:06
[2016-12-08] MEDS ORDERED: IOHEXOL 0 ML ONE (12:28)
[2016-12-08] MEDS ORDERED: SOD CHLORIDE 0.9% 0 ML ONE (12:28)
[2016-12-08] MEDS ORDERED: IOHEXOL 350MG/ML 50 ML BTL ONE (12:29)
[2016-12-08] MEDS ORDERED: NITROGLYCERIN AEROSOL (4.9 GM) ONE (12:37)
== END 2016-12-07 14:30 | disposition home health service (06) | DRG 93 ==
LOC: VRC 12:40
PROVIDERS: ADMIT Physical Medicine & Rehabilitation; ATTEND Internal Medicine
PROC: F07Z5ZZ Bed Mobility Treatment (ICD-10-PCS; principal; 2016-11-30)
PROC: F08Z2ZZ Grooming/Personal Hygiene Treatment (ICD-10-PCS; 2016-11-30)
DX: G95.9 Disease of spinal cord, unspecified (principal); L97.529 Non-pressure chronic ulcer of other part of left foot with unspecified severity; I10 Essential (primary) hypertension; F44.4 Conversion disorder with motor symptom or deficit; R52 Pain, unspecified; D64.9 Anemia, unspecified; E66.9 Obesity, unspecified; Z68.39 Body mass index [BMI] 39.0-39.9, adult; I89.0 Lymphedema, not elsewhere classified; I73.9 Peripheral vascular disease, unspecified; Z89.512 Acquired absence of left leg below knee; M79.622 Pain in left upper arm
CPT/HCPCS: 71010; 74176; 80048; 80053; 81001; 82962; 85025; 87081; 87086; 93005; 93971; 97110; 97112; 97116; 97163; 97167; 97530; 97535; 97542; J1170; J2270; J3370; J7040; L3310; Q9967

== ENCOUNTER 2017-10-12 11:11 | Inpatient (IN) | END 2017-11-02 19:06 | disposition home health service (06) | DRG 515 ==